=== PATIENT | female | born 1965 | race Caucasian/White ===

== ENCOUNTER 2025-06-28 16:40 | Inpatient (IN) | payer MEDICARE, MEDICAID, SELFPAY ==
[2025-06-28] VITALS (23 sets, daily range): BP systolic 108–162; BP diastolic 58–138; PULSE 75–89; RESP 16–17; TEMP 36.6; O2SAT 92–96; BMI 38.2
--- NOTE | ~2025-06-28 | XR_ITS ---
EXAMINATION: XR chest 1V portable COMPARISON: No comparisons available. HISTORY: Shortness of breath/HX OF COPD AND CHF FINDINGS: Mild pulmonary venous congestion. Small basilar infiltrates. No pneumothorax. Mild cardiomegaly. Mediastinal and hilar contours are within normal limits. Bony thorax no acute abnormality. Miscellaneous: None Impression: Mild CHF Reviewed, dictated and finalized at location P. ODULE ASSEMBLY SUPERVISOR Impression: Mild CHF
--- NOTE | 2025-06-28 16:52 | ED.SOB ---
HPI - SOB/Dyspnea General Chief Complaint: Shortness of Breath/Dyspnea Stated Complaint: sob, decreased appetite. Time Seen by Provider: 06/28/25 16:52 Source: patient and EMS Mode of arrival: EMS History of Present Illness HPI Narrative: 60 YEARS OLD WHITE FEMALE CAME TO THE ED FROM HOME BY AMBULANCE COMPLAINING OF 10 BOUND WEIGHT GAIN OVER THE LAST 3 DAYS, LONG HOURS OF SLEEP, INTERMITTENT LOWER LEGS CRAMPS FOR MONTHS WITHOUT SPECIFIC DIAGNOSIS. PATIENT DENIES ANY FEVER, CHILLS, NAUSEA, VOMITING, CHEST PAIN, SHORTNESS OF BREATH. PATIENT BEEN TO CALL [facility] 3 TIMES OVER THE LAST FEW WEEKS WITH THE SAME SYMPTOM WITHOUT SPECIFIC DIAGNOSIS, SHE IS TELLING ME THAT SHE RECEIVED 1 SHOT OF LASIX THEN DISCHARGED HOME. PATIENT WAS SEEN BY HER FAMILY PHYSICIAN 2 DAYS AGO WITHOUT ANY CHANGE OF MEDICATION OR ANY RECOMMENDATIONS. HISTORY OF COPD CONGESTIVE HEART FAILURE HYPOTHYROIDISM ESSENTIAL TREMORS, QUIT SMOKING 3 YEARS AGO, USES MARIJUANA DAILY, NO ALCOHOL INTAKE. Related Data Home Medications ?Medication ?Instructions ?Recorded ?Confirmed ?Last Taken ?Type albuterol sulfate 2.5 mg/3 mL 2.5 mg inhalation Q4H PRN 06/28/25 06/28/25 06/28/25 History (0.083 %) solution for nebulization shortness of breath or wheezing albuterol sulfate 90 mcg/actuation 2 puff inhalation Q4H PRN 06/28/25 06/28/25 06/28/25 History aerosol inhaler shortness of breath or wheezing aripiprazole 15 mg tablet 15 mg PO DAILY 06/28/25 06/28/25 06/28/25 History famotidine 40 mg tablet 40 mg PO DAILY 06/28/25 06/28/25 06/28/25 History fludrocortisone 0.1 mg tablet 0.1 mg PO .oral 06/28/25 06/28/25 Unknown History fluoxetine 40 mg capsule 40 mg PO QPM 06/28/25 06/28/25 06/28/25 History furosemide 20 mg tablet 20 mg PO DAILY 06/28/25 06/28/25 06/28/25 History hydrocodone 10 mg-acetaminophen 1 tablet PO Q6H PRN pain 06/28/25 06/28/25 06/28/25 History 325 mg tablet hydrocortisone 5 mg tablet 5 mg PO DAILY 06/28/25 06/28/25 06/28/25 History levothyroxine 112 mcg tablet 112 mcg PO DAILY@0630 06/28/25 06/28/25 06/28/25 History primidone 50 mg tablet 50 mg PO DAILY 06/28/25 06/28/25 06/28/25 History tizanidine 4 mg tablet 4 mg PO DAILY 06/28/25 06/28/25 06/28/25 History Allergies Allergy/AdvReac Type Severity Reaction Status Date / Time clarithromycin (From Biaxin) Allergy Severe Anaphylaxis Verified 06/28/25 19:11 Penicillins Allergy Severe Anaphylaxis Verified 06/28/25 19:11 sulfamethoxazole (From Allergy Intermediate foot feel Verified 06/28/25 19:11 Septra) asleep trimethoprim (From Septra) Allergy Intermediate foot feel Verified 06/28/25 19:11 asleep PMFSH Social History Social History Smoking status: Former smoker Alcohol intake: never Substance use: current Substance use type: marijuana Other substance usage details: Gummies at night Last use: Yesterday Lack of Transportation: No Lack of Food: Never True Current Housing: I Have Housing Concerned About Future Housing: No Difficulty Paying Gas/Electric Bills: No Difficulty Paying for Meds: No Currently Unemployed: No Education: Trade/Vocational Certificate Difficulty w/ Childcare or Family Care: No Spiritual care concerns: No Exam Narrative: GENERAL APPEARANCE: WELL-DEVELOPED, WELL-NOURISHED SKIN: NORMAL COLOR, 1+ EDEMA LOWER EXTREMITY BILATERALLY HEAD: NORMOCEPHALIC, NONTRAUMATIC EYES: CLEAR CONJUNCTIVA ENT: OROPHARYNX NORMAL, EARS NORMAL, NOSE NORMAL NECK: SUPPLE, NONTENDER CHEST AND RESPIRATORY: AIRWAY PATENT, NO RESPIRATORY DISTRESS, NO ACCESSORY MUSCLE USE EXPIRATORY WHEEZING AND RHONCHI BILATERALLY HEART: REGULAR RATE/RHYTHM ABDOMEN: SOFT, NONTENDER, NO ORGANOMEGALY, QUIET BOWEL SOUNDS VASCULAR: NORMAL PERIPHERAL PULSES, NORMAL CAPILLARY REFILL. MUSCULOSKELETAL: NORMAL RANGE OF MOTION, NONTENDER BACK NEUROLOGIC: ALERT AND ORIENTED ?3, ICE BAG ASSEMBLER IS NORMAL TESTED, NO GROSS MOTOR DEFICIT Course Vital Signs Vital signs: Vital Signs Temperature 36.6 C 06/28/25 16:40 Pulse Rate 87 06/28/25 16:40 Respiratory Rate 16 06/28/25 16:40 Blood Pressure 157/68 H 06/28/25 16:40 Pulse Oximetry 95 06/28/25 16:40 Oxygen Delivery Nasal Cannula 06/28/25 16:40 Oxygen Flow Rate 2 06/28/25 16:40 Temperature 36.6 C 06/28/25 16:40 Pulse Rate 82 06/28/25 18:50 Respiratory Rate 17 06/28/25 18:50 Blood Pressure 137/87 06/28/25 18:50 Pulse Oximetry 96 06/28/25 18:50 Oxygen Delivery Room Air 06/28/25 18:50 Oxygen Flow Rate 2 06/28/25 18:46 MDM - SOB/Dyspnea MDM Narrative Medical decision making narrative: PATIENT CAME TO THE ED BY AMBULANCE BECAUSE GAINING WEIGHT LONG HOURS SLEEP FOR THE LAST FEW DAYS ALSO HISTORY OF LEG CRAMPS FOR LONG TIME OF UNKNOWN REASON. VITAL SIGNS ARE STABLE PHYSICAL EXAMINATION SHOWING 1+ EDEMA LOWER EXTREMITY BILATERALLY AND EXPIRATORY WHEEZING AND RHONCHI BILATERALLY. DIFFERENTIAL DIAGNOSIS INCLUDE CONGESTIVE HEART FAILURE, COPD EXACERBATION, DEPENDENT EDEMA, RENAL FAILURE, ELECTROLYTE IMBALANCE, BLOOD WORKUP TODAY INCLUDE CBC, CMP, TROPONIN, PRO BMP, MAGNESIUM SHOWED SODIUM 128, POTASSIUM 3.2, CREATININE 1.2, PRO BMP 54, TSH IS 72.000 NO OLD RECORDS FOR COMPARISON. PATIENT NORMALLY GO TO [facility] BLOOD GAS SHOWED ACUTE HYPOXIC RESPIRATORY FAILURE CHEST X-RAY SHOWED MILD CHF ADMIT TO HOSPITALIST DIAGNOSIS: ACUTE HYPOXIC RESPIRATORY FAILURE, COPD, HYPONATREMIA, HYPOKALEMIA, HYPOTHYROIDISM, RENAL FAILURE LEG EDEMA LIKELY SECONDARY TO DEPENDENT EDEMA. PATIENT SIT ON A CHAIR 23/02. Differential Diagnosis Differential diagnosis: Likely other ( ABOVE) Lab Data Attestation: I reviewed the patient's lab results. 06/28/25 17:08 06/28/25 17:08 Labs: Lab Results 06/28/25 06/28/25 06/28/25 Range/Units 17:00 17:07 17:08 WBC 9.7 (4.8-10.8) K/mm3 RBC 3.33 L (4.20-5.40) M/mm3 Hgb 10.8 L (12.0-15.0) g/dL Hct 33.4 L (35.0-49.0) % MCV 100.3 (78.0-102.0) fL MCH 32.4 H (27.0-31.0) pg MCHC 32.3 (32-36) g/dL RDW 15.4 H (11.6-14.4) % Plt Count 361 (150-420) K/mm3 MPV 8.4 L (9.2-11.8) fl Immature Gran % (Auto) 0.4 H (0.0-0.0) % Neut % (Auto) 70.8 H (50.0-70.0) % Lymph % (Auto) 23.6 (18.0-42.0) % [place] % (Auto) 3.7 (2.0-11.0) % Eos % (Auto) 1.2 (1.0-6.0) % Baso % (Auto) 0.3 (0.0-1.0) % Lymph # (Auto) 2.28 (1.10-4.50) K/mm3 [place] # (Auto) 0.36 (0.10-0.90) K/mm3 Eos # (Auto) 0.12 (0.02-0.50) K/mm3 Baso # (Auto) 0.03 (0.00-0.10) K/mm3 Abs Immat Gran (auto) 0.04 H (0.00-0.00) K/mm3 Absolute Neuts (auto) 6.82 (1.70-7.20) K/mm3 Absolute Nucleated RBC 0.00 (0.00-0.00) K/mm3 Nucleated RBC % 0.0 (0-0.0) % PT 9.8 (9.50-12.1) Seconds INR 0.9 APTT 30.2 (23.9-30.70) Sec Sodium 128 L (137-145) mmol/L Potassium 3.2 L (3.4-5.0) mmol/L Chloride 77 L (98-107) mmol/L Carbon Dioxide > 40 H (22-30) mmol/L Anion Gap 10.54387 (4-12) mmol/L BUN 9 (7-17) mg/dL Creatinine 1.29 H (0.7-1.0) mg/dL Estim Creat Clear Calc 45 ml/min Estimated GFR 42 L (59 - ) Glucose 91 (65-110) mg/dL Calculated Osmolality 264 L (285-295) mOsm/kg Calcium 8.9 (8.4-10.2) mg/dL Magnesium 2.0 (1.6-2.3) mg/dL Total Bilirubin 0.1 L (0.2-1.3) mg/dL AST 42 H (14-36) U/L ALT 27 (6-35) U/L Alkaline Phosphatase 69 (38-126) U/L Troponin I < 0.012 (0.000-0.034) ng/mL NT-Pro-B Natriuret Pep 54 (19.9-100) pg/mL Total Protein 6.8 (6.3-8.2) g/dL Albumin 4.1 (3.5-5.1) g/dL TSH 72.000 H (0.465-4.680) uIU/mL Influenza A (RT-PCR) Negative (Negative) Influenza B (RT-PCR) Negative (Negative) RSV (RT-PCR) Negative (Negative) SARS-CoV-2 RNA (RT-PCR) Negative (Negative) ABG Data ABG results: 06/28/25 17:08 Puncture Site Right radial ABG pH 7.44 ABG pCO2 61.7 H ABG pO2 49.8 L ABG HCO3 41.3 H ABG O2 Saturation 88.1 L ABG Base Excess 14.7 H Oxyhemoglobin 87.1 L O2 Delivery Device Nasal cannula O2 Liters/Min 2.0 Imaging Data Radiologist's impression: Impressions Chest X-Ray 06/28/25 17:08 Impression: Mild CHF ECG Data EKG #1: Attestation: I personally reviewed and interpreted this ECG as follows: ECG completion date: 06/28/25 Interpretation: NORMAL SINUS RHYTHM AT 82 BEATS PER MINUTE, NONSPECIFIC ST T-WAVE ABNORMALITY, BORDERLINE EKG, NO PREVIOUS EKG AVAILABLE FOR COMPARISON Critical Care Time Critical Care Time Critical Care Time: No Discharge Plan Discharge Clinical Impression: Acute hypoxic respiratory failure, COPD (chronic obstructive pulmonary disease), Hypokalemia, Hyponatremia, Hypothyroidism, Renal failure Patient Disposition: Still a Patient Condition: Stable
--- NOTE | 2025-06-28 16:53 | ECG_ITS ---
Test Date: 2025-06-28 17:12:27 Measurements Intervals [place] Rate: 82 P: 37 DC: 183 QRS: 37 QRSD: 110 T: 10 QT: 387 QTc: 453 Interpretive Statements SINUS RHYTHM NONSPECIFIC ST ABNORMALITY ABNORMAL ECG No previous ECG available for comparison Electronically Signed On 06-28-2025 17:43:38 MANUAL PLATE FILLER by Franklyn Reyes M.D.
[2025-06-28 17:12] LABS: HCO3 ABG 41.3 mmol/L (23-29); Oxygen Saturation ABG 88.1 % (95-97); PCO2 ABG 61.7 mmHg (35-45); PO2 ABG 49.8 mmHg (80-90)
[2025-06-28 17:13] LABS: Liters per Minute 2.0 LPM; Modified Allen's Test Pass; Site Drawn RIGHT RADIAL
[2025-06-28 17:14] LABS: Hematocrit 33.4 % (35.0-49.0); Hemoglobin 10.8 g/dL (12.0-15.0); Immature Granulocyte Percent A 0.4 % (0.0-0.0); Lymphocytes Absolute Auto 2.28 K/mm3 (1.10-4.50); Mean Corpuscular HGB Conc 32.3 g/dL (32-36); Mean Corpuscular Hemoglobin 32.4 pg (27.0-31.0); Mean Corpuscular Volume 100.3 fL (78.0-102.0); Nucleated Red Blood Cells Absolute Auto 0.00 K/mm3 (0.00-0.00); Nucleated Red Blood Cells Perc 0.0 % (0-0.0); Platelet Count Result 361 K/mm3 (150-420); Red Blood Count 3.33 M/mm3 (4.20-5.40); White Blood Count 9.7 K/mm3 (4.8-10.8)
[2025-06-28 17:25] LABS: Alanine Aminotransferase 27 U/L (6-35); Albumin Level 4.1 g/dL (3.5-5.1); Alkaline Phosphatase 69 U/L (38-126); Anion Gap 10.99999 mmol/L (4-12); Aspartate Amino Transferase 42 U/L (14-36); Bilirubin,Total 0.1 mg/dL (0.2-1.3); Blood Urea Nitrogen 9 mg/dL (7-17); Calcium 8.9 mg/dL (8.4-10.2); Carbon Dioxide > 40 mmol/L (22-30); Chloride 77 mmol/L (98-107); Estimated CRCL calculation 45 ml/min; Estimated Glomerular Filt Rate 42; Glucose 91 mg/dL (65-110); Magnesium 2.0 mg/dL (1.6-2.3); Osmolality Calculated 264 mOsm/kg (285-295); Potassium 3.2 mmol/L (3.4-5.0); Sodium 128 mmol/L (137-145); Total Protein 6.8 g/dL (6.3-8.2)
[2025-06-28 17:27] LABS: INR 0.9; Partial Thromboplastin Time 30.2 Sec (23.9-30.70); Prothrombin Time 9.8 Seconds (9.50-12.1)
[2025-06-28 17:37] LABS: NT Pro B Type Natriuretic Pept 54 pg/mL (19.9-100); Troponin I < 0.012 ng/mL (0.000-0.034)
--- OUTSIDE RECORDS SUMMARY | 2025-06-28 17:44 | XMS_ITS ---
Author Organization Unknown Address [address] [place] [phone] Phone Care Team Providers Care Bufferer Name Role Phone EVERTON OCASIO Attending Unavailable CARLOS Cifuentes Primary Unavailable Immunization Immunization Date Status Additional Notes Code Code System Influenza, split virus, trivalent, preservative 05/09/2013 Completed 141 CVX COVID-19, mRNA, LNP-S, PF, 3 0 mcg/0.3 mL dose 03/21/2021 Completed 208 CVX COVID-19, mRNA, LNP-S, PF, 3 0 mcg/0.3 mL dose 04/11/2021 Completed 208 CVX Results ACTH(REF) - Collect Date/Hossein e: 01/01/2024 08:37 [facility] ID: [id number] [address] [place] [address], [phone] LOINC: 2141-0 Test Value Unit Reference Range Code Code System Flag ACTH, Plasma 106.0 7.2-63.3 2141-0 LOINC H CORTISOL - Collect Date/Time : 01/01/2024 08:37 [facility] ID: [id number] [address] [place] [address], [id number] LOINC: 2143-6 Test Value Unit Reference Range Code Code System Flag COLLECTION DATE 01-01-24 COLLECTION TIME 0837 Cortisol 6.5 6.2-19.4 2143-6 LOINC BASIC METABOLIC PANEL - Kate ect Date/Time: 01/01/2024 08:37 [facility] ID: [id number] [address] [place], [place], [phone] LOINC: 47752-2 Test Value Unit Reference Range Code Code System Flag FASTING YES BUN 20 mg/dL L=7 H=20 3094-0 LOINC CREATININE 1.40 mg/dL L=0.52 H=1.04 2160-0 LOINC H GLUCOSE 92 mg/dL L=74 H=106 2345-7 LOINC CALCIUM 8.7 mg/dL L=8.3 H=10.5 45845-2 LOINC SODIUM 136 mmol/L L=132 H=144 2951-2 LOINC POTASSIUM 5.0 mmol/L L=3.5 H=5.1 2823-3 LOINC CHLORIDE 97 mmol/L L=98 H=107 2075-0 LOINC L CO2 37.0 mmol/L L=22.0 H=30.0 2028-9 LOINC H ANION GAP 7 L=10 H=20 08702-7 LOINC L BUN/CREAT 14.3 3097-3 LOINC AGE 58 84770-4 LOINC eGFR NON-AFR 41 ml/min eGFR AFR AMER 50 ml/min Social History Type Status Start Date End Date Code Code Syst em Smoking History Current every day smoker 552406599 SNOMED CT Sex Female Medications Medication Start Date End Date Route Frequency Dose Code Code System Medication Instructions Home Meds Levothyroxine Sodium 112MCG Oral Tablet 08/19/2018 Unknown ORAL ONCE A DAY 112 MCG 075419 RxNorm TAKE 112 MCG ORAL ONCE A DAY Omeprazole 40MG Oral Capsule, Delayed Release 08/19/2018 Unknown ORAL ONCE A DAY 40 MILLIGRA MS 049251 RxNorm TAKE 40 MILLIGRAM S ORAL ONCE A DAY predniSONE 10MG Oral Tablet 02/20/2023 Unknown ORAL DAILY WITH MEAL 20 MILLIGRA MS 427033 RxNorm TAKE 20 MILLIGRAM S ORAL DAILY WITH MEAL FOR 5 DAYS FOLLOWED BY 10 MG PO FAILY FOR 5 DAYS ARIPiprazole 15MG Oral Tablet 02/20/2023 Unknown ORAL ONCE A DAY 15 MILLIGRA MS 787969 RxNorm TAKE 15 MILLIGRAM S ORAL ONCE A DAY FLUoxetine 20MG Oral Capsule 02/20/2023 Unknown ORAL ONCE A DAY 20 MILLIGRA MS 912874 RxNorm TAKE 20 MILLIGRAM S ORAL ONCE A DAY Famotidine 40MG Oral Tablet 02/20/2023 Unknown ORAL AT BEDTIME 40 MILLIGRA MS 950194 RxNorm TAKE 40 MILLIGRAM S ORAL AT BEDTIME Fludrocortisone Acetate 0.1MG Oral Tablet 02/20/2023 Unknown ORAL ONCE A DAY 0.1 MILLIGRA MS 377900 RxNorm TAKE 0.1 MILLIGRAM S ORAL ONCE A DAY HYDROcodone bitartrate-aceta minophen 10MG-300MG Oral Tablet 02/20/2023 Unknown ORAL NEEDED EVERY 6 HOURS 1 TABLET 774868 RxNorm TAKE 1 TABLET ORAL NEEDED EVERY 6 HOURS FOR PAIN Hydrocortisone 5MG Oral Tablet 02/20/2023 Unknown ORAL DAILY WITH MEAL 15 MILLIGRA MS 19770309 RxNorm TAKE 15 MILLIGRAM S ORAL DAILY WITH MEAL Hydrocortisone 5MG Oral Tablet 02/20/2023 Unknown ORAL EVERY EVENING 10 MILLIGRA MS 19770309 RxNorm TAKE 10 MILLIGRAM S ORAL EVERY EVENING Incruse Ellipta 62.5MCG/1ACT Inhalation Powder 02/20/2023 Unknown INHALATION ONCE A DAY 1 unit(s) 5599256 RxNorm 1 EACH INHALATIO N ONCE A DAY Potassium Chloride 10MEQ Oral Capsule, Extended Release 02/20/2023 Unknown ORAL ONCE A DAY 10 MEQ 642566 RxNorm TAKE 10 MEQ ORAL ONCE A DAY Primidone 50MG Oral Tablet 02/20/2023 Unknown ORAL AT BEDTIME 125 MILLIGRA MS 568250 RxNorm TAKE 125 MILLIGRAM S ORAL AT BEDTIME Primidone 50MG Oral Tablet 02/20/2023 Unknown ORAL ONCE A DAY 200 MILLIGRA MS 771092 RxNorm TAKE 200 MILLIGRAM S ORAL ONCE A DAY Primidone 50MG Oral Tablet 02/20/2023 Unknown ORAL DAILY AT 1200 125 MILLIGRA MS 102776 RxNorm TAKE 125 MILLIGRAM S ORAL DAILY AT 1200 Symbicort 160/4.5 160MCG-4.5MCG/1 Actu Inhalation Aerosol Liquid 02/20/2023 Unknown INHALATION TWICE A DAY 2 unit(s) 1793360 RxNorm 2 EACH INHALATIO N TWICE A DAY Vitamin D3 1000IU Oral Tablet 02/20/2023 Unknown ORAL ONCE A DAY 1 TABLET 19930102 RxNorm TAKE 1 TABLET ORAL ONCE A DAY Assessment You had the following problems:DIARRHEACONTACT WITH AND (SUSPECTED) EXPOSURE TO COVID-19ENCOUNTER FOR SCREENING FOR COVID-19 Hospital Discharge Instructions Should you have any questions prior to discharge, please contact a member of your healthcare team. If you have left the hospital and have any questions, please contact your primary care physician. Reason For Referral No Data Found Problems Problem Start Date Resolved Date Status Code Code System DIARRHEA active 40525877 SNOMED-CT CONTACT WITH AND (SUSPECTED) EXPOSURE TO COVID-19 active 895837440 SNOMED- CT ENCOUNTER FOR SCREENING FOR COVID-19 active 095454054 SNOMED-CT Allergies and Adverse Reactions Allergy Substance Reaction Severity Start Date Concern Status Code Code System SULFA (sulfonamide) FOOT WENT TO SLEEP (SNOMED-CT: null) Moderate Active 47320906 SNOMED-CT BIAXIN ANGIOEDEMA (SNOMED-CT: null) Moderate Active 757789 RxNorm PENICILLIN ANGOIEDEMA (SNOMED-CT: null) Moderate Active Plan of Treatment Hai Established Patient 026 US Echo With Color (21805) 07/12/2025 CT Chest CA Screen (43370) 07/21/2025 Encounters Encounter Diagnosis Start Date Code Code Sys tem Unspecified adrenocortical insufficiency 01/01/2024 SNOMED-CT Personal Care Team Section Performer Name Performer Role Active Date Inactive GLADYS Church PCP - Primary care physician 2021-03-02 2022-04-01 SANDRA GONZALEZ PCP - Primary care physician 2022-04-01
--- OUTSIDE RECORDS SUMMARY | 2025-06-28 17:44 | XMS_ITS ---
Author Organization Unknown Address [address] [place] [phone] Phone Care Team Providers Care Farm Products Shipper Name Role Phone EMMA BRISCOE Attending Unavailable CARLOS Cifuentes Primary Unavailable Immunization Immunization Date Status Additional Notes Code Code System Influenza, split virus, trivalent, preservative 05/09/2013 Completed 141 CVX COVID-19, mRNA, LNP-S, PF, 3 0 mcg/0.3 mL dose 03/21/2021 Completed 208 CVX COVID-19, mRNA, LNP-S, PF, 3 0 mcg/0.3 mL dose 04/11/2021 Completed 208 CVX Social History Type Status Start Date End Date Code Code Syst em Smoking History Current every day smoker 287021943 SNOMED CT Sex Female Medications Medication Start Date End Date Route Frequency Dose Code Code System Medication Instructions Home Meds Levothyroxine Sodium 112MCG Oral Tablet 08/19/2018 Unknown ORAL ONCE A DAY 112 MCG 678260 RxNorm TAKE 112 MCG ORAL ONCE A DAY Omeprazole 40MG Oral Capsule, Delayed Release 08/19/2018 Unknown ORAL ONCE A DAY 40 MILLIGRA MS 805361 RxNorm TAKE 40 MILLIGRAM S ORAL ONCE A DAY predniSONE 10MG Oral Tablet 02/20/2023 Unknown ORAL DAILY WITH MEAL 20 MILLIGRA MS 115740 RxNorm TAKE 20 MILLIGRAM S ORAL DAILY WITH MEAL FOR 5 DAYS FOLLOWED BY 10 MG PO FAILY FOR 5 DAYS ARIPiprazole 15MG Oral Tablet 02/20/2023 Unknown ORAL ONCE A DAY 15 MILLIGRA MS 435029 RxNorm TAKE 15 MILLIGRAM S ORAL ONCE A DAY FLUoxetine 20MG Oral Capsule 02/20/2023 Unknown ORAL ONCE A DAY 20 MILLIGRA MS 203847 RxNorm TAKE 20 MILLIGRAM S ORAL ONCE A DAY Famotidine 40MG Oral Tablet 02/20/2023 Unknown ORAL AT BEDTIME 40 MILLIGRA MS 911384 RxNorm TAKE 40 MILLIGRAM S ORAL AT BEDTIME Fludrocortisone Acetate 0.1MG Oral Tablet 02/20/2023 Unknown ORAL ONCE A DAY 0.1 MILLIGRA MS 547696 RxNorm TAKE 0.1 MILLIGRAM S ORAL ONCE A DAY HYDROcodone bitartrate-aceta minophen 10MG-300MG Oral Tablet 02/20/2023 Unknown ORAL NEEDED EVERY 6 HOURS 1 TABLET 432619 RxNorm TAKE 1 TABLET ORAL NEEDED EVERY [...] Unknown INHALATION ONCE A DAY 1 unit(s) 7302472 RxNorm 1 EACH INHALATIO N ONCE A DAY Potassium Chloride 10MEQ Oral Capsule, Extended Release 02/20/2023 Unknown ORAL ONCE A DAY 10 MEQ 781601 RxNorm TAKE 10 MEQ ORAL ONCE A DAY Primidone 50MG Oral Tablet 02/20/2023 Unknown ORAL AT BEDTIME 125 MILLIGRA MS 042046 RxNorm TAKE 125 MILLIGRAM S ORAL AT BEDTIME Primidone 50MG Oral Tablet 02/20/2023 Unknown ORAL ONCE A DAY 200 MILLIGRA MS 131976 RxNorm TAKE 200 MILLIGRAM S ORAL ONCE A DAY Primidone 50MG Oral Tablet 02/20/2023 Unknown ORAL DAILY AT 1200 125 MILLIGRA MS 642478 RxNorm TAKE 125 MILLIGRAM S ORAL DAILY AT 1200 Symbicort 160/4.5 160MCG-4.5MCG/1 Actu Inhalation Aerosol Liquid 02/20/2023 Unknown INHALATION TWICE A DAY 2 unit(s) 9998203 RxNorm 2 EACH INHALATIO N TWICE A [...] Date Status Code Code System DIARRHEA active 41620391 SNOMED-CT CONTACT WITH AND (SUSPECTED) EXPOSURE TO COVID-19 active 888553234 SNOMED- CT ENCOUNTER FOR SCREENING FOR COVID-19 active 715474413 SNOMED-CT Allergies and Adverse Reactions Allergy Substance Reaction Severity Start Date Concern Status Code Code System SULFA (sulfonamide) FOOT WENT TO SLEEP (SNOMED-CT: null) Moderate Active 86957781 SNOMED-CT BIAXIN ANGIOEDEMA (SNOMED-CT: null) Moderate Active 911027 RxNorm PENICILLIN ANGOIEDEMA (SNOMED-CT: null) Moderate Active Plan of Treatment Hai Established Patient 026 US Echo With Color (61832) 07/12/2025 CT Chest CA Screen (12868) 07/21/2025 Encounters Encounter Diagnosis Start Date Code Code Sys tem Diarrhea, unspecified 01/27/2024 SNOMED -CT Personal Care Team Section Performer Name Performer Role Active Date Inactive GLADYS Church PCP - Primary care physician 2021-03-02 2022-04-01 SANDRA GONZALEZ PCP - Primary care physician 2022-04-01
--- OUTSIDE RECORDS SUMMARY | 2025-06-28 17:44 | XMS_ITS | Clinical Summary ---
Author Organization [facility] Address [address] [place] [address] Care Team Providers Care Recruiting Manager Name Role Phone Kevin Limon MD Primary Care Provider [phone] Allergies Active Allergy Reactions Criticality Noted Date Comments Clarithromycin Rash Low 04/04/2022 Penicillins Rash Low 04/04/2022 Sulfamethoxazole-Trimethoprim Other (see comment) 04/04/2022 numbness Medications ARIPiprazole (ABILIFY) 15 MG tabletIndicatio ns:mood Take 15 mg by mouth daily. Indications: mood 2 Active albuterol sulfate HFA 108 (90 Base) MCG/ACT inhaler Inhale 2 puffs into the lungs every 6 (six) hours as needed for Wheezing. Active HYDROcodone-elenita taminophen (NORCO) 10-325 MG tablet Take 1 tablet by mouth every 6 (six) hours as needed for Pain. Active levothyroxine (SYNTHROID) 112 MCG tabletIndicatio ns:thyroid Take 112 mcg by mouth every morning. Indications: thyroid 2 Active omeprazole (PRILOSEC) 20 MG capsuleIndicati ons:reflux Take 20 mg by mouth 2 (two) times a day. Indications: reflux 2 Active potassium chloride CR (KLOR-CON M) 10 MEQ tabletIndicatio ns:supplement Take 10 mEq by mouth daily. Indications: supplement 2 Active PARoxetine (PAXIL) 20 MG tablet [The details of the medication are not available because there are pending changes by a home health clinician.] 30 tablet 1 2 Active Additional Information Patient taking differently:20 mg Oral Nightly,Indications: mood, Reported on 05/06/2022 primidone (MYSOLINE) 250 MG tablet [The details of the medication are not available because there are pending changes by a home health clinician.] 30 split tab 1 2 Active Additional Information Patient taking differently: 0.5 tabletOral Nightly at bedtime,Indications: seizure, Reported on 04/16/2022 primidone (MYSOLINE) 50 MG tablet [The details of the medication are not available because there are pending changes by a home health clinician.] 120 tablet 2 Active Additional Information Patient taking differently:200 mg Oral Daily,Indications: seizure, Reported on 05/06/2022 primidone (MYSOLINE) 250 MG tablet [The details of the medication are not available because there are pending changes by a home health clinician.] 30 tablet 1 2 Active Additional Information Patient taking differently: 0.5 tabletOral Daily before lunch,Indications: seizure, Reported on 04/16/2022 Emollient (BOUDREAUXS BABY BUTT SMOOTH EX)Indications: red sore sacral skin Apply 1 Application topically 3 (three) times daily as needed (red sore sacral skin). Indications: red sore sacral skin 2 Active Calcium Carbonate+Vitam in D 600-200 MG-UNIT TabIndications: supplement Take 1 tablet by mouth daily. Indications: supplement 2 Active Vitamin D3, cholecalciferol , 2000 UNIT Tab tabletIndicatio ns:supplement Take 2,000 Units by mouth daily. Indications: supplement 2 Active OXYGENIndicatio ns:oxygen 1 L/min by Nasal route continuous. Indications: oxygen 2 Active Active Problems Problem Noted Date Diagnosed Date Acute on chronic systolic co ngestive heart failure (CMS/HCC) 05/06/2022 Elevated troponin 04/03/2022 Other chest pain 04/03/2022 Hyponatremia 04/01/2022 Family History Medical History Relation Comments Heart Disease Father Relation Status Comments Father Social History Tobacco Use Types Packs/Day Years Used Date Smoking Tobacco: Every Day Alcohol Use Standard Drinks/Week Comments Never 0 (1 standard drink = 0.6 oz pur e alcohol) Comments Unknown Sex and Gender Information Value Date Recorded Sex Assigned at Not on file Legal Sex Female 8:58 PM FIRST BEATER Gender Identity Not on file Sexual Orientation Not on file Last Filed Vital Signs Vital Sign Reading Time Taken Comments Blood Pressure 114/72 06/11/2022 2:41 PM FIRST BEATER Pulse 94 06/11/2022 2:41 PM FIRST BEATER Temperature 35.8 C (96.4 F) 06/11/2022 2:41 PM FIRST BEATER Respiratory Rate 16 06/11/2022 2:41 PM FIRST BEATER Oxygen Saturation 96% 06/11/2022 2:41 PM FIRST BEATER Inhaled Oxygen Concentration - - Weight 60.5 kg (133 lb 6.4 oz) 05/06/2022 9:50 A M CDT Height 160 cm (5' 3) 05/06/2022 9:50 AM CDT Body Mass Index 23.63 05/06/2022 9:50 AM CDT Plan of Treatment Health Maintenance Due Date Last Done Comments Cervical Cancer Screening Pa p Smear (Age 30 to 64) Every 3 Years 1965 Colorectal Cancer Screening Colonoscopy (10 Years) 1965 Annual Physical 1966 Hepatitis C 1981 DTaP, Tdap and Td Vaccines ( 1 - Tdap) 1982 Pneumococcal Vaccine: 50+ Ye ars (1 of 2 - PCV) 1982 Cervical Cancer Screening Pa p with HPV Testing (Age 30 to 64) Every 5 Years 1993 Cervical Cancer Screening with HPV 1993 Zoster Vaccines (1 of 2) 2013 Mammogram Screening 07/28/2021 07/28/2019 RSV Immunization or 60+ Years (1 - Risk 60-74 years 1-dose series) 2023 COVID-19 Vaccine ( - 2024-2 6 season) 2025 Influenza Adult (#1) 2025 Hepatitis A Vaccines Aged Out No long er eligible based on patient's age to complete this topic Meningococcal B Vaccine Aged Out No l onger eligible based on patient's age to complete this topic Meningococcal Vaccine Aged Out No emily karla eligible based on patient's age to complete this topic RSV Immunizations Under 20 Months Aged Out No longer eligible based on patient's age to complete this topic Goals Goal Patient Goal Type Associated Problems Recent Progress Patient-Stated? Author Patient will return to prior living situation and remain independent in ADLs upon discharge from hospital Lifestyle No Danisha Bhagat, chairman president and chief executive officer Procedure Name Priority Date/Time Associated Diagnosis Comments MG SCREENING W BABATUNDE WANDA DIGI Routine 07/28/2019 9:24 AM FIRST BEATER Visit for screening mammogram from Last 3 Months or Most Recently Relevant to Health Maintenance Results * MG SCREENING W BABATUNDE WANDA DIGI (07/28/2019 9:24 AM FIRST BEATER) Anatomical Region Laterality Modality Breast Bilateral Mammography 08/01/2019 8:37 AM FIRST BEATER Impressions 08/01/2019 8:41 AM FIRST BEATER IMPRESSION: No interval features to suggest malignancy. In the absence of clinical symptoms, return for annual screening due in one year. RECOMMENDATION: Routine Screening, BILATERAL in 1 year ASSESSMENT: ACR BI-RADS 2 - BENIGN FINDING(S) Interpreted By: Vera Youssef MD, 08/01/2019 8:37 AM Narrative 08/01/2019 8:41 AM FIRST BEATER EXAMINATION: BILATERAL SCREENING MAMMOGRAPHY CLINICAL INDICATION: 54 years of age female routine screening. COMPARISON: Screening mammogram(s) 07/20, 07/19, 06/18 TECHNIQUE: Digital CC & MLO views. Tomosynthesis imaging acquisition Study read with the assistance of a computer-aided detection system. TISSUE DENSITY: There are scattered areas of fibroglandular density. FINDINGS: Few scattered calcifications. Stable glandular pattern with similar asymmetric patches. No suspicious grouping of microcalcifications, architectural distortion, or new dominant suspicious nodule 3 dimensionally demonstrated in either breast. Ivan Rubin MD MAMMO Final Result from Last 3 Months or Most Recently Relevant to Health Maintenance Insurance [employer] MEDICARE [facility] Advance Directives * Full Code (Latest Code Status on File) Date Activated Date Inactivated Comments 04/16/2022 11:14 AM * Full Code Date Activated Date Inactivated Comments 04/01/2022 11:27 PM 04/10/2022 2:52 PM Care Teams Recruiting Manager Relationship Specialty Start Date End Date Kevin Limon MD PCP - General FAMILY PRACTICE 04/10/22
--- OUTSIDE RECORDS SUMMARY | 2025-06-28 17:44 | XMS_ITS ---
Author Organization Unknown Address [address] [place] [phone] Phone Care Team Providers Care Assembler Camper Name Role Phone WARRENKelton LUIS ARMANDO Attending Unavailable CARLOS Cifuentes Primary Unavailable Immunization [...] em Smoking History Current every day smoker 658239870 SNOMED CT Sex Female Medications Medication Start Date End Date Route Frequency Dose Code Code System Medication Instructions Home Meds Levothyroxine Sodium 112MCG Oral Tablet 08/19/2018 Unknown ORAL ONCE A DAY 112 MCG 683705 RxNorm TAKE 112 MCG ORAL ONCE A DAY Omeprazole 40MG Oral Capsule, Delayed Release 08/19/2018 Unknown ORAL ONCE A DAY 40 MILLIGRA MS 997664 RxNorm TAKE 40 MILLIGRAM S ORAL ONCE A DAY predniSONE 10MG Oral Tablet 02/20/2023 Unknown ORAL DAILY WITH MEAL 20 MILLIGRA MS 007351 RxNorm TAKE 20 MILLIGRAM S ORAL DAILY WITH MEAL FOR 5 DAYS FOLLOWED BY 10 MG PO FAILY FOR 5 DAYS ARIPiprazole 15MG Oral Tablet 02/20/2023 Unknown ORAL ONCE A DAY 15 MILLIGRA MS 787955 RxNorm TAKE 15 MILLIGRAM S ORAL ONCE A DAY FLUoxetine 20MG Oral Capsule 02/20/2023 Unknown ORAL ONCE A DAY 20 MILLIGRA MS 774990 RxNorm TAKE 20 MILLIGRAM S ORAL ONCE A DAY Famotidine 40MG Oral Tablet 02/20/2023 Unknown ORAL AT BEDTIME 40 MILLIGRA MS 114955 RxNorm TAKE 40 MILLIGRAM S ORAL AT BEDTIME Fludrocortisone Acetate 0.1MG Oral Tablet 02/20/2023 Unknown ORAL ONCE A DAY 0.1 MILLIGRA MS 903278 RxNorm TAKE 0.1 MILLIGRAM S ORAL ONCE A DAY HYDROcodone bitartrate-aceta minophen 10MG-300MG Oral Tablet 02/20/2023 Unknown ORAL NEEDED EVERY 6 HOURS 1 TABLET 359741 RxNorm TAKE 1 TABLET ORAL NEEDED EVERY [...] Unknown INHALATION ONCE A DAY 1 unit(s) 1463825 RxNorm 1 EACH INHALATIO N ONCE A DAY Potassium Chloride 10MEQ Oral Capsule, Extended Release 02/20/2023 Unknown ORAL ONCE A DAY 10 MEQ 552659 RxNorm TAKE 10 MEQ ORAL ONCE A DAY Primidone 50MG Oral Tablet 02/20/2023 Unknown ORAL AT BEDTIME 125 MILLIGRA MS 484512 RxNorm TAKE 125 MILLIGRAM S ORAL AT BEDTIME Primidone 50MG Oral Tablet 02/20/2023 Unknown ORAL ONCE A DAY 200 MILLIGRA MS 538299 RxNorm TAKE 200 MILLIGRAM S ORAL ONCE A DAY Primidone 50MG Oral Tablet 02/20/2023 Unknown ORAL DAILY AT 1200 125 MILLIGRA MS 585685 RxNorm TAKE 125 MILLIGRAM S ORAL DAILY AT 1200 Symbicort 160/4.5 160MCG-4.5MCG/1 Actu Inhalation Aerosol Liquid 02/20/2023 Unknown INHALATION TWICE A DAY 2 unit(s) 4876817 RxNorm 2 EACH INHALATIO N TWICE A [...] Date Status Code Code System DIARRHEA active 01001411 SNOMED-CT CONTACT WITH AND (SUSPECTED) EXPOSURE TO COVID-19 active 037974061 SNOMED- CT ENCOUNTER FOR SCREENING FOR COVID-19 active 152868170 SNOMED-CT Allergies and Adverse Reactions Allergy Substance Reaction Severity Start Date Concern Status Code Code System SULFA (sulfonamide) FOOT WENT TO SLEEP (SNOMED-CT: null) Moderate Active 49680064 SNOMED-CT BIAXIN ANGIOEDEMA (SNOMED-CT: null) Moderate Active 191310 RxNorm PENICILLIN ANGOIEDEMA (SNOMED-CT: null) Moderate Active Plan of Treatment Hai Established Patient 026 US Echo With Color (26781) 07/12/2025 CT Chest CA Screen (19757) 07/21/2025 Encounters Encounter Diagnosis Start Date Code Code Sys tem 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 Valles Event Data SpO2 Pulse %SpO2 Level Events Below% Time% Total Events 3 3 99 95 0 100 100.0 Time in Events 5.3 0.9 94 - 90 2 95 98.7 Avg. Event Dur. 106.7 18.7 89 85 1 90 2.9 Index (1h) 0.5 84 80 0 85 0.8 Oxygen Desat Index .05 79 75 0 80 0.1 % Artifact 25.5 25.7 74 70 0 75 0.0 Adjusted Index (1hr) 0.6 0.6 69 65 0 70 0.0 64 60 0 65 0.0 % SpO2 Data Basal SpO2% 91.8 Time (min) < 88% 3.3 Events < 88% 0 Max Single time <88% 80 sec at 21:45 Minimum SpO2 % 78 Maximum SpO2 % 96 Avg. Low SpO2 % 90.7 Avg Low SpO2 <88% ---- Pulse Data Avg. Pulse Rate (bpm) 72.1 Low Pulse Rate (bpm) 59 High Pulse Rate (bpm) 115 Physician Impression: The above test showed no significant desaturation overnight on 2 L oxygen.
--- OUTSIDE RECORDS SUMMARY | 2025-06-28 17:44 | XMS_ITS ---
Author Organization Unknown Address [address] [place] [phone] Phone Care Team Providers Care Evaluation Manager Name Role Phone NEREIDA Orourke Attending Unavailable CARLOS Cifuentes Primary Unavailable Immunization Immunization Date Status Additional Notes Code Code System Influenza, split virus, trivalent, preservative 05/09/2013 Completed 141 CVX COVID-19, mRNA, LNP-S, PF, 3 0 mcg/0.3 mL dose 03/21/2021 Completed 208 CVX COVID-19, mRNA, LNP-S, PF, 3 0 mcg/0.3 mL dose 04/11/2021 Completed 208 CVX Results COMPREHENSIVE METABOLIC PANE L - Collect Date/Time: 06/16/2025 11:47 [facility] ID: [id number] [place], [place], [phone] LOINC: 47353-7 Test Value Unit Reference Range Code Code System Flag FASTING UNKNOWN BUN 15 mg/dL L=7 H=20 3094-0 LOINC CREATININE 1.50 mg/dL L=0.52 H=1.04 2160-0 LOINC H AGE 60 94351-1 LOINC eGFR 39 GLUCOSE 108 mg/dL L=74 H=106 2345-7 LOINC H SODIUM 133 mmol/L L=132 H=144 2951-2 LOINC POTASSIUM 3.7 mmol/L L=3.5 H=5.1 2823-3 LOINC CHLORIDE 84 mmol/L L=98 H=107 2075-0 LOINC L CO2 41.0 mmol/L L=22.0 H=30.0 2028-9 LOINC H ANION GAP 12 L=10 H=20 32479-1 LOINC OSMOLALITY 277 mOs/kG L=280 H=296 13000-8 LOINC L BUN/CREAT 10.0 3097-3 LOINC CALCIUM 8.9 mg/dL L=8.3 H=10.5 00060-1 LOINC AST 29 U/L L=15 H=46 1920-8 LOINC ALT 22 U/L L=9 H=72 1742-6 LOINC ALKALINE PHOS 73 U/L L=38 H=126 6768-6 LOINC TOTAL BILI 0.1 mg/dL L=0.2 H=1.3 1975-2 LOINC L ALBUMIN 3.9 G/dL L=3.5 H=5.0 1751-7 LOINC TOTAL PROTEIN 6.6 g/L L=6.3 H=8.2 2885-2 LOINC A/G RATIO 1.4 62397-9 LOINC LACTIC ACID - Collect Date/T marga: 06/16/2025 11:47 [facility] ID: [id number] [address] [place] [address], [phone] LOINC: 65395-2 Test Value Unit Reference Range Code Code System Flag LACTIC ACID 1.8 mmol/L L=0.7 H=2.6 10864-0 LOINC MAGNESIUM - Collect Date/Hossein e: 06/16/2025 11:47 [facility] ID: [id number] [address] [place] [address], [phone] LOINC: 24667-5 Test Value Unit Reference Range Code Code System Flag MAGNESIUM 2.2 mg/dL L=1.6 H=2.3 37004-8 LOINC CBC W/ DIFF - Collect Date/T marga: 06/16/2025 11:47 [facility] ID: [id number] [address] [place] [address], [phone] LOINC: 89820-9 Test Value Unit Reference Range Code Code System Flag WBC 9.2 10^3uL L=4.0 H=10.5 RBC 3.14 10^6uL L=4.20 H=5.40 L HEMOGLOBIN 10.3 g/dL L=12.0 H=16.0 718-7 LOINC L HEMATOCRIT 32.8 VOL% L=37.0 H=47.0 4544-3 LOINC L MCV 104.5 fL L=81.0 H=99.0 H MCH 32.8 pg L=27.0 H=32.0 H MCHC 31.4 g/dL L=32.0 H=36.0 L PLATELETS 290 10^3uL L=100 H=400 74783-9 LOINC RDW 15.9 % L=11.7 H=15.5 H %GRAN 78.8 % L=40.0 H=70.0 41435-5 LOINC H %LYMPH 16.2 % L=20.0 H=45.0 736-9 LOINC L %MONO 3.4 % L=2.0 H=10.0 07195-0 LOINC %EOS 1.0 % L=0.0 H=6.0 713-8 LOINC %BASO 0.4 % L=0.0 H=3.0 706-2 LOINC #NEUT 7.3 10^3uL L=1.9 H=7.6 17091-3 LOINC #LYMPH 1.5 10^3uL L=0.9 H=4.9 40037-4 LOINC #MONO 0.3 10^3uL L=0.1 H=0.9 03825-3 LOINC #EOS 0.1 10^3uL L=0.0 H=0.6 712-0 LOINC #BASO 0.04 10^3uL L=0.00 H=0.10 39796-9 LOINC #IM GRANS 0.0 10^3uL L=0.0 H=7.0 57769-4 LOINC %IM GRANS 0.2 % L=0.0 H=5.0 18732-9 LOINC %NRB 0.0 L=0.0 H=0.2 73602-5 LOINC #NRB 0.000 L=0.000 H=0.012 56435-2 LOINC MANUAL DIFF NOT INDICATED RBC MORPH NOT INDICATED D DIMER - Collect Date/Time: 06/16/2025 11:47 [facility] ID: [id number] [address] [place] [address], [phone] LOINC: Test Value Unit Reference Range Code Code System Flag DDIMER 0.49 mg/L FEU L=0.00 H=0.50 PRO BNP - Collect Date/Time: 06/16/2025 11:47 [facility] ID: [id number] [address] [place] [address], [phone] LOINC: 75253-5 Test Value Unit Reference Range Code Code System Flag Pro BNP2 36 pg/mL L=0 H=900 06407-1 LOINC 4 PLEX RESPIRATORY COVID FLU RSV PCR - Collect Date/Time: 06/16/2025 11:41 [facility] ID: [id number] [address] [place] [address], [phone] LOINC: 63331-1 Test Value Unit Reference Range Code Code System Flag SARS CoV2 PCR NEGATIVE 06699-3 LOINC FLU A PCR NEGATIVE FLU B PCR NEGATIVE RSV PCR NEGATIVE SEND TO [facility]? YES CHEST 1V - Completed: 2024 11:28 LOINC: \TM00\\12PI\\DRAo\\BM09\ \MRHo\ [address] [address] ---------NAME--------- NUMBER SEX AGE ADMIT DISC. XRAY# F/C TYPE ARTIE HUSSEIN [id number] F 60 06/16/25 13038 MB3 E.R. DATE OF : 1965 M/R# [id number] PH#: [phone] ED-33 \MRx\ LOCATION: TRANSCRIBED: 06/16/25 11:30 CHEST 1V 81176 COMPLETED:06/16/25 11:28 JDF 34406 Shortness of breath PHYSICIAN: NEREIDA PHI R A D I O L O G Y R E P O R T CHEST RADIOGRAPH Indication: Shortness of breath Technique: Single frontal view of the chest was obtained COMPARISON: CHEST 1V on DOS: 05/23/25, CHEST 2V on DOS: 04/11/25, CT CHEST CA SCREEN on DOS: 07/20/24, CHEST 1V on DOS: 06/08/24, CHEST 2V on DOS: 03/15/24 FINDINGS: Lines and Tubes: None Lungs: Congestion Pleura: No effusion. No pneumothorax. Cardiomediastinal contours: Unremarkable Bones: Unremarkable IMPRESSION: Pulmonary vascular congestion. 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 \ITLo\ \UNDo\ \UNDx\ \ITLx\ Reviewed and Electronically Signed by: Mike Winter MD Signed Date: 06/16/25 11:30 Social History Type Status Start Date End Date Code Code Syst em Smoking History Current every day smoker [id number] SNOMED CT Sex Female Medications Medication Start Date End Date Route Frequency Dose Code Code System Medication Instructions Home Meds Levothyroxine Sodium 112MCG Oral Tablet 08/19/2018 Unknown ORAL ONCE A DAY 112 MCG 965426 RxNorm TAKE 112 MCG ORAL ONCE A DAY Omeprazole 40MG Oral Capsule, Delayed Release 08/19/2018 Unknown ORAL ONCE A DAY 40 MILLIGRA MS 20020911 RxNorm TAKE 40 MILLIGRAM S ORAL ONCE A DAY predniSONE 10MG Oral Tablet 02/20/2023 Unknown ORAL DAILY WITH MEAL 20 MILLIGRA MS 997712 RxNorm TAKE 20 MILLIGRAM S ORAL DAILY WITH MEAL FOR 5 DAYS FOLLOWED BY 10 MG PO FAILY FOR 5 DAYS ARIPiprazole 15MG Oral Tablet 02/20/2023 Unknown ORAL ONCE A DAY 15 MILLIGRA MS 394809 RxNorm TAKE 15 MILLIGRAM S ORAL ONCE A DAY FLUoxetine 20MG Oral Capsule 02/20/2023 Unknown ORAL ONCE A DAY 20 MILLIGRA MS 201381 RxNorm TAKE 20 MILLIGRAM S ORAL ONCE A DAY Famotidine 40MG Oral Tablet 02/20/2023 Unknown ORAL AT BEDTIME 40 MILLIGRA MS 633099 RxNorm TAKE 40 MILLIGRAM S ORAL AT BEDTIME Fludrocortisone Acetate 0.1MG Oral Tablet 02/20/2023 Unknown ORAL ONCE A DAY 0.1 MILLIGRA MS 642011 RxNorm TAKE 0.1 MILLIGRAM S ORAL ONCE A DAY HYDROcodone bitartrate-aceta minophen 10MG-300MG Oral Tablet 02/20/2023 Unknown ORAL NEEDED EVERY 6 HOURS 1 TABLET 150648 RxNorm TAKE 1 TABLET ORAL NEEDED EVERY [...] Unknown INHALATION ONCE A DAY 1 unit(s) 7773038 RxNorm 1 EACH INHALATIO N ONCE A DAY Potassium Chloride 10MEQ Oral Capsule, Extended Release 02/20/2023 Unknown ORAL ONCE A DAY 10 MEQ 841673 RxNorm TAKE 10 MEQ ORAL ONCE A DAY Primidone 50MG Oral Tablet 02/20/2023 Unknown ORAL AT BEDTIME 125 MILLIGRA MS 448498 RxNorm TAKE 125 MILLIGRAM S ORAL AT BEDTIME Primidone 50MG Oral Tablet 02/20/2023 Unknown ORAL ONCE A DAY 200 MILLIGRA MS 959080 RxNorm TAKE 200 MILLIGRAM S ORAL ONCE A DAY Primidone 50MG Oral Tablet 02/20/2023 Unknown ORAL DAILY AT 1200 125 MILLIGRA MS 144657 RxNorm TAKE 125 MILLIGRAM S ORAL DAILY AT 1200 Symbicort 160/4.5 160MCG-4.5MCG/1 Actu Inhalation Aerosol Liquid 02/20/2023 Unknown INHALATION TWICE A DAY 2 unit(s) 3561211 RxNorm 2 EACH INHALATIO N TWICE A [...] Date Status Code Code System DIARRHEA active 88579016 SNOMED-CT CONTACT WITH AND (SUSPECTED) EXPOSURE TO COVID-19 active 274856756 SNOMED- CT ENCOUNTER FOR SCREENING FOR COVID-19 active 703304811 SNOMED-CT Allergies and Adverse Reactions Allergy Substance Reaction Severity Start Date Concern Status Code Code System SULFA (sulfonamide) FOOT WENT TO SLEEP (SNOMED-CT: null) Moderate Active 66669250 SNOMED-CT BIAXIN ANGIOEDEMA (SNOMED-CT: null) Moderate Active 464114 RxNorm PENICILLIN ANGOIEDEMA (SNOMED-CT: null) Moderate Active Plan of Treatment Hai Established Patient 026 US Echo With Color (53221) 07/12/2025 CT Chest CA Screen (29002) 07/21/2025 Encounters Encounter Diagnosis Start Date Code Code Sys tem Unspecified systolic (congestive) heart failure 2024 SNOMED-CT Personal Care Team Section Performer Name Performer Role Active Date Inactive GLADYS Church PCP - Primary care physician 2021-03-02 2022-04-01 SANDRA GONZALEZ PCP - Primary care physician 2022-04-01 Imaging Narrative Notes [facility] 06/16/2025 11:32 [facility] [address] [place] [address] ---------NAME--------- NUMBER SEX AGE ADMIT DISC. XRAY# F/C TYPE ARTIE HUSSEIN [id number] F 60 06/16/25 51168 MB3 E.R. DATE OF : 1965 M/R# [id number] #: [phone] ED-33 LOCATION: TRANSCRIBED: 06/16/25 11:30 CHEST 1V 37690 COMPLETED:06/16/25 11:28 JDF 02037 Shortness of breath PHYSICIAN: NEREIDA PHI RADIOLOGY REPORT CHEST RADIOGRAPH Indication: Shortness of breath Technique: Single frontal view of the chest was obtained COMPARISON: CHEST 1V on DOS: 05/23/25, CHEST 2V on DOS: 04/11/25, CT CHEST CA SCREEN on DOS: 07/20/24, CHEST 1V on DOS: 06/08/24, CHEST 2V on DOS: 03/15/24 FINDINGS: Lines and Tubes: None Lungs: Congestion Pleura: No effusion. No pneumothorax. Cardiomediastinal contours: Unremarkable Bones: Unremarkable IMPRESSION: Pulmonary vascular congestion. 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
--- OUTSIDE RECORDS SUMMARY | 2025-06-28 17:45 | XMS_ITS | Data Portability ---
Author Organization [facility], [address] [facility] ([place]) Address [address] 4th [place] [address] Care Team Providers Care Server Administrator Name Role Phone BURAK ANGEL Primary Care Provider [phone] SANDRA GONZALEZ Primary Care Provider SANDRA GONZALEZ Referring Provider [phone] JUAN DAWSON Vascular Surgeon [phone] Assessment Encounter Date Assessment Date Assessment LastModified by Organization Details LastModified Time 11/29/2024 11/29/2024 Findings on history and examination were discussed with the patient. Her ambulatory difficulty is not related to low circulation but rather to her significant orthopedic and breathing issues. She does not demonstrate any sign of ischemia of her feet. She does have femoral pulses. Even if there was some iliac stenosis, I do not think that intervention would improve her walking ability because of the orthopedic problem. I am happy to see her again if anything deteriorates in this regard but would probably not recommend any vascular intervention unless she developed ischemic symptoms of the legs or feet. [email or web address] Not available 12/05/2024 21:22:13 Plan of Treatment Reminders Order Date Submit Date Provider Last Modified By Organization Details Last Modified Time Details Appointments [place] t Visit 10.NEW 2025 09:20A M Dr. Joe Atkinson Not available Not available Not available Lab None record ed. Referral None record ed. Procedures None record ed. Surgeries None record ed. Imaging None record ed. Medication Orders None record ed. Patient TargetsNo targets recorded. Patient InstructionsNo instructions recorded. Reason for Referral None Reported. Results Created Date Observation Date Name Description Value Unit Range Abnormal Flag Note LastModifiedBy Organization Detail LastModifiedTime 11/29/19 25 07/03/2022 imagi ng/di agnos tic resul t No observ ation record ed. [email or web address] Not Available 06:17:34 02/04/20 25 02/13/2020 imagi ng/di agnos tic resul t No observ ation record ed. [email or web address] Not Available 0 02/03/2025 20:51:41 02/04/20 25 02/13/2020 imagi ng/di agnos tic resul t No observ ation record ed. [email or web address] Not Available 0 02/03/2025 20:51:42 02/04/20 25 06/26/2020 imagi ng/di agnos tic resul t No observ ation record ed. [email or web address] Not Available 0 02/03/2025 20:51:43 Result Notes None recorded. 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 2024 Jolene steinberg, [facility] 5 10:56:31 Chronic congestive heart failure 82242188 Active 2024 Jolene Taylor null, [facility] 5 10:56:52 Anxiety 94174916 Active 2024 Jolene Taylor null, [facility] 5 11:04:01 Arthritis 1624842 Active 2024 Jolene Taylor null, [facility] 5 11:04:10 Depressive disorder 78770788 Active 2024 Jolene Taylor null, [facility] 5 11:04:39 Vitamin D deficiency 31330172 Active 2024 Jolene Taylor null, [facility] 5 11:04:52 Disorder of thyroid gland 61170415 Active 2024 Jolene steinberg [facility] 5 11:05:05 Problem Notes None recorded. Procedures Surgical History Date Name Laterality Status Provider Name and Address Organization Details Recorded Time Appendectomy completed Not Available Health Note 11/22/2024 10:53:55 Colonoscopy with biopsy completed Not Available Health Note 11/22/2024 10:53:55 Removal of gallbladder completed Not Available Health Note 11/22/2024 10:53:55 ligation of fallopian tube completed Jolene Calixiveth [facility] 11/29/2024 10:57:53 Imaging Results None recorded. Procedure Notes None recorded. Medical Equipment None Reported. Allergies Allergen ID Allergen Name Allergen Category Reaction Reaction Severity Criticality Documentation Date Start Date Code Code System Note Provider Name and Address Organization Details Recorded Time 6631191 Biaxin medicatio n Not available Not available Not available 09/02/2023200872 9 RxNorm React ion: Arrhy thmia ; Rash; Short ness of breat h; Synco pe; Not Available [facility] 4 04:35:41 297012 sulfameth oxazole / trimethop rim medicatio n Not available Not available Not available 08/31/20232012 85905 RxNorm Comme nt: Annot ation s: GRUND Y, BRAND ON 2012 12:13 PM CAUSE D NUMBN ESS AND TINGL ING; ; Not Available [facility] 4 21:56:22 Medications Name Sig Start Date Stop Date Status Note LastModified by Organization Details LastModified Time hydrocortiso ne 5 mg tablet Take 1 tablet as needed by oral route. active Not Available Not Available Not Available primidone 50 mg tablet Take 4 tablets every day by oral route. active Not Available Not Available No t Available clonazepam 0.5 mg tablet Take 1 tablet 3 times a day by oral route. active Not Available Not Available No t Available hydrocodone 7.5 mg-acetamino phen 325 mg tablet Take 1 tablet every 6 hours by oral route. active Not Available Not Available Not Available levothyroxin e 125 mcg tablet Take 1 tablet every day by oral route. active Not Available Not Available No t Available omeprazole 20 mg capsule,elyse yed release Take 1 capsule every day by oral route. active Not Available Not Available No t Available paroxetine 40 mg tablet Take 1 tablet every day by oral route. active Not Available Not Available No t Available fludrocortis one 0.1 mg tablet Take 1 tablet every day by oral route. active Not Available Not Available No t Available Solu-Cortef 100 mg solution for injection Take as needed by injection route. active Not Available Not Available No t Available Abilify 15 mg tablet Take 1 tablet every day by oral route. active Not Available Not Available No t Available tizanidine 4 mg capsule Take 2 capsules twice a day by oral route as needed. active Not Available Not Available No t Available B Complex take as directed active Not Available Not Available No t Available Calcium 600 + Minerals 600 mg (as carbonate)-2 00 unit tablet Take 2 tablets every day by oral route. active Not Available Not Available No t Available Vitamin D3 50 mcg (2,000 unit) capsule Take 1 capsule every day by oral route. active Not Available Not Available No t Available ipratropium 0.5 mg-albuterol 2.5 mg/2.5 mL solution for nebulization Inhale 1 mL 4 times a day by inhalation route. active Not Available Not Available No t Available Breztri Aerosphere 160 mcg-9mcg-4.8 mcg/actuatio n HFA aerosol inhaler Inhale 2 puffs twice a day by inhalation route. active Not Available Not Available No t Available dexamethason e sodium phosphate (PF) 4 mg/mL injection solution Take 4 mg as needed by injection route as needed. active Not Available Not Available No t Available Vitals Date Recorded Body weight Heart rate Respiratory rate Oxygen saturation Inhaled oxygen flow rate Systolic And Diastolic Provider Name and Address Organization Details Last Updated DateTime 5 46269.5 5 g 97 /min 18 /min 95 % 2.5 L/min 142/70 mm[Hg] Jolene Taylor [facility] 5 10:54:58 Social History Question Answer Notes LastModified by Organizat ion Details LastModified Time Tobacco Smoking Status Former Smoker Not Available Health Note 11/22/2024 10:53:55 Do You Have An Advance Directive? Yes [email or web address] Information not available 11/22/2024 What Is Your Level Of Caffeine Consumption? Occasional [email or web address] Information not available 11/22/2024 What Is Your Code Status? DNR [email or web address] Information not available 11/22/2024 How Many Times Per Week Do You Exercise? Less Than 1 Time Per Week [email or web address] Information not available 11/22/2024 When Did You Quit Smoking? 1-5yearssincel astbrianette [email or web address] Information not available 11/22/2024 How Long Have You Smoked? 45 Years [email or web address] Information not available 11/29/2024 When Did You Quit Smoking? January 2023 [email or web address] Information not available 11/29/2024 What Was The Date Of Your Most Recent Tobacco Screening? 11/29/2024 [email or web address] Information not available 11/22/2024 What Is Your Relationship Status? Single [email or web address] Information not available 11/22/2024 Sex: Unknown Functional Status Question Answer Note LastModified by Organizat ion Details LastModified Time Do you use any illicit or recreational drugs? No [email or web address] Information not available 11/22/2024 Do you or have you ever used any other forms of tobacco or nicotine? No [email or web address] Information not available 11/22/2024 What is your level of alcohol consumption? None [email or web address] Information not available 11/22/2024 Are you currently employed? No [email or web address] Information not available 11/22/2024 What is your occupation? Disabled [email or web address] Information not available 11/22/2024 What is your exercise level? None [email or web address] Information not available 11/22/2024 Mental Status None recorded. Family History Relationship Description Onset Age of this Age Resolved Age Notes LastModified by Organization Details LastModified Time Maternal Grandmother Attention deficit hyperactivit y disorder [email or web address] Not available 11/22 10:53:54 Maternal Grandmother Arthritis [email or web address] Not available 11/02 10:53:54 Maternal Grandmother Chronic obstructive pulmonary disease [email or web address] Not available 2024 10:53:54 Maternal Grandmother Disorder of thyroid gland [email or web address] Not available 2024 10:53:54 Father Arthritis [email or web address] Not available 11/22/2024 10:53:54 Father Heart disease [email or web address] Not available 2024 10:53:54 Father Cerebrovascu lar accident [email or web address] Not available 10:53:54 Father Disorder of thyroid gland [email or web address] Not available 2024 10:53:54 Daughter Asthma [email or web address] Not available 11/22/2024 10:53:54 Daughter Disorder of thyroid gland [email or web address] Not available 2024 10:53:54 Mother Chronic obstructive pulmonary disease [email or web address] Not available 2024 10:53:54 Mother Disorder of thyroid gland [email or web address] Not available 2024 10:53:54 Paternal Grandmother Heart disease [email or web address] Not available 2024 10:53:54 Brother Disorder of thyroid gland [email or web address] Not available 2024 10:53:54 Medical History Condition Response Diabetes N Anxiety Disorder Y Bleeding Disorder N Attention-deficit Hyperactivity Disorder N High Blood Pressure N Arthritis Y Hyperlipidemia N Cancer N Stroke N Thyroid Problems Y Asthma N Depression Y COPD Y Anemia N Seizures N Heart Disease Y Fibromyalgia N Osteoporosis N Kidney Disease N Gynecological HistoryNo gynecological history recorded. Obstetrics History GPAL:G 0 P 0 0 0 0 Past Encounters Encounter ID Performer Location Encounter Start Date Encounter Closed Date Diagnosis/Indication Diagnosis SNOMED-CT Code Diagnosis ICD10 Code Diagnosis IMO Codes Diagnosis Note [id number] Juan Dawson MD [address] [facility] ([place]) [address] [place] [phone] 11/29/2024 10:37:41 11/29/2024 14:20:02 Chronic congestive heart failure 99476875 I50.9 6629966419 Chronic ob structive pulmonary disease 56943542 J44.9 170884244 Arthritis 2761553 M19.90 10432 Health Concerns Section Related Observation LastModified by Organization Detai ls LastModified Time None Recorded Concern Status LastModified by Organization Details LastModified Time None Recorded Advance Directives Directive Y: Payers Insurance Date Sequence Insurance Name Policy Number Policy Erickson Covered Member ID Erickson Member ID Guarantor Name 12/06/[address] [facility] (MEDICARE REPLACEMENT/AD VANTAGE - PPO) [id number] Margarita Woods [id number] Margarita Woods 11/29/2024 1 [employer] [facility] - PREMIER PLAN - DUAL (MEDICARE - MEDICAID REPLACEMENT HMO) [id number] Margarita Woods [id number] Margarita Woods Notes Date Note Type Note Provider Name and Address Organization Details Recorded Time 11/29/2024 text/html 59-year-old female is seen in evaluation of her arterial circulation and ambulatory difficulty. Patient describes severe pain in her right hip, back, and knee. She feels like her hip limits her walking and she has constant chronic pain. Her balance is poor with this. For the last 2 years she uses either a walker or a cane and today came in a wheelchair with her friend. Patient is dependent on oxygen since she had a recent episode of pneumonia. This also causes her to limit her activity. To her knowledge, she has not had any known blood clots nor has she had any sores of the feet or legs. Patient states that she has had her right hip work done 3 times and she takes hydrocodone for pain daily. Patient has the risk factor of previous smoking but is not on any hypertensives and is not sure of her lipid status. She is not diabetic. She quit smoking in January 2023 after she suffered an adrenal gland bleed and was in the intensive care unit at [facility] for quite a long time. In total she smoked for 41 years at 2 packs/day prior to quitting. Socially, she is not . She is 2 para 2. Currently she lives with a roommate and today she was brought here by a friend. Patient is disabled. Juan Dawson MD [facility], [address], [facility] 12/05/2024 21:50:51 OBGyn Episode No OBEpisode recorded.
--- OUTSIDE RECORDS SUMMARY | 2025-06-28 17:45 | XMS_ITS | Encounter Summary ---
Author Organization [facility] Address [address] [place] [address] Care Team Providers Care Wafer Substrate Tester Name Role Phone Ivan Rubin MD Primary Care Provider [phone] Kevin Limon MD Primary Care Provider [phone] Encounter Details Date Type Department Care Team (Late st Contact Info) Description 01/08/2019 Abstract SFL CONVERSION [address] [place] [address] , Generic Conversion, Social History Tobacco Use Types Packs/Day Years Used Date Smoking Tobacco: Never Assessed Comments Unknown Sex and Gender Information Value Date Recorded Sex Assigned at Not on file 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
--- OUTSIDE RECORDS SUMMARY | 2025-06-28 17:45 | XMS_ITS ---
Author Organization Unknown Address [address] [place] [phone] Phone Care Team Providers Care Planting Material Carrier Name Role Phone LU Abebe Attending Unavailable CARLOS Cifuentes Primary Unavailable Immunization Immunization Date Status Additional Notes Code Code System Influenza, split virus, trivalent, preservative 05/09/2013 Completed 141 CVX COVID-19, mRNA, LNP-S, PF, 3 0 mcg/0.3 mL dose 03/21/2021 Completed 208 CVX COVID-19, mRNA, LNP-S, PF, 3 0 mcg/0.3 mL dose 04/11/2021 Completed 208 CVX Results CBC W/ DIFF - Collect Date/T marga: 06/08/2024 11:04 [facility] ID: [id number] [address] [place] [address], [phone] LOINC: 16500-1 Test Value Unit Reference Range Code Code System Flag WBC 7.5 10^3uL L=4.8 H=10.8 RBC 4.08 10^6uL L=4.20 H=5.40 L HEMOGLOBIN 12.7 g/dL L=12.0 H=16.0 718-7 LOINC HEMATOCRIT 41.0 VOL% L=37.0 H=47.0 4544-3 LOINC MCV 100.5 fL L=81.0 H=99.0 H MCH 31.1 pg L=27.0 H=32.0 MCHC 31.0 g/dL L=32.0 H=36.0 L PLATELETS 315 10^3uL L=100 H=400 97651-1 LOINC RDW 13.4 % L=11.7 H=15.5 %GRAN 71.1 % L=40.0 H=70.0 09117-5 LOINC H %LYMPH 22.8 % L=20.0 H=45.0 736-9 LOINC %MONO 3.6 % L=2.0 H=10.0 88006-0 LOINC %EOS 1.5 % L=0.0 H=6.0 713-8 LOINC %BASO 0.7 % L=0.0 H=3.0 706-2 LOINC #NEUT 5.3 10^3uL L=1.9 H=7.6 83252-6 LOINC #LYMPH 1.7 10^3uL L=0.9 H=4.9 19604-3 LOINC #MONO 0.3 10^3uL L=0.1 H=0.9 67429-7 LOINC #EOS 0.1 10^3uL L=0.0 H=0.6 712-0 LOINC #BASO 0.05 10^3uL L=0.00 H=0.10 16954-4 LOINC #IM GRANS 0.0 10^3uL L=0.0 H=7.0 79784-3 LOINC %IM GRANS 0.3 % L=0.0 H=5.0 34537-6 LOINC %NRB 0.0 L=0.0 H=0.2 30484-3 LOINC #NRB 0.000 L=0.000 H=0.012 74386-6 LOINC MANUAL DIFF NOT INDICATED RBC MORPH NOT INDICATED COMPREHENSIVE METABOLIC PANE L - Collect Date/Time: 06/08/2024 11:04 [facility] ID: [id number] [address] [place], [place], [id number] LOINC: 27851-6 Test Value Unit Reference Range Code Code System Flag FASTING UNKNOWN BUN 9 mg/dL L=7 H=20 3094-0 LOINC CREATININE 1.20 mg/dL L=0.52 H=1.04 2160-0 LOINC H GLUCOSE 92 mg/dL L=74 H=106 2345-7 LOINC SODIUM 138 mmol/L L=132 H=144 2951-2 LOINC POTASSIUM 4.8 mmol/L L=3.5 H=5.1 2823-3 LOINC CHLORIDE 95 mmol/L L=98 H=107 2075-0 LOINC L CO2 37.0 mmol/L L=22.0 H=30.0 2028-9 LOINC H ANION GAP 11 L=10 H=20 11075-1 LOINC OSMOLALITY 284 mOs/kG L=280 H=296 61063-1 LOINC BUN/CREAT 7.5 3097-3 LOINC CALCIUM 8.5 mg/dL L=8.3 H=10.5 26584-9 LOINC AST 24 U/L L=15 H=46 1920-8 LOINC ALT 17 U/L L=9 H=72 1742-6 LOINC ALKALINE PHOS 65 U/L L=38 H=126 6768-6 LOINC TOTAL BILI 0.4 mg/dL L=0.2 H=1.3 1975-2 LOINC ALBUMIN 4.0 G/dL L=3.5 H=5.0 1751-7 LOINC TOTAL PROTEIN 7.1 g/L L=6.3 H=8.2 2885-2 LOINC A/G RATIO 1.3 72031-1 LOINC AGE 59 35199-6 LOINC eGFR NON-AFR 49 ml/min eGFR AFR AMER 59 ml/min PRO BNP - Collect Date/Time: 06/08/2024 11:04 [facility] ID: [id number] [address] [place], [place], [id number] LOINC: 26924-3 Test Value Unit Reference Range Code Code System Flag Pro BNP2 65 pg/mL L=0 H=900 46938-2 LOINC CHEST 1V - Completed: 2023 11:18 LOINC: EXAM DESCRIPTION: CHEST 1V REASON FOR STUDY: cough/ short of breath/ former smoker Duration: 1 week Smoking History: TECHNIQUE: 1 radiographic view(s) of the chest. COMPARISON: 03/15/2020 FINDINGS: LUNGS: No pneumonic consolidation or pulmonary edema seen.. No pleural effusion or pneumothorax identified. HEART/MEDIASTINUM: Normal cardiomediastinal contours. LINES/TUBES: None. BONES: No acute displaced fracture or aggressive bone lesion is seen. IMPRESSION: No acute cardiopulmonary findings. THIS IS AN ELECTRONICALLY VERIFIED FINAL REPORT 06/08/2024 11:53 AM - Electronically signed by Darrin Canales M.D. MZ: MZ Report ID: [id number] Reading Location: [place] [address] Social History Type Status Start Date End Date Code Code Syst em Smoking History Current every day smoker 345443881 SNOMED CT Sex Female Medications Medication Start Date End Date Route Frequency Dose Code Code System Medication Instructions Home Meds Levothyroxine Sodium 112MCG Oral Tablet 08/19/2018 Unknown ORAL ONCE A DAY 112 MCG 132696 RxNorm TAKE 112 MCG ORAL ONCE A DAY Omeprazole 40MG Oral Capsule, Delayed Release 08/19/2018 Unknown ORAL ONCE A DAY 40 MILLIGRA MS 634170 RxNorm TAKE 40 MILLIGRAM S ORAL ONCE A DAY predniSONE 10MG Oral Tablet 02/20/2023 Unknown ORAL DAILY WITH MEAL 20 MILLIGRA MS 544359 RxNorm TAKE 20 MILLIGRAM S ORAL DAILY WITH MEAL FOR 5 DAYS FOLLOWED BY 10 MG PO FAILY FOR 5 DAYS ARIPiprazole 15MG Oral Tablet 02/20/2023 Unknown ORAL ONCE A DAY 15 MILLIGRA MS 087791 RxNorm TAKE 15 MILLIGRAM S ORAL ONCE A DAY FLUoxetine 20MG Oral Capsule 02/20/2023 Unknown ORAL ONCE A DAY 20 MILLIGRA MS 873788 RxNorm TAKE 20 MILLIGRAM S ORAL ONCE A DAY Famotidine 40MG Oral Tablet 02/20/2023 Unknown ORAL AT BEDTIME 40 MILLIGRA MS 566891 RxNorm TAKE 40 MILLIGRAM S ORAL AT BEDTIME Fludrocortisone Acetate 0.1MG Oral Tablet 02/20/2023 Unknown ORAL ONCE A DAY 0.1 MILLIGRA MS 311355 RxNorm TAKE 0.1 MILLIGRAM S ORAL ONCE A DAY HYDROcodone bitartrate-aceta minophen 10MG-300MG Oral Tablet 02/20/2023 Unknown ORAL NEEDED EVERY 6 HOURS 1 TABLET 787942 RxNorm TAKE 1 TABLET ORAL NEEDED EVERY [...] Unknown INHALATION ONCE A DAY 1 unit(s) 7181510 RxNorm 1 EACH INHALATIO N ONCE A DAY Potassium Chloride 10MEQ Oral Capsule, Extended Release 02/20/2023 Unknown ORAL ONCE A DAY 10 MEQ 109321 RxNorm TAKE 10 MEQ ORAL ONCE A DAY Primidone 50MG Oral Tablet 02/20/2023 Unknown ORAL AT BEDTIME 125 MILLIGRA MS 728614 RxNorm TAKE 125 MILLIGRAM S ORAL AT BEDTIME Primidone 50MG Oral Tablet 02/20/2023 Unknown ORAL ONCE A DAY 200 MILLIGRA MS RxNorm TAKE 200 MILLIGRAM S ORAL ONCE A DAY Primidone 50MG Oral Tablet 02/20/2023 Unknown ORAL DAILY AT 1200 125 MILLIGRA MS RxNorm TAKE 125 MILLIGRAM S ORAL DAILY AT 1200 Symbicort 160/4.5 160MCG-4.5MCG/1 Actu Inhalation Aerosol Liquid 02/20/2023 Unknown INHALATION TWICE A DAY 2 unit(s) 7228371 RxNorm 2 EACH INHALATIO N TWICE A [...] Date Status Code Code System DIARRHEA active 64405287 SNOMED-CT CONTACT WITH AND (SUSPECTED) EXPOSURE TO COVID-19 active 152901183 SNOMED- CT ENCOUNTER FOR SCREENING FOR COVID-19 active 172850267 SNOMED-CT Allergies and Adverse Reactions Allergy Substance Reaction Severity Start Date Concern Status Code Code System SULFA (sulfonamide) FOOT WENT TO SLEEP (SNOMED-CT: null) Moderate Active 25349581 SNOMED-CT BIAXIN ANGIOEDEMA (SNOMED-CT: null) Moderate Active 20360911 RxNorm PENICILLIN ANGOIEDEMA (SNOMED-CT: null) Moderate Active Plan of Treatment Hai Established Patient 026 US Echo With Color (00970) 07/12/2025 CT Chest CA Screen (01638) 07/21/2025 Encounters Encounter Diagnosis Start Date Code Code Sys tem Chronic obstructive pulmonar y disease with (acute) exacerbation 06/08/2024 SNOMED-CT Personal Care Team Section Performer Name Performer Role Active Date Inactive GLADYS Church PCP - Primary care physician 2021-03-02 2022-04-01 SANDRA GONZALEZ PCP - Primary care physician 2022-04-01 Imaging Narrative Notes
--- OUTSIDE RECORDS SUMMARY | 2025-06-28 17:45 | XMS_ITS ---
Author Organization Unknown Address [address] [place] [address] [phone] Phone Care Team Providers Care Rn L And D Name Role Phone WARRENKelton LUIS ARMANDO Attending Unavailable CARLOS Cifuentes Primary Unavailable Immunization Immunization Date Status Additional Notes Code Code System Influenza, split virus, trivalent, preservative 05/09/2013 Completed 141 CVX COVID-19, mRNA, LNP-S, PF, 3 0 mcg/0.3 mL dose 03/21/2021 Completed 208 CVX COVID-19, mRNA, LNP-S, PF, 3 0 mcg/0.3 mL dose 04/11/2021 Completed 208 CVX Results BASIC METABOLIC PANEL - Kate ect Date/Time: 05/22/2025 08:54 [facility] ID: [id number] [place] [address], [phone] LOINC: 50967-1 Test Value Unit Reference Range Code Code System Flag FASTING NO BUN 23 mg/dL L=7 H=20 3094-0 LOINC H CREATININE 1.40 mg/dL L=0.52 H=1.04 2160-0 LOINC H AGE 60 63321-5 LOINC eGFR 43 GLUCOSE 110 mg/dL L=74 H=106 2345-7 LOINC H CALCIUM 9.2 mg/dL L=8.3 H=10.5 21593-1 LOINC SODIUM 136 mmol/L L=132 H=144 2951-2 LOINC POTASSIUM 5.5 mmol/L L=3.5 H=5.1 2823-3 LOINC H CHLORIDE 93 mmol/L L=98 H=107 2075-0 LOINC L CO2 41.0 mmol/L L=22.0 H=30.0 2028-9 [facility] L=10 H=20 90580-6 LOINC L OSMOLALITY 286 mOs/kG L=280 H=296 07294-2 LOINC BUN/CREAT 16.4 3097-3 LOINC Social History Type Status Start Date End Date Code Code Syst em Smoking History Current every day smoker 004345233 SNOMED CT Sex Female Medications Medication Start Date End Date Route Frequency Dose Code Code System Medication Instructions Home Meds Levothyroxine Sodium 112MCG Oral Tablet 08/19/2018 Unknown ORAL ONCE A DAY 112 MCG 608350 RxNorm TAKE 112 MCG ORAL ONCE A DAY Omeprazole 40MG Oral Capsule, Delayed Release 08/19/2018 Unknown ORAL ONCE A DAY 40 MILLIGRA MS 192448 RxNorm TAKE 40 MILLIGRAM S ORAL ONCE A DAY predniSONE 10MG Oral Tablet 02/20/2023 Unknown ORAL DAILY WITH MEAL 20 MILLIGRA MS 315260 RxNorm TAKE 20 MILLIGRAM S ORAL DAILY WITH MEAL FOR 5 DAYS FOLLOWED BY 10 MG PO FAILY FOR 5 DAYS ARIPiprazole 15MG Oral Tablet 02/20/2023 Unknown ORAL ONCE A DAY 15 MILLIGRA MS 458617 RxNorm TAKE 15 MILLIGRAM S ORAL ONCE A DAY FLUoxetine 20MG Oral Capsule 02/20/2023 Unknown ORAL ONCE A DAY 20 MILLIGRA MS 522684 RxNorm TAKE 20 MILLIGRAM S ORAL ONCE A DAY Famotidine 40MG Oral Tablet 02/20/2023 Unknown ORAL AT BEDTIME 40 MILLIGRA MS 354311 RxNorm TAKE 40 MILLIGRAM S ORAL AT BEDTIME Fludrocortisone Acetate 0.1MG Oral Tablet 02/20/2023 Unknown ORAL ONCE A DAY 0.1 MILLIGRA MS 180756 RxNorm TAKE 0.1 MILLIGRAM S ORAL ONCE A DAY HYDROcodone bitartrate-aceta minophen 10MG-300MG Oral Tablet 02/20/2023 Unknown ORAL NEEDED EVERY 6 HOURS 1 TABLET 993589 RxNorm TAKE 1 TABLET ORAL NEEDED EVERY [...] Unknown INHALATION ONCE A DAY 1 unit(s) 5385073 RxNorm 1 EACH INHALATIO N ONCE A DAY Potassium Chloride 10MEQ Oral Capsule, Extended Release 02/20/2023 Unknown ORAL ONCE A DAY 10 MEQ 577771 RxNorm TAKE 10 MEQ ORAL ONCE A DAY Primidone 50MG Oral Tablet 02/20/2023 Unknown ORAL AT BEDTIME 125 MILLIGRA MS 391849 RxNorm TAKE 125 MILLIGRAM S ORAL AT BEDTIME Primidone 50MG Oral Tablet 02/20/2023 Unknown ORAL ONCE A DAY 200 MILLIGRA MS 117672 RxNorm TAKE 200 MILLIGRAM S ORAL ONCE A DAY Primidone 50MG Oral Tablet 02/20/2023 Unknown ORAL DAILY AT 1200 125 MILLIGRA MS 067161 RxNorm TAKE 125 MILLIGRAM S ORAL DAILY AT 1200 Symbicort 160/4.5 160MCG-4.5MCG/1 Actu Inhalation Aerosol Liquid 02/20/2023 Unknown INHALATION TWICE A DAY 2 unit(s) 1210513 RxNorm 2 EACH INHALATIO N TWICE A [...] Date Status Code Code System DIARRHEA active 44903833 SNOMED-CT CONTACT WITH AND (SUSPECTED) EXPOSURE TO COVID-19 active 710698788 SNOMED- CT ENCOUNTER FOR SCREENING FOR COVID-19 active 155885950 SNOMED-CT Allergies and Adverse Reactions Allergy Substance Reaction Severity Start Date Concern Status Code Code System SULFA (sulfonamide) FOOT WENT TO SLEEP (SNOMED-CT: null) Moderate Active 95727508 SNOMED-CT BIAXIN ANGIOEDEMA (SNOMED-CT: null) Moderate Active 552801 RxNorm PENICILLIN ANGOIEDEMA (SNOMED-CT: null) Moderate Active Plan of Treatment Abdulfattah Established Patient 026 US Echo With Color (75493) 07/12/2025 CT Chest CA Screen (78054) 07/21/2025 Encounters Encounter Diagnosis Start Date Code Code Sys tem Unspecified adverse effect o f drug or medicament, initial encounter 05/22/2025 SNOMED-CT Personal Care Team Section Performer Name Performer Role Active Date Inactive Da GLADYS Casiano PCP - Primary care physician 2021-03-02 2022-04-01 SANDRA GONZALEZ PCP - Primary care physician 2022-04-01
--- OUTSIDE RECORDS SUMMARY | 2025-06-28 17:45 | XMS_ITS ---
Author Organization Unknown Address [address] [place] [address] [phone] Phone Care Team Providers Care Wireless Sales Associate Name Role Phone EMMA BRISCOE Attending Unavailable CARLOS Cifuentes Primary Unavailable Immunization Immunization Date Status Additional Notes Code Code System Influenza, split virus, trivalent, preservative 05/09/2013 Completed 141 CVX COVID-19, mRNA, LNP-S, PF, 3 0 mcg/0.3 mL dose 03/21/2021 Completed 208 CVX COVID-19, mRNA, LNP-S, PF, 3 0 mcg/0.3 mL dose 04/11/2021 Completed 208 CVX Results CHEST 2V - Completed: 2024 08:53 LOINC: \TM00\\12PI\\DRAo\\BM09\ \MRHo\ [address] [address] ---------NAME--------- NUMBER SEX AGE ADMIT DISC. XRAY# F/C TYPE ARTIE HUSSEIN [id number] F 59 04/11/25 04/11/25 71825 MB3 O/P DATE OF : 1965 M/R# [id number] PH#: [phone] RM \MRHx\ LOCATION: TRANSCRIBED: 04/11/25 9:48 CHEST 2V 46786 COMPLETED:04/11/25 8:53 [place] [address] {REASON-CHEST: SHORTNESS OF BREATH PHYSICIAN: EMMA R A D I O L O G Y R E P O R T CHEST 2V CLINICAL HISTORY: SHORTNESS OF BREATH COMPARISON: CT CHEST CA SCREEN on DOS: 07/20/24, CHEST 1V on DOS: 06/08/24, CHEST 2V on DOS: 03/15/24, CHEST 2V on DOS: 01/18/24, CHEST 2V on DOS: 03/18/23 TECHNIQUE: Frontal and lateral view of the chest was obtained FINDINGS: Lines and Tubes: None Lungs: No focal consolidation. Pleura: No effusion. No pneumothorax. Cardiomediastinal contours: Unremarkable Bones: No acute osseous abnormality. IMPRESSION: No acute cardiopulmonary disease. 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\ \UNDo\ \UNDx\ \ITLx\ Reviewed and Electronically Signed by: García Barragan MD Signed Date: 04/11/25 09:48 Social History Type Status Start Date End Date Code Code Syst em Smoking History Current every day smoker 755780324 SNOMED CT Sex Female Medications Medication Start Date End Date Route Frequency Dose Code Code System Medication Instructions Home Meds Levothyroxine Sodium 112MCG Oral Tablet 08/19/2018 Unknown ORAL ONCE A DAY 112 MCG 343953 RxNorm TAKE 112 MCG ORAL ONCE A DAY Omeprazole 40MG Oral Capsule, Delayed Release 08/19/2018 Unknown ORAL ONCE A DAY 40 MILLIGRA MS 20020911 RxNorm TAKE 40 MILLIGRAM S ORAL ONCE A DAY predniSONE 10MG Oral Tablet 02/20/2023 Unknown ORAL DAILY WITH MEAL 20 MILLIGRA MS 19801105 RxNorm TAKE 20 MILLIGRAM S ORAL DAILY WITH MEAL FOR 5 DAYS FOLLOWED BY 10 MG PO FAILY FOR 5 DAYS ARIPiprazole 15MG Oral Tablet 02/20/2023 Unknown ORAL ONCE A DAY 15 MILLIGRA MS 005533 RxNorm TAKE 15 MILLIGRAM S ORAL ONCE A DAY FLUoxetine 20MG Oral Capsule 02/20/2023 Unknown ORAL ONCE A DAY 20 MILLIGRA MS 746905 RxNorm TAKE 20 MILLIGRAM S ORAL ONCE A DAY Famotidine 40MG Oral Tablet 02/20/2023 Unknown ORAL AT BEDTIME 40 MILLIGRA MS 337335 RxNorm TAKE 40 MILLIGRAM S ORAL AT BEDTIME Fludrocortisone Acetate 0.1MG Oral Tablet 02/20/2023 Unknown ORAL ONCE A DAY 0.1 MILLIGRA MS 314493 RxNorm TAKE 0.1 MILLIGRAM S ORAL ONCE A DAY HYDROcodone bitartrate-aceta minophen 10MG-300MG Oral Tablet 02/20/2023 Unknown ORAL NEEDED EVERY 6 HOURS 1 TABLET 880012 RxNorm TAKE 1 TABLET ORAL NEEDED EVERY [...] Unknown INHALATION ONCE A DAY 1 unit(s) 3356693 RxNorm 1 EACH INHALATIO N ONCE A DAY Potassium Chloride 10MEQ Oral Capsule, Extended Release 02/20/2023 Unknown ORAL ONCE A DAY 10 MEQ 257922 RxNorm TAKE 10 MEQ ORAL ONCE A DAY Primidone 50MG Oral Tablet 02/20/2023 Unknown ORAL AT BEDTIME 125 MILLIGRA MS RxNorm TAKE 125 MILLIGRAM S ORAL AT BEDTIME Primidone 50MG Oral Tablet 02/20/2023 Unknown ORAL ONCE A DAY 200 MILLIGRA MS 418242 RxNorm TAKE 200 MILLIGRAM S ORAL ONCE A DAY Primidone 50MG Oral Tablet 02/20/2023 Unknown ORAL DAILY AT 1200 125 MILLIGRA MS 742013 RxNorm TAKE 125 MILLIGRAM S ORAL DAILY AT 1200 Symbicort 160/4.5 160MCG-4.5MCG/1 Actu Inhalation Aerosol Liquid 02/20/2023 Unknown INHALATION TWICE A DAY 2 unit(s) 8326469 RxNorm 2 EACH INHALATIO N TWICE A [...] Date Status Code Code System DIARRHEA active 91641715 SNOMED-CT CONTACT WITH AND (SUSPECTED) EXPOSURE TO COVID-19 active 666048127 SNOMED- CT ENCOUNTER FOR SCREENING FOR COVID-19 active 175736408 SNOMED-CT Allergies and Adverse Reactions Allergy Substance Reaction Severity Start Date Concern Status Code Code System SULFA (sulfonamide) FOOT WENT TO SLEEP (SNOMED-CT: null) Moderate Active 00404581 SNOMED-CT BIAXIN ANGIOEDEMA (SNOMED-CT: null) Moderate Active 490826 RxNorm PENICILLIN ANGOIEDEMA (SNOMED-CT: null) Moderate Active Plan of Treatment Hai Established Patient 026 US Echo With Color (50396) 07/12/2025 CT Chest CA Screen (78661) 07/21/2025 Encounters Encounter Diagnosis Start Date Code Code Sys tem Dyspnea 04/11/2025 396200802 SNOMED-CT Personal Care Team Section Performer Name Performer Role Active Date Inactive GLADYS Church PCP - Primary care physician 2021-03-02 2022-04-01 SANDRA GONZALEZ PCP - Primary care physician 2022-04-01 Imaging Narrative Notes [facility] 04/11/2025 09:51 [place] [id number] [place] [address] ---------NAME--------- NUMBER SEX AGE ADMIT DISC. XRAY# F/C TYPE ARTIE HUSSEIN [id number] F 59 04/11/25 04/11/25 80500 MB3 O/P DATE OF : 1965 M/R# [id number] #: [id number] RM LOCATION: TRANSCRIBED: 04/11/25 9:48 CHEST 2V 21837 COMPLETED:04/11/25 8:53 92207 {REASON-CHEST: SHORTNESS OF BREATH PHYSICIAN: YVONNETTENERThais RADIOLOGY REPORT CHEST 2V CLINICAL HISTORY: SHORTNESS OF BREATH COMPARISON: CT CHEST CA SCREEN on DOS: 07/20/24, CHEST 1V on DOS: 06/08/24, CHEST 2V on DOS: 03/15/24, CHEST 2V on DOS: 01/18/24, CHEST 2V on DOS: 03/18/23 TECHNIQUE: Frontal and lateral view of the chest was obtained FINDINGS: Lines and Tubes: None Lungs: No focal consolidation. Pleura: No effusion. No pneumothorax. Cardiomediastinal contours: Unremarkable Bones: No acute osseous abnormality. IMPRESSION: No acute cardiopulmonary disease. 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
--- OUTSIDE RECORDS SUMMARY | 2025-06-28 17:45 | XMS_ITS ---
Author Organization Unknown Address [address] [place] [address] [phone] Phone Care Team Providers Care Conservator Artifacts Name Role Phone NEREIDA Orourke Attending Unavailable CARLOS Cifuentes Primary Unavailable Immunization Immunization Date Status Additional Notes Code Code System Influenza, split virus, trivalent, preservative 05/09/2013 Completed 141 CVX COVID-19, mRNA, LNP-S, PF, 3 0 mcg/0.3 mL dose 03/21/2021 Completed 208 CVX COVID-19, mRNA, LNP-S, PF, 3 0 mcg/0.3 mL dose 04/11/2021 Completed 208 CVX Results CBC W/ DIFF - Collect Date/T marga: 05/23/2025 15:38 [facility] ID: [id number] [address] [place] [address], [phone] LOINC: 63235-8 Test Value Unit Reference Range Code Code System Flag WBC 8.3 10^3uL L=4.0 H=10.5 RBC 3.26 10^6uL L=4.20 H=5.40 L HEMOGLOBIN 10.6 g/dL L=12.0 H=16.0 718-7 LOINC L HEMATOCRIT 33.7 VOL% L=37.0 H=47.0 4544-3 LOINC L MCV 103.4 fL L=81.0 H=99.0 H MCH 32.5 pg L=27.0 H=32.0 H MCHC 31.5 g/dL L=32.0 H=36.0 L PLATELETS 302 10^3uL L=100 H=400 64296-4 LOINC RDW 15.6 % L=11.7 H=15.5 H %GRAN 68.6 % L=40.0 H=70.0 06261-2 LOINC %LYMPH 24.6 % L=20.0 H=45.0 736-9 LOINC %MONO 4.4 % L=2.0 H=10.0 39201-4 LOINC %EOS 1.6 % L=0.0 H=6.0 713-8 LOINC %BASO 0.4 % L=0.0 H=3.0 706-2 LOINC #NEUT 5.7 10^3uL L=1.9 H=7.6 01493-0 LOINC #LYMPH 2.0 10^3uL L=0.9 H=4.9 80451-5 LOINC #MONO 0.4 10^3uL L=0.1 H=0.9 03201-5 LOINC #EOS 0.1 10^3uL L=0.0 H=0.6 712-0 LOINC #BASO 0.03 10^3uL L=0.00 H=0.10 66847-0 LOINC #IM GRANS 0.0 10^3uL L=0.0 H=7.0 66614-1 LOINC %IM GRANS 0.4 % L=0.0 H=5.0 36348-8 LOINC %NRB 0.0 L=0.0 H=0.2 13796-4 LOINC #NRB 0.000 L=0.000 H=0.012 38378-6 LOINC MANUAL DIFF NOT INDICATED RBC MORPH NOT INDICATED COMPREHENSIVE METABOLIC PANE L - Collect Date/Time: 05/23/2025 15:38 [facility] ID: [id number] [address] [place], [place], [phone] LOINC: 58104-4 Test Value Unit Reference Range Code Code System Flag FASTING UNKNOWN BUN 21 mg/dL L=7 H=20 3094-0 LOINC H CREATININE 1.30 mg/dL L=0.52 H=1.04 2160-0 LOINC H AGE 60 16335-1 LOINC eGFR 46 GLUCOSE 93 mg/dL L=74 H=106 2345-7 LOINC SODIUM 134 mmol/L L=132 H=144 2951-2 LOINC POTASSIUM 4.3 mmol/L L=3.5 H=5.1 2823-3 LOINC CHLORIDE 88 mmol/L L=98 H=107 2075-0 LOINC L CO2 47.0 mmol/L L=22.0 H=30.0 2028-9 LOINC H ANION GAP 3 L=10 H=20 09447-0 LOINC L OSMOLALITY 281 mOs/kG L=280 H=296 17266-7 LOINC BUN/CREAT 16.2 3097-3 LOINC CALCIUM 9.3 mg/dL L=8.3 H=10.5 31321-1 LOINC AST 34 U/L L=15 H=46 1920-8 LOINC ALT 23 U/L L=9 H=72 1742-6 LOINC ALKALINE PHOS 60 U/L L=38 H=126 6768-6 LOINC TOTAL BILI 0.2 mg/dL L=0.2 H=1.3 1975-2 LOINC ALBUMIN 4.2 G/dL L=3.5 H=5.0 1751-7 LOINC TOTAL PROTEIN 6.9 g/L L=6.3 H=8.2 2885-2 LOINC A/G RATIO 1.6 51392-5 LOINC TROPONIN LEVEL - Collect Alex e/Time: 05/23/2025 15:38 [facility] ID: [id number] [place] [address], [phone] LOINC: 59489-2 Test Value Unit Reference Range Code Code System Flag TROPONIN < 0.012 ng/mL L=0.000 H=0.033 36785-8 LOINC CHEST 1V - Completed: 2024 16:41 LOINC: \TM00\\12PI\\DRAo\\BM09\ \MRHo\ [address] [address] ---------NAME--------- NUMBER SEX AGE ADMIT DISC. XRAY# F/C TYPE [place] HADLEY KEENAN [id number] F 60 05/23/25 73769 MB3 Iván DATE OF : 1965 M/R# [id number] #: [id number] ED-30 \MRx\ LOCATION: TRANSCRIBED: 05/23/25 15:44 CHEST 1V 57806 COMPLETED: 78470 Chest Pain PHYSICIAN: NEREIDA PHI R A D I O L O G Y R E P O R T EXAM: CHEST 1V HISTORY: Chest Pain, shortness of breath, history of COPD COMPARISON: CHEST 1V on DOS: 06/08/24, chest x-ray dated 01/18/2024, chest x-ray dated 04/11/2025, chest CT dated 07/20/2024 TECHNIQUE: Portable upright AP view of the chest was performed. FINDINGS: There are increased bilateral lung base opacities. No pneumothorax or pulmonary edema. Emphysematous changes are better characterized on prior CT scan. The heart is enlarged. IMPRESSION: 1. Increased bilateral lung base opacities may be due to progressive scarring, atelectasis, or mild pneumonia. 2. Emphysema. 3. Cardiomegaly. 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\ \UNDo\ \UNDx\ \ITLx\ Reviewed and Electronically Signed by: Sunil Song MD Signed Date: 05/23/25 15:44 Social History Type Status Start Date End Date Code Code Syst em Smoking History Current every day smoker 803747763 SNOMED CT Sex Female Medications Medication Start Date End Date Route Frequency Dose Code Code System Medication Instructions Home Meds Levothyroxine Sodium 112MCG Oral Tablet 08/19/2018 Unknown ORAL ONCE A DAY 112 MCG 573403 RxNorm TAKE 112 MCG ORAL ONCE A DAY Omeprazole 40MG Oral Capsule, Delayed Release 08/19/2018 Unknown ORAL ONCE A DAY 40 MILLIGRA MS 079441 RxNorm TAKE 40 MILLIGRAM S ORAL ONCE A DAY predniSONE 10MG Oral Tablet 02/20/2023 Unknown ORAL DAILY WITH MEAL 20 MILLIGRA MS 147155 RxNorm TAKE 20 MILLIGRAM S ORAL DAILY WITH MEAL FOR 5 DAYS FOLLOWED BY 10 MG PO FAILY FOR 5 DAYS ARIPiprazole 15MG Oral Tablet 02/20/2023 Unknown ORAL ONCE A DAY 15 MILLIGRA MS 383553 RxNorm TAKE 15 MILLIGRAM S ORAL ONCE A DAY FLUoxetine 20MG Oral Capsule 02/20/2023 Unknown ORAL ONCE A DAY 20 MILLIGRA MS 978667 RxNorm TAKE 20 MILLIGRAM S ORAL ONCE A DAY Famotidine 40MG Oral Tablet 02/20/2023 Unknown ORAL AT BEDTIME 40 MILLIGRA MS 057814 RxNorm TAKE 40 MILLIGRAM S ORAL AT BEDTIME Fludrocortisone Acetate 0.1MG Oral Tablet 02/20/2023 Unknown ORAL ONCE A DAY 0.1 MILLIGRA MS 782720 RxNorm TAKE 0.1 MILLIGRAM S ORAL ONCE A DAY HYDROcodone bitartrate-aceta minophen 10MG-300MG Oral Tablet 02/20/2023 Unknown ORAL NEEDED EVERY 6 HOURS 1 TABLET 782811 RxNorm TAKE 1 TABLET ORAL NEEDED EVERY [...] Unknown INHALATION ONCE A DAY 1 unit(s) 4338894 RxNorm 1 EACH INHALATIO N ONCE A DAY Potassium Chloride 10MEQ Oral Capsule, Extended Release 02/20/2023 Unknown ORAL ONCE A DAY 10 MEQ 978509 RxNorm TAKE 10 MEQ ORAL ONCE A DAY Primidone 50MG Oral Tablet 02/20/2023 Unknown ORAL AT BEDTIME 125 MILLIGRA MS 459078 RxNorm TAKE 125 MILLIGRAM S ORAL AT BEDTIME Primidone 50MG Oral Tablet 02/20/2023 Unknown ORAL ONCE A DAY 200 MILLIGRA MS 045725 RxNorm TAKE 200 MILLIGRAM S ORAL ONCE A DAY Primidone 50MG Oral Tablet 02/20/2023 Unknown ORAL DAILY AT 1200 125 MILLIGRA MS 704185 RxNorm TAKE 125 MILLIGRAM S ORAL DAILY AT 1200 Symbicort 160/4.5 160MCG-4.5MCG/1 Actu Inhalation Aerosol Liquid 02/20/2023 Unknown INHALATION TWICE A DAY 2 unit(s) 8342125 RxNorm 2 EACH INHALATIO N TWICE A [...] Date Status Code Code System DIARRHEA active 91360521 SNOMED-CT CONTACT WITH AND (SUSPECTED) EXPOSURE TO COVID-19 active 065806201 SNOMED- CT ENCOUNTER FOR SCREENING FOR COVID-19 active 477124556 SNOMED-CT Allergies and Adverse Reactions Allergy Substance Reaction Severity Start Date Concern Status Code Code System SULFA (sulfonamide) FOOT WENT TO SLEEP (SNOMED-CT: null) Moderate Active 11499288 SNOMED-CT BIAXIN ANGIOEDEMA (SNOMED-CT: null) Moderate Active 684825 RxNorm PENICILLIN ANGOIEDEMA (SNOMED-CT: null) Moderate Active Plan of Treatment Hai Established Patient 026 US Echo With Color (78059) 07/12/2025 CT Chest CA Screen (41267) 07/21/2025 Encounters Encounter Diagnosis Start Date Code Code Sys tem Other chest pain 05/23/2025 SNOMED-CT Personal Care Team Section Performer Name Performer Role Active Date Inactive Da GLADYS Casiano PCP - Primary care physician 2021-03-02 2022-04-01 SANDRA GONZALEZ PCP - Primary care physician 2022-04-01 Imaging Narrative Notes [facility] 05/23/2025 15:46 [facility] [address] [place] [address] ---------NAME--------- NUMBER SEX AGE ADMIT DISC. XRAY# F/C TYPE [place] HADLEY HUSSEIN [id number] F 60 05/23/25 47809 MB3 E.R. DATE OF : 1965 M/R# [id number] #: [id number] ED-30 LOCATION: TRANSCRIBED: 05/23/25 15:44 CHEST 1V 21381 COMPLETED: 81145 Chest Pain PHYSICIAN: NEREIDA PHI RADIOLOGY REPORT EXAM: CHEST 1V HISTORY: Chest Pain, shortness of breath, history of COPD COMPARISON: CHEST 1V on DOS: 06/08/24, chest x-ray dated 01/18/2024, chest x-ray dated 04/11/2025, chest CT dated 07/20/2024 TECHNIQUE: Portable upright AP view of the chest was performed. FINDINGS: There are increased bilateral lung base opacities. No pneumothorax or pulmonary edema. Emphysematous changes are better characterized on prior CT scan. The heart is enlarged. IMPRESSION: 1. Increased bilateral lung base opacities may be due to progressive scarring, atelectasis, or mild pneumonia. 2. Emphysema. 3. Cardiomegaly. 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
--- OUTSIDE RECORDS SUMMARY | 2025-06-28 17:45 | XMS_ITS ---
Author Organization Unknown Address [address] [place] [address] [phone] Phone Care Team Providers Care Diabetic Educator Name Role Phone WARRENKelton DARIO Attending Unavailable CARLOS Cifuentes Primary Unavailable Immunization Immunization Date Status Additional Notes Code Code System Influenza, split virus, trivalent, preservative 05/09/2013 Completed 141 CVX COVID-19, mRNA, LNP-S, PF, 3 0 mcg/0.3 mL dose 03/21/2021 Completed 208 CVX COVID-19, mRNA, LNP-S, PF, 3 0 mcg/0.3 mL dose 04/11/2021 Completed [address] CHEST CA SCREEN - Complet ed: 07/20/2024 12:42 LOINC: EXAM DESCRIPTION: CT CHEST CA SCREEN REASON FOR STUDY: Screening CT of the chest in a former smoker with a 41 pack year smoking history. Additional history: None. TECHNIQUE: Low dose CT scan of the chest was performed without intravenous contrast using helical scanning technique. The exam extends from the lung apices through the lung bases. Automatic exposure control was used as a dose optimization technique. NOTE: This study was performed for the specific purposes of lung cancer screening and is not an alternative to diagnostic chest CT. RADIATION DOSE: CT dose index volume (CTDIvol) = 3.08 mGy COMPARISON: 02/16/2023 and 04/03/2022 FINDINGS: SMOKING RELATED LUNG DISEASE: Moderate emphysema and mild bronchial wall thickening. LUNG NODULES: No suspicious nodule was seen. CORONARY ARTERY CALCIFICATION: Present OTHER: A thick linear scar is seen at the left lung base. A few nonspecific mediastinal lymph nodes are unchanged. The upper abdomen is unremarkable. No suspicious bone lesions were seen. IMPRESSION: ? ? Moderate emphysema ? ? No evidence of lung cancer. Lung-RADS category 1: Negative. Recommendation: Low dose Screening CT of chest in 12 months. THIS IS AN ELECTRONICALLY VERIFIED FINAL REPORT 07/28/2024 4:20 PM - Electronically signed by Michael Grajeda M.D. EDITH: EDITH Report ID: [id number] Reading Location: [place] [address] Social History Type Status Start Date End Date Code Code Syst em Smoking History Current every day smoker [id number] SNOMED CT Sex Female Medications Medication Start Date End Date Route Frequency Dose Code Code System Medication Instructions Home Meds Levothyroxine Sodium 112MCG Oral Tablet 08/19/2018 Unknown ORAL ONCE A DAY 112 MCG 114775 RxNorm TAKE 112 MCG ORAL ONCE A DAY Omeprazole 40MG Oral Capsule, Delayed Release 08/19/2018 Unknown ORAL ONCE A DAY 40 MILLIGRA MS 842081 RxNorm TAKE 40 MILLIGRAM S ORAL ONCE A DAY predniSONE 10MG Oral Tablet 02/20/2023 Unknown ORAL DAILY WITH MEAL 20 MILLIGRA MS 512627 RxNorm TAKE 20 MILLIGRAM S ORAL DAILY WITH MEAL FOR 5 DAYS FOLLOWED BY 10 MG PO FAILY FOR 5 DAYS ARIPiprazole 15MG Oral Tablet 02/20/2023 Unknown ORAL ONCE A DAY 15 MILLIGRA MS 747862 RxNorm TAKE 15 MILLIGRAM S ORAL ONCE A DAY FLUoxetine 20MG Oral Capsule 02/20/2023 Unknown ORAL ONCE A DAY 20 MILLIGRA MS 115002 RxNorm TAKE 20 MILLIGRAM S ORAL ONCE A DAY Famotidine 40MG Oral Tablet 02/20/2023 Unknown ORAL AT BEDTIME 40 MILLIGRA MS 662838 RxNorm TAKE 40 MILLIGRAM S ORAL AT BEDTIME Fludrocortisone Acetate 0.1MG Oral Tablet 02/20/2023 Unknown ORAL ONCE A DAY 0.1 MILLIGRA MS 458649 RxNorm TAKE 0.1 MILLIGRAM S ORAL ONCE A DAY HYDROcodone bitartrate-aceta minophen 10MG-300MG Oral Tablet 02/20/2023 Unknown ORAL NEEDED EVERY 6 HOURS 1 TABLET 989495 RxNorm TAKE 1 TABLET ORAL NEEDED EVERY 6 HOURS FOR PAIN Hydrocortisone 5MG Oral Tablet 02/20/2023 Unknown ORAL DAILY WITH MEAL 15 MILLIGRA MS 996414 RxNorm TAKE 15 MILLIGRAM S ORAL DAILY WITH MEAL Hydrocortisone 5MG Oral Tablet 02/20/2023 Unknown ORAL EVERY EVENING 10 MILLIGRA MS 19770309 RxNorm TAKE 10 MILLIGRAM S ORAL EVERY EVENING Incruse Ellipta 62.5MCG/1ACT Inhalation Powder 02/20/2023 Unknown INHALATION ONCE A DAY 1 unit(s) 7603124 RxNorm 1 EACH INHALATIO N ONCE A DAY Potassium Chloride 10MEQ Oral Capsule, Extended Release 02/20/2023 Unknown ORAL ONCE A DAY 10 MEQ 060090 RxNorm TAKE 10 MEQ ORAL ONCE A DAY Primidone 50MG Oral Tablet 02/20/2023 Unknown ORAL AT BEDTIME 125 MILLIGRA MS 376340 RxNorm TAKE 125 MILLIGRAM S ORAL AT BEDTIME Primidone 50MG Oral Tablet 02/20/2023 Unknown ORAL ONCE A DAY 200 MILLIGRA MS 209315 RxNorm TAKE 200 MILLIGRAM S ORAL ONCE A DAY Primidone 50MG Oral Tablet 02/20/2023 Unknown ORAL DAILY AT 1200 125 MILLIGRA MS RxNorm TAKE 125 MILLIGRAM S ORAL DAILY AT 1200 Symbicort 160/4.5 160MCG-4.5MCG/1 Actu Inhalation Aerosol Liquid 02/20/2023 Unknown INHALATION TWICE A DAY 2 unit(s) 9528457 RxNorm 2 EACH INHALATIO N TWICE A [...] Date Status Code Code System DIARRHEA active 92863675 SNOMED-CT CONTACT WITH AND (SUSPECTED) EXPOSURE TO COVID-19 active 114406411 SNOMED- CT ENCOUNTER FOR SCREENING FOR COVID-19 active 524718197 SNOMED-CT Allergies and Adverse Reactions Allergy Substance Reaction Severity Start Date Concern Status Code Code System SULFA (sulfonamide) FOOT WENT TO SLEEP (SNOMED-CT: null) Moderate Active 44996097 SNOMED-CT BIAXIN ANGIOEDEMA (SNOMED-CT: null) Moderate Active 20360911 RxNorm PENICILLIN ANGOIEDEMA (SNOMED-CT: null) Moderate Active Plan of Treatment Hai Established Patient 026 US Echo With Color (53575) 07/12/2025 CT Chest CA Screen (96816) 07/21/2025 Encounters Encounter Diagnosis Start Date Code Code Sys tem Encounter for screening for malignant neoplasm of respiratory organs 07/20/2024 SNOMED-CT Personal Care Team Section Performer Name Performer Role Active Date Inactive GLADYS Church PCP - Primary care physician 2021-03-02 2022-04-01 SANDRA GONZALEZ PCP - Primary care physician 2022-04-01 Imaging Narrative Notes Procedures Notes [facility] 07/21/2024 17:59 Pulmonary Function Test DOS: 20-Jul-24 Ordering Provider: Dario Valles M.D. Spirometry Parameter Units Pred. LLN Pre %Pred Post %Pred %Chg FVC L 3.01 2.28 1.63 54 1.67 55 2 FEV1 L 2.38 1.79 0.86 36 0.83 35 -3 FEV1/FVC % 79 67 53 67 50 63 -6 PEFR L/s 6.07 4.42 2.64 43 2.30 38 -13 Plethysmography Parameter Units Pred LLN Pre %Pre TLC L 4.77 3.78 386 81 VC L 3.02 2.28 1.76 58 RV L 1.96 1.19 2.10 107 RV/TLC % 40 34 54 135 FRC L 2.77 17.71 3.36 121 ERV L 0.81 0.45 0.36 44 Raw cmH2O/L/s 1.70 0.60 4.57 269 sGaw L/s/cmH2O/L 0.26 0.11 0.07 27 Diffusing Capacity Parameter Units Pred LLN Pre %Pred DLCO mL/min/mmHg 19.46 14.80 7.05 36 DLCO [Hb] mL/min/mmHg 19.46 14.80 7.05 36 DLCO/VA mL/min/mmHg/L 4.28 3.30 2.56 60 VA [BTPS] L 4.59 3.69 2.75 60 [BTPS] L 3.02 2.28 1.61 53 Diffusion Time sec 12.06 Trend Results Test series Date FVC %Prd FEV1 %Pred TLC %Prd DLCO %Prd 20-Jul-24 Pre 1.63 54 0.86 36 4.76 100 7.05 36 Post 1.67 55 0.83 35 26-Mar-23 Pre 1.53 50 0.85 35 3.79 79 7.45 38 Post 2.15 70 1.19 49 Physician Impression: 1. Severe obstructive ventilatory impairment per GOLD criteria. 2. No significant response to bronchodilators, based on change of FVC and FEV1 to bronchodilators. However, this does not preclude the clinic to use of bronchodilators. 3. No hyperinflation or air trapping. 4. Severely reduced diffusion capacity; recommend adjustment with hemoglobin concentration.
--- OUTSIDE RECORDS SUMMARY | 2025-06-28 17:45 | XMS_ITS ---
Author Organization Unknown Address [address] [place] [address] [phone] Phone Care Team Providers Care Reservations Sales Supervisor Name Role Phone WARRENKelton LUIS ARMANDO Attending [...] em Smoking History Current every day smoker [id number] SNOMED CT Sex Female Medications Medication Start Date End Date Route Frequency Dose Code Code System Medication Instructions Home Meds Abilify 15MG Oral Tablet 08/19/2018 02/15/2023 ORAL ONCE A DAY 15 MILLIGRAMS 522824 RxNorm TAKE 15 MILLIGRAMS ORAL ONCE A DAY Bentyl 10MG Oral Capsule 08/19/2018 02/15/2023 ORAL ONCE A DAY 10 MILLIGRAMS 378667 RxNorm TAKE 10 MILLIGRAMS ORAL ONCE A DAY Gabapentin 300MG Oral Capsule 08/19/2018 02/15/2023 ORAL ONCE A DAY 300 MILLIGRAMS 732003 RxNorm TAKE 300 MILLIGRAMS ORAL ONCE A DAY Levothyroxi ne Sodium 112MCG Oral Tablet 08/19/2018 Unknown ORAL ONCE A DAY 112 MCG 019081 RxNorm TAKE 112 MCG ORAL ONCE A DAY [place] 10MG-325MG Oral Tablet 08/19/2018 02/15/2023 ORAL NEEDED 1 unit(s) 952631 RxNorm TAKE 1 EACH ORAL NEEDED Omeprazole 40MG Oral Capsule, Delayed Release 08/19/2018 Unknown ORAL ONCE A DAY 40 MILLIGRAMS 20020911 RxNorm TAKE 40 MILLIGRAMS ORAL ONCE A DAY Paxil 30MG Oral Tablet 08/19/2018 02/15/2023 ORAL ONCE A DAY 30 MILLIGRAMS 112111 RxNorm TAKE 30 MILLIGRAMS ORAL ONCE A DAY Primidone 50MG Oral Tablet 08/19/2018 02/15/2023 ORAL ONCE A DAY 50 MILLIGRAMS 993280 RxNorm TAKE 50 MILLIGRAMS ORAL ONCE A DAY tiZANidine HCl 4MG Oral Tablet 08/19/2018 02/15/2023 ORAL ONCE A DAY 4 MILLIGRAMS 263087 RxNorm TAKE 4 MILLIGRAMS ORAL ONCE A DAY predniSONE 10MG Oral Tablet 02/20/2023 Unknown ORAL DAILY WITH MEAL 20 MILLIGRAMS 957867 RxNorm TAKE 20 MILLIGRAMS ORAL DAILY WITH MEAL FOR 5 DAYS FOLLOWED BY 10 MG PO FAILY FOR 5 DAYS ARIPiprazol e 15MG Oral Tablet 02/20/2023 Unknown ORAL ONCE A DAY 15 MILLIGRAMS 606933 RxNorm TAKE 15 MILLIGRAMS ORAL ONCE A DAY FLUoxetine 20MG Oral Capsule 02/20/2023 Unknown ORAL ONCE A DAY 20 MILLIGRAMS 799588 RxNorm TAKE 20 MILLIGRAMS ORAL ONCE A DAY Famotidine 40MG Oral Tablet 02/20/2023 Unknown ORAL AT BEDTIME 40 MILLIGRAMS 605289 RxNorm TAKE 40 MILLIGRAMS ORAL AT BEDTIME Fludrocorti sone Acetate 0.1MG Oral Tablet 02/20/2023 Unknown ORAL ONCE A DAY 0.1 MILLIGRAMS 788545 RxNorm TAKE 0.1 MILLIGRAMS ORAL ONCE A DAY HYDROcodone bitartrate- acetaminoph en 10MG-300MG Oral Tablet 02/20/2023 Unknown ORAL NEEDED EVERY 6 HOURS 1 TABLET 901991 RxNorm TAKE 1 TABLET ORAL NEEDED EVERY 6 HOURS FOR PAIN Hydrocortis one 5MG Oral Tablet 02/20/2023 Unknown ORAL DAILY WITH MEAL 15 MILLIGRAMS 19770309 RxNorm TAKE 15 MILLIGRAMS ORAL DAILY WITH MEAL Hydrocortis one 5MG Oral Tablet 02/20/2023 Unknown ORAL EVERY EVENING 10 MILLIGRAMS 19770309 RxNorm TAKE 10 MILLIGRAMS ORAL EVERY EVENING Incruse Ellipta 62.5MCG/1AC T Inhalation Powder 02/20/2023 Unknown INHALATI ON ONCE A DAY 1 unit(s) 3153722 RxNorm 1 EACH INHALATION ONCE A DAY Potassium Chloride 10MEQ Oral Capsule, Extended Release 02/20/2023 Unknown ORAL ONCE A DAY 10 MEQ 671002 RxNorm TAKE 10 MEQ ORAL ONCE A DAY Primidone 50MG Oral Tablet 02/20/2023 Unknown ORAL AT BEDTIME 125 MILLIGRAMS 836602 RxNorm TAKE 125 MILLIGRAMS ORAL AT BEDTIME Primidone 50MG Oral Tablet 02/20/2023 Unknown ORAL ONCE A DAY 200 MILLIGRAMS 419007 RxNorm TAKE 200 MILLIGRAMS ORAL ONCE A DAY Primidone 50MG Oral Tablet 02/20/2023 Unknown ORAL DAILY AT 1200 125 MILLIGRAMS 449661 RxNorm TAKE 125 MILLIGRAMS ORAL DAILY AT 1200 Symbicort 160/4.5 160MCG-4.5M CG/1 Actu Inhalation Aerosol Liquid 02/20/2023 Unknown INHALATI ON TWICE A DAY 2 unit(s) 3652196 RxNorm 2 EACH INHALATION TWICE A DAY Vitamin D3 1000IU Oral [...] Date Status Code Code System DIARRHEA active 44707118 SNOMED-CT CONTACT WITH AND (SUSPECTED) EXPOSURE TO COVID-19 active 587954847 SNOMED- CT ENCOUNTER FOR SCREENING FOR COVID-19 active 125202228 SNOMED-CT Allergies and Adverse Reactions Allergy Substance Reaction Severity Start Date Concern Status Code Code System SULFA (sulfonamide) FOOT WENT TO SLEEP (SNOMED-CT: null) Moderate Active 33972983 SNOMED-CT BIAXIN ANGIOEDEMA (SNOMED-CT: null) Moderate Active 023595 RxNorm PENICILLIN ANGOIEDEMA (SNOMED-CT: null) Moderate Active Plan of Treatment Hai Established Patient 026 US Echo With Color (94594) 07/12/2025 CT Chest CA Screen (50576) 07/21/2025 Personal Care Team Section Performer Name Performer Role Active Date Inactive Da GLADYS Casiano PCP - Primary care physician 2021-03-02 2022-04-01 SANDRA GONZALEZ PCP - Primary care physician 2022-04-01
--- OUTSIDE RECORDS SUMMARY | 2025-06-28 17:46 | XMS_ITS ---
Author Organization Unknown Address [address] [place] [address] [phone] Phone Care Team Providers Care Dental Manager Name Role Phone WARRENKelton LUIS ARMANDO Attending [...] em Smoking History Current every day smoker [id number] SNOMED CT Sex Female Medications Medication Start Date End Date Route Frequency Dose Code Code System Medication Instructions Home Meds Abilify 15MG Oral Tablet 08/19/2018 02/15/2023 ORAL ONCE A DAY 15 MILLIGRAMS 687836 RxNorm TAKE 15 MILLIGRAMS ORAL ONCE A DAY Bentyl 10MG Oral Capsule 08/19/2018 02/15/2023 ORAL ONCE A DAY 10 MILLIGRAMS 896377 RxNorm TAKE 10 MILLIGRAMS ORAL ONCE A DAY Gabapentin 300MG Oral Capsule 08/19/2018 02/15/2023 ORAL ONCE A DAY 300 MILLIGRAMS 560018 RxNorm TAKE 300 MILLIGRAMS ORAL ONCE A DAY Levothyroxi ne Sodium 112MCG Oral Tablet 08/19/2018 Unknown ORAL ONCE A DAY 112 MCG 962749 RxNorm TAKE 112 MCG ORAL ONCE A DAY [place] 10MG-325MG Oral Tablet 08/19/2018 02/15/2023 ORAL NEEDED 1 unit(s) 915377 RxNorm TAKE 1 EACH ORAL NEEDED Omeprazole 40MG Oral Capsule, Delayed Release 08/19/2018 Unknown ORAL ONCE A DAY 40 MILLIGRAMS 20020911 RxNorm TAKE 40 MILLIGRAMS ORAL ONCE A DAY Paxil 30MG Oral Tablet 08/19/2018 02/15/2023 ORAL ONCE A DAY 30 MILLIGRAMS 824584 RxNorm TAKE 30 MILLIGRAMS ORAL ONCE A DAY Primidone 50MG Oral Tablet 08/19/2018 02/15/2023 ORAL ONCE A DAY 50 MILLIGRAMS 683201 RxNorm TAKE 50 MILLIGRAMS ORAL ONCE A DAY tiZANidine HCl 4MG Oral Tablet 08/19/2018 02/15/2023 ORAL ONCE A DAY 4 MILLIGRAMS 008613 RxNorm TAKE 4 MILLIGRAMS ORAL ONCE A DAY predniSONE 10MG Oral Tablet 02/20/2023 Unknown ORAL DAILY WITH MEAL 20 MILLIGRAMS 355308 RxNorm TAKE 20 MILLIGRAMS ORAL DAILY WITH MEAL FOR 5 DAYS FOLLOWED BY 10 MG PO FAILY FOR 5 DAYS ARIPiprazol e 15MG Oral Tablet 02/20/2023 Unknown ORAL ONCE A DAY 15 MILLIGRAMS 756622 RxNorm TAKE 15 MILLIGRAMS ORAL ONCE A DAY FLUoxetine 20MG Oral Capsule 02/20/2023 Unknown ORAL ONCE A DAY 20 MILLIGRAMS 613905 RxNorm TAKE 20 MILLIGRAMS ORAL ONCE A DAY Famotidine 40MG Oral Tablet 02/20/2023 Unknown ORAL AT BEDTIME 40 MILLIGRAMS 102387 RxNorm TAKE 40 MILLIGRAMS ORAL AT BEDTIME Fludrocorti sone Acetate 0.1MG Oral Tablet 02/20/2023 Unknown ORAL ONCE A DAY 0.1 MILLIGRAMS 927379 RxNorm TAKE 0.1 MILLIGRAMS ORAL ONCE A DAY HYDROcodone bitartrate- acetaminoph en 10MG-300MG Oral Tablet 02/20/2023 Unknown ORAL NEEDED EVERY 6 HOURS 1 TABLET 231328 RxNorm TAKE 1 TABLET ORAL NEEDED EVERY [...] INHALATI ON ONCE A DAY 1 unit(s) 5397536 RxNorm 1 EACH INHALATION ONCE A DAY Potassium Chloride 10MEQ Oral Capsule, Extended Release 02/20/2023 Unknown ORAL ONCE A DAY 10 MEQ 687207 RxNorm TAKE 10 MEQ ORAL ONCE A DAY Primidone 50MG Oral Tablet 02/20/2023 Unknown ORAL AT BEDTIME 125 MILLIGRAMS 348925 RxNorm TAKE 125 MILLIGRAMS ORAL AT BEDTIME Primidone 50MG Oral Tablet 02/20/2023 Unknown ORAL ONCE A DAY 200 MILLIGRAMS 438278 RxNorm TAKE 200 MILLIGRAMS ORAL ONCE A DAY Primidone 50MG Oral Tablet 02/20/2023 Unknown ORAL DAILY AT 1200 125 MILLIGRAMS 354337 RxNorm TAKE 125 MILLIGRAMS ORAL DAILY AT 1200 Symbicort 160/4.5 160MCG-4.5M CG/1 Actu Inhalation Aerosol Liquid 02/20/2023 Unknown INHALATI ON TWICE A DAY 2 unit(s) 1486720 RxNorm 2 EACH INHALATION TWICE A DAY [...] Date Status Code Code System DIARRHEA active 57215142 SNOMED-CT CONTACT WITH AND (SUSPECTED) EXPOSURE TO COVID-19 active 717076331 SNOMED- CT ENCOUNTER FOR SCREENING FOR COVID-19 active 556632373 SNOMED-CT Allergies and Adverse Reactions Allergy Substance Reaction Severity Start Date Concern Status Code Code System SULFA (sulfonamide) FOOT WENT TO SLEEP (SNOMED-CT: null) Moderate Active 99643548 SNOMED-CT BIAXIN ANGIOEDEMA (SNOMED-CT: null) Moderate Active 472175 RxNorm PENICILLIN ANGOIEDEMA (SNOMED-CT: null) Moderate Active Plan of Treatment Hai Established Patient 026 US Echo With Color (52674) 07/12/2025 CT Chest CA Screen (20134) 07/21/2025 Personal Care Team Section Performer Name Performer Role Active Date Inactive Da GLADYS Casiano PCP - Primary care physician 2021-03-02 2022-04-01 SANDRA GONZALEZ PCP - Primary care physician 2022-04-01
--- OUTSIDE RECORDS SUMMARY | 2025-06-28 17:46 | XMS_ITS ---
Author Organization Unknown Address [address] [place] [address] [phone] Phone Care Team Providers Care County Manager Name Role Phone WARRENKelton LUIS ARMANDO Attending Unavailable CARLOS Cifuentes Primary Unavailable Immunization Immunization Date Status Additional Notes Code Code System Influenza, split virus, trivalent, preservative 05/09/2013 Completed 141 CVX COVID-19, mRNA, LNP-S, PF, 3 0 mcg/0.3 mL dose 03/21/2021 Completed 208 CVX COVID-19, mRNA, LNP-S, PF, 3 0 mcg/0.3 mL dose 04/11/2021 Completed 208 CVX Results US ECHO W/COLOR W/CONTRAST - Completed: 12/20/2024 10:34 LOINC: See Scanned Image Attachment for Report Dictated By: Trans Initials: BG Trans Date: 12/29/24 11:12 <<REPDIST>> Social History Type Status Start Date End Date Code Code Syst em Smoking History Current every day smoker [id number] SNOMED CT Sex Female Medications Medication Start Date End Date Route Frequency Dose Code Code System Medication Instructions Home Meds Levothyroxine Sodium 112MCG Oral Tablet 08/19/2018 Unknown ORAL ONCE A DAY 112 MCG 181492 RxNorm TAKE 112 MCG ORAL ONCE A DAY Omeprazole 40MG Oral Capsule, Delayed Release 08/19/2018 Unknown ORAL ONCE A DAY 40 MILLIGRA MS 20020911 RxNorm TAKE 40 MILLIGRAM S ORAL ONCE A DAY predniSONE 10MG Oral Tablet 02/20/2023 Unknown ORAL DAILY WITH MEAL 20 MILLIGRA MS 995251 RxNorm TAKE 20 MILLIGRAM S ORAL DAILY WITH MEAL FOR 5 DAYS FOLLOWED BY 10 MG PO FAILY FOR 5 DAYS ARIPiprazole 15MG Oral Tablet 02/20/2023 Unknown ORAL ONCE A DAY 15 MILLIGRA MS 551568 RxNorm TAKE 15 MILLIGRAM S ORAL ONCE A DAY FLUoxetine 20MG Oral Capsule 02/20/2023 Unknown ORAL ONCE A DAY 20 MILLIGRA MS 626424 RxNorm TAKE 20 MILLIGRAM S ORAL ONCE A DAY Famotidine 40MG Oral Tablet 02/20/2023 Unknown ORAL AT BEDTIME 40 MILLIGRA MS 170470 RxNorm TAKE 40 MILLIGRAM S ORAL AT BEDTIME Fludrocortisone Acetate 0.1MG Oral Tablet 02/20/2023 Unknown ORAL ONCE A DAY 0.1 MILLIGRA MS 591114 RxNorm TAKE 0.1 MILLIGRAM S ORAL ONCE A DAY HYDROcodone bitartrate-aceta minophen 10MG-300MG Oral Tablet 02/20/2023 Unknown ORAL NEEDED EVERY 6 HOURS 1 TABLET 619819 RxNorm TAKE 1 TABLET ORAL NEEDED EVERY [...] Unknown INHALATION ONCE A DAY 1 unit(s) 3330637 RxNorm 1 EACH INHALATIO N ONCE A DAY Potassium Chloride 10MEQ Oral Capsule, Extended Release 02/20/2023 Unknown ORAL ONCE A DAY 10 MEQ 715393 RxNorm TAKE 10 MEQ ORAL ONCE A DAY Primidone 50MG Oral Tablet 02/20/2023 Unknown ORAL AT BEDTIME 125 MILLIGRA MS 883548 RxNorm TAKE 125 MILLIGRAM S ORAL AT BEDTIME Primidone 50MG Oral Tablet 02/20/2023 Unknown ORAL ONCE A DAY 200 MILLIGRA MS 111675 RxNorm TAKE 200 MILLIGRAM S ORAL ONCE A DAY Primidone 50MG Oral Tablet 02/20/2023 Unknown ORAL DAILY AT 1200 125 MILLIGRA MS 281102 RxNorm TAKE 125 MILLIGRAM S ORAL DAILY AT 1200 Symbicort 160/4.5 160MCG-4.5MCG/1 Actu Inhalation Aerosol Liquid 02/20/2023 Unknown INHALATION TWICE A DAY 2 unit(s) 1360295 RxNorm 2 EACH INHALATIO N TWICE A [...] Date Status Code Code System DIARRHEA active 80682415 SNOMED-CT CONTACT WITH AND (SUSPECTED) EXPOSURE TO COVID-19 active 967518785 SNOMED- CT ENCOUNTER FOR SCREENING FOR COVID-19 active 889732247 SNOMED-CT Allergies and Adverse Reactions Allergy Substance Reaction Severity Start Date Concern Status Code Code System SULFA (sulfonamide) FOOT WENT TO SLEEP (SNOMED-CT: null) Moderate Active 04729173 SNOMED-CT BIAXIN ANGIOEDEMA (SNOMED-CT: null) Moderate Active 918828 RxNorm PENICILLIN ANGOIEDEMA (SNOMED-CT: null) Moderate Active Plan of Treatment Hai Established Patient 026 US Echo With Color (78751) 07/12/2025 CT Chest CA Screen (51590) 07/21/2025 Encounters Encounter Diagnosis Start Date Code Code Sys tem Shortness of breath 12/20/2024 SNOMED-C T Personal Care Team Section Performer Name Performer Role Active Date Inactive GLADYS Church PCP - Primary care physician 2021-03-02 2022-04-01 SANDRA GONZALEZ PCP - Primary care physician 2022-04-01
--- OUTSIDE RECORDS SUMMARY | 2025-06-28 17:46 | XMS_ITS ---
Author Organization Unknown Address [address] [place] [address] [phone] Phone Care Team Providers Care Landscaping Crew Leader Name Role Phone EMMA BRISCOE Attending Unavailable CARLOS Cifuentes Primary Unavailable Immunization Immunization Date Status Additional Notes Code Code System Influenza, split virus, trivalent, preservative 05/09/2013 Completed 141 CVX COVID-19, mRNA, LNP-S, PF, 3 0 mcg/0.3 mL dose 03/21/2021 Completed 208 CVX COVID-19, mRNA, LNP-S, PF, 3 0 mcg/0.3 mL dose 04/11/2021 Completed 208 CVX Results BONE DENSITY STUDY DEXA HIP OR SPINE - Completed: 11/25/2024 10:36 LOINC: \TM00\\12PI\\DRAo\\BM09\ \MRHo\ [address] [address] ---------NAME--------- NUMBER SEX AGE ADMIT DISC. XRAY# F/C TYPE ARTIE HUSSEIN [id number] F 59 11/25/24 11/25/24 95503 MB3 O/P DATE OF : 1965 M/R# [id number] PH#: [phone] RM \MRHx\ LOCATION: TRANSCRIBED: 11/25/24 11:01 BONE DENSITY STUDY DEXA HIP [id number] COMPLETED:11/25/24 10:36 [facility] [id number] {REASON-BONE DENSITY: POSTMENOPAUSAL PHYSICIAN: EMMA R A D I O L O G Y R E P O R T INDICATION: POSTMENOPAUSAL DEXA SCAN: BONE DENSITY REPORT: AP SPINE (L1-L4) : T Score: -0.2 LEFT FEMORAL NECK : T Score: -1.2 LEFT HIP TOTAL : T Score: -1.8 IMPRESSION: Osteopenia left femur *FRAX version 3.08. Fracture probability calculated for an untreated patient. Fracture probability may be lower if the patient has received treatment. T-score: comparison by standard deviation (SD) to a young adult population, matched for sex and ethnicity (used for postmenopausal women and men >50 years) and classified by WHO criteria. -1.0: normal <-1.0 to >-2.5: osteopenia -2.5: osteoporosis -2.5 plus fragility fracture: severe osteoporosis Z-score: compared by SD to an age, sex, and ethnicity population (used for premenopausal women, men <50 years, and children instead of T-score WHO criteria 4) <-2.0: below expected range/low bone density for age, and a cause should be sought AL REPRESENTATIVE \ITLo\ \UNDo\ \UNDx\ \ITLx\ Reviewed and Electronically Signed by: García Barragan MD Signed Date: 11/25/24 11:01 DIG 3D JE SCREENING BILATER AL - Completed: 11/25/2024 10:50 LOINC: \TM00\\12PI\\DRAo\\BM09\ \MRHo\ [address] [address] ---------NAME--------- NUMBER SEX AGE ADMIT DISC. XRAY# F/C TYPE AUCONSTANCEN HADLEY HUSSEIN [id number] F 59 11/25/24 11/25/24 61100 MB3 O/P DATE OF : 1965 M/R# [id number] PH#: [phone] RM \MRHx\ LOCATION: TRANSCRIBED: 11/28/24 9:08 DIG 3D JE SCREENING [id number] COMPLETED:11/25/24 10:50 [facility] [id number] (REASONS-DIG 3D JE SCREENING BILATERAL: SCREENING PHYSICIAN: EMMA R A D I O L O G Y R E P O R T PROCEDURE: SCREENING MAMMOGRAM WITH TOMOSYNTHESIS REASON FOR EXAM: Screening mammogram. COMPARISON: DIG 3D JE SCREENING BILATERAL on DOS: 06/08/23, DIG 3D JE DIAG R UNILATERA on DOS: 05/07/22, DIG 3D JE SCREENING BILATERAL on DOS: 12/24/21 TECHNIQUE: Bilateral CC and MLO views obtained. Images were obtained using a Digital Tomosynthesis Unit. Standard 2D and 3D Tomosynthesis images were reviewed. This examination was analyzed using Sw[employer] Mobile DBT/MMG in addition to a radiologist review, an AI software developed to enhance the effectiveness of breast cancer screening with mammography. FINDINGS: BREAST COMPOSITION: A - The breasts are almost entirely fatty. In the right breast, no asymmetrical parenchymal pattern, architectural distortion, pleomorphic microcalcifications or masses. In the left breast, no asymmetrical parenchymal pattern, architectural distortion, pleomorphic microcalcifications or masses. IMPRESSION: No mammographic evidence of malignancy. RECOMMENDATION: Recommend annual mammogram. ASSESSMENT: BIRADS: 1 - Negative AL REPRESENTATIVE \ITLo\ \UNDo\ \UNDx\ \ITLx\ Reviewed and Electronically Signed by: GEN RIZVI Signed Date: SIGNDATE Social History Type Status Start Date End Date Code Code Syst em Smoking History Current every day smoker [id number] SNOMED CT Sex Female Medications Medication Start Date End Date Route Frequency Dose Code Code System Medication Instructions Home Meds Levothyroxine Sodium 112MCG Oral Tablet 08/19/2018 Unknown ORAL ONCE A DAY 112 MCG 245905 RxNorm TAKE 112 MCG ORAL ONCE A DAY Omeprazole 40MG Oral Capsule, Delayed Release 08/19/2018 Unknown ORAL ONCE A DAY 40 MILLIGRA MS 062746 RxNorm TAKE 40 MILLIGRAM S ORAL ONCE A DAY predniSONE 10MG Oral Tablet 02/20/2023 Unknown ORAL DAILY WITH MEAL 20 MILLIGRA MS 768494 RxNorm TAKE 20 MILLIGRAM S ORAL DAILY WITH MEAL FOR 5 DAYS FOLLOWED BY 10 MG PO FAILY FOR 5 DAYS ARIPiprazole 15MG Oral Tablet 02/20/2023 Unknown ORAL ONCE A DAY 15 MILLIGRA MS 541118 RxNorm TAKE 15 MILLIGRAM S ORAL ONCE A DAY FLUoxetine 20MG Oral Capsule 02/20/2023 Unknown ORAL ONCE A DAY 20 MILLIGRA MS 971140 RxNorm TAKE 20 MILLIGRAM S ORAL ONCE A DAY Famotidine 40MG Oral Tablet 02/20/2023 Unknown ORAL AT BEDTIME 40 MILLIGRA MS 093282 RxNorm TAKE 40 MILLIGRAM S ORAL AT BEDTIME Fludrocortisone Acetate 0.1MG Oral Tablet 02/20/2023 Unknown ORAL ONCE A DAY 0.1 MILLIGRA MS 375582 RxNorm TAKE 0.1 MILLIGRAM S ORAL ONCE A DAY HYDROcodone bitartrate-aceta minophen 10MG-300MG Oral Tablet 02/20/2023 Unknown ORAL NEEDED EVERY 6 HOURS 1 TABLET 089533 RxNorm TAKE 1 TABLET ORAL NEEDED EVERY [...] Unknown INHALATION ONCE A DAY 1 unit(s) 4942387 RxNorm 1 EACH INHALATIO N ONCE A DAY Potassium Chloride 10MEQ Oral Capsule, Extended Release 02/20/2023 Unknown ORAL ONCE A DAY 10 MEQ 261006 RxNorm TAKE 10 MEQ ORAL ONCE A DAY Primidone 50MG Oral Tablet 02/20/2023 Unknown ORAL AT BEDTIME 125 MILLIGRA MS 332324 RxNorm TAKE 125 MILLIGRAM S ORAL AT BEDTIME Primidone 50MG Oral Tablet 02/20/2023 Unknown ORAL ONCE A DAY 200 MILLIGRA MS 756228 RxNorm TAKE 200 MILLIGRAM S ORAL ONCE A DAY Primidone 50MG Oral Tablet 02/20/2023 Unknown ORAL DAILY AT 1200 125 MILLIGRA MS 144607 RxNorm TAKE 125 MILLIGRAM S ORAL DAILY AT 1200 Symbicort 160/4.5 160MCG-4.5MCG/1 Actu Inhalation Aerosol Liquid 02/20/2023 Unknown INHALATION TWICE A DAY 2 unit(s) 1872498 RxNorm 2 EACH INHALATIO N TWICE A [...] Date Status Code Code System DIARRHEA active 46355708 SNOMED-CT CONTACT WITH AND (SUSPECTED) EXPOSURE TO COVID-19 active 493829699 SNOMED- CT ENCOUNTER FOR SCREENING FOR COVID-19 active 946015573 SNOMED-CT Allergies and Adverse Reactions Allergy Substance Reaction Severity Start Date Concern Status Code Code System SULFA (sulfonamide) FOOT WENT TO SLEEP (SNOMED-CT: null) Moderate Active 33983120 SNOMED-CT BIAXIN ANGIOEDEMA (SNOMED-CT: null) Moderate Active 634594 RxNorm PENICILLIN ANGOIEDEMA (SNOMED-CT: null) Moderate Active Plan of Treatment Hai Established Patient 026 US Echo With Color (03092) 07/12/2025 CT Chest CA Screen (90380) 07/21/2025 Encounters Encounter Diagnosis Start Date Code Code Sys tem Encounter for screening mamm ogram for malignant neoplasm of breast 11/25/2024 SNOMED-CT Personal Care Team Section Performer Name Performer Role Active Date Inactive GLADYS Church PCP - Primary care physician 2021-03-02 2022-04-01 SANDRA GONZALEZ PCP - Primary care physician 2022-04-01 Imaging Narrative Notes [facility] 11/28/2024 09:[address] [address] ---------NAME--------- NUMBER SEX AGE ADMIT DISC. XRAY# F/C TYPE KANDISFlakita HADLEY HUSSEIN [id number] F 59 11/25/24 11/25/24 89583 MB3 O/P DATE OF : 1965 M/R# [id number] #: [phone] RM LOCATION: TRANSCRIBED: 11/28/24 9:08 DIG 3D JE SCREENING [id number] COMPLETED:11/25/24 10:50 [facility] [id number] (REASONS-DIG 3D JE SCREENING BILATERAL: SCREENING PHYSICIAN: YVONNETTENERO RADIOLOGY REPORT PROCEDURE: SCREENING MAMMOGRAM WITH TOMOSYNTHESIS REASON FOR EXAM: Screening mammogram. COMPARISON: DIG 3D JE SCREENING BILATERAL on DOS: 06/08/23, DIG 3D JE DIAG R UNILATERA on DOS: 05/07/22, DIG 3D JE SCREENING BILATERAL on DOS: 12/24/21 TECHNIQUE: Bilateral CC and MLO views obtained. Images were obtained using a Digital Tomosynthesis Unit. Standard 2D and 3D Tomosynthesis images were reviewed. This examination was analyzed using Sw[employer] Mobile DBT/MMG in addition to a radiologist review, an AI software developed to enhance the effectiveness of breast cancer screening with mammography. FINDINGS: BREAST COMPOSITION: A - The breasts are almost entirely fatty. In the right breast, no asymmetrical parenchymal pattern, architectural distortion, pleomorphic microcalcifications or masses. In the left breast, no asymmetrical parenchymal pattern, architectural distortion, pleomorphic microcalcifications or masses. IMPRESSION: No mammographic evidence of malignancy. RECOMMENDATION: Recommend annual mammogram. ASSESSMENT: BIRADS: 1 - Negative AL REPRESENTATIVE Reviewed and Electronically Signed by: GEN RIZVI Signed Date: SIGNDATE [facility] 11/25/2024 11:03 [facility] [address] [place] [address] ---------NAME--------- NUMBER SEX AGE ADMIT DISC. XRAY# F/C TYPE ARTIE HUSSEIN [id number] F 59 11/25/24 11/25/24 13892 MB3 O/P DATE OF : 1965 M/R# [id number] #: [id number] RM LOCATION: TRANSCRIBED: 11/25/24 11:01 BONE DENSITY STUDY DEXA HIP [id number] COMPLETED:11/25/24 10:36 [facility] [id number] {REASON-BONE DENSITY: POSTMENOPAUSAL PHYSICIAN: EMMA RADIOLOGY REPORT INDICATION: POSTMENOPAUSAL DEXA SCAN: BONE DENSITY REPORT: AP SPINE (L1-L4) : T Score: -0.2 LEFT FEMORAL NECK : T Score: -1.2 LEFT HIP TOTAL : T Score: -1.8 IMPRESSION: Osteopenia left femur *FRAX version 3.08. Fracture probability calculated for an untreated patient. Fracture probability may be lower if the patient has received treatment. T-score: comparison by standard deviation (SD) to a young adult population, matched for sex and ethnicity (used for postmenopausal women and men >50 years) and classified by WHO criteria. -1.0: normal <-1.0 to >-2.5: osteopenia -2.5: osteoporosis -2.5 plus fragility fracture: severe osteoporosis Z-score: compared by SD to an age, sex, and ethnicity population (used for premenopausal women, men <50 years, and children instead of T-score WHO criteria 4) <-2.0: below expected range/low bone density for age, and a cause should be sought AL REPRESENTATIVE Reviewed and Electronically Signed by: García Barragan MD Signed Date: 11/25/24 11:01 [facility] 11/25/2024 14:[address] [address] ---------NAME--------- NUMBER SEX AGE ADMIT DISC. XRAY# F/C TYPE KANDISFlakita HADLEY HUSSEIN [id number] F 59 11/25/24 11/25/24 04025 MB3 O/P DATE OF : 1965 M/R# [id number] PH#: [phone] LOCATION: TRANSCRIBED: 11/25/24 14:31 DIG 3D JE DIAG BILATERAL [id number] STOP: 11/25/24 25:25 [id number] (REASON-DIG 3D JE DIAG BILATERAL: SCREENING PHYSICIAN: EMMA RADIOLOGY REPORT PROCEDURE: SCREENING MAMMOGRAM WITH TOMOSYNTHESIS REASON FOR EXAM: SCREENING COMPARISON: DIG 3D JE SCREENING BILATERAL on DOS: 06/08/23, DIG 3D JE DIAG R UNILATERA on DOS: 05/07/22, DIG 3D JE SCREENING BILATERAL on DOS: 12/24/21 TECHNIQUE: Bilateral CC and MLO views obtained. Images were obtained using a Digital Tomosynthesis Unit. Standard 2D and 3D Tomosynthesis images were reviewed. This examination was analyzed using Sw[employer] Mobile DBT/MMG in addition to a radiologist review, an AI software developed to enhance the effectiveness of breast cancer screening with mammography. FINDINGS: BREAST COMPOSITION: A - The breasts are almost entirely fatty. In the right breast, no asymmetrical parenchymal pattern, architectural distortion, pleomorphic microcalcifications or masses. In the left breast, no asymmetrical parenchymal pattern, architectural distortion, pleomorphic microcalcifications or masses. IMPRESSION: No findings of malignancy. RECOMMENDATION: Recommend annual mammogram. ASSESSMENT: BIRADS: 1 - Negative AL REPRESENTATIVE Reviewed and Electronically Signed by: CLARITZANAMMis RIZVI Signed Date: SIGNDATE
--- OUTSIDE RECORDS SUMMARY | 2025-06-28 17:46 | XMS_ITS ---
Author Organization Unknown Address [address] [place] [address] [phone] Phone Care Team Providers Care Injection Molding Machine Setter Name Role Phone EMMA BENAVIDEZIE Attending Unavailable CARLOS Cifuentes Primary Unavailable Immunization Immunization Date Status Additional Notes Code Code System Influenza, split virus, trivalent, preservative 05/09/2013 Completed 141 CVX COVID-19, mRNA, LNP-S, PF, 3 0 mcg/0.3 mL dose 03/21/2021 Completed 208 CVX COVID-19, mRNA, LNP-S, PF, 3 0 mcg/0.3 mL dose 04/11/2021 Completed 208 CVX Results CHEST 2V - Completed: 2023 08:38 LOINC: EXAM DESCRIPTION: CHEST 2V REASON FOR STUDY: SOB, CHEST CONGESTION, DIFFICULT/HEAVY BREATHING HX COPD, PNEUMONIA Duration: 5 DAYS Smoking History: FORMER SMOKER X 1 YR FINDINGS: Two views compared to January 18, 2024 demonstrate a normal heart size, no focal consolidation and no pleural effusions. I do suspect pulmonary emphysema with chronic interstitial thickening. IMPRESSION: No acute radiographic abnormality. THIS IS AN ELECTRONICALLY VERIFIED FINAL REPORT 03/16/2024 7:55 AM - Electronically signed by Samy Hayes M.D. SN: SN Report ID: [id number] Reading Location: [id number] Social History Type Status Start Date End Date Code Code Syst em Smoking History Current every day smoker [id number] SNOMED CT Sex Female Medications Medication Start Date End Date Route Frequency Dose Code Code System Medication Instructions Home Meds Levothyroxine Sodium 112MCG Oral Tablet 08/19/2018 Unknown ORAL ONCE A DAY 112 MCG 643062 RxNorm TAKE 112 MCG ORAL ONCE A DAY Omeprazole 40MG Oral Capsule, Delayed Release 08/19/2018 Unknown ORAL ONCE A DAY 40 MILLIGRA MS 937952 RxNorm TAKE 40 MILLIGRAM S ORAL ONCE A DAY predniSONE 10MG Oral Tablet 02/20/2023 Unknown ORAL DAILY WITH MEAL 20 MILLIGRA MS 668510 RxNorm TAKE 20 MILLIGRAM S ORAL DAILY WITH MEAL FOR 5 DAYS FOLLOWED BY 10 MG PO FAILY FOR 5 DAYS ARIPiprazole 15MG Oral Tablet 02/20/2023 Unknown ORAL ONCE A DAY 15 MILLIGRA MS 882714 RxNorm TAKE 15 MILLIGRAM S ORAL ONCE A DAY FLUoxetine 20MG Oral Capsule 02/20/2023 Unknown ORAL ONCE A DAY 20 MILLIGRA MS 464173 RxNorm TAKE 20 MILLIGRAM S ORAL ONCE A DAY Famotidine 40MG Oral Tablet 02/20/2023 Unknown ORAL AT BEDTIME 40 MILLIGRA MS 557676 RxNorm TAKE 40 MILLIGRAM S ORAL AT BEDTIME Fludrocortisone Acetate 0.1MG Oral Tablet 02/20/2023 Unknown ORAL ONCE A DAY 0.1 MILLIGRA MS 112179 RxNorm TAKE 0.1 MILLIGRAM S ORAL ONCE A DAY HYDROcodone bitartrate-aceta minophen 10MG-300MG Oral Tablet 02/20/2023 Unknown ORAL NEEDED EVERY 6 HOURS 1 TABLET 051063 RxNorm TAKE 1 TABLET ORAL NEEDED EVERY [...] Unknown INHALATION ONCE A DAY 1 unit(s) 8598656 RxNorm 1 EACH INHALATIO N ONCE A DAY Potassium Chloride 10MEQ Oral Capsule, Extended Release 02/20/2023 Unknown ORAL ONCE A DAY 10 MEQ 657141 RxNorm TAKE 10 MEQ ORAL ONCE A DAY Primidone 50MG Oral Tablet 02/20/2023 Unknown ORAL AT BEDTIME 125 MILLIGRA MS 994842 RxNorm TAKE 125 MILLIGRAM S ORAL AT BEDTIME Primidone 50MG Oral Tablet 02/20/2023 Unknown ORAL ONCE A DAY 200 MILLIGRA MS 727438 RxNorm TAKE 200 MILLIGRAM S ORAL ONCE A DAY Primidone 50MG Oral Tablet 02/20/2023 Unknown ORAL DAILY AT 1200 125 MILLIGRA MS 392609 RxNorm TAKE 125 MILLIGRAM S ORAL DAILY AT 1200 Symbicort 160/4.5 160MCG-4.5MCG/1 Actu Inhalation Aerosol Liquid 02/20/2023 Unknown INHALATION TWICE A DAY 2 unit(s) 8326047 RxNorm 2 EACH INHALATIO N TWICE A [...] Date Status Code Code System DIARRHEA active 21792860 SNOMED-CT CONTACT WITH AND (SUSPECTED) EXPOSURE TO COVID-19 active 278298848 SNOMED- CT ENCOUNTER FOR SCREENING FOR COVID-19 active 414006371 SNOMED-CT Allergies and Adverse Reactions Allergy Substance Reaction Severity Start Date Concern Status Code Code System SULFA (sulfonamide) FOOT WENT TO SLEEP (SNOMED-CT: null) Moderate Active 28786604 SNOMED-CT BIAXIN ANGIOEDEMA (SNOMED-CT: null) Moderate Active 630514 RxNorm PENICILLIN ANGOIEDEMA (SNOMED-CT: null) Moderate Active Plan of Treatment Arvinulfmirna Established Patient 026 US Echo With Color (78087) 07/12/2025 CT Chest CA Screen (92513) 07/21/2025 Encounters Encounter Diagnosis Start Date Code Code Sys tem Dyspnea 03/15/2024 803808227 SNOMED-CT Personal Care Team Section Performer Name Performer Role Active Date Inactive GLADYS Church PCP - Primary care physician 2021-03-02 2022-04-01 SANDRA GONZALEZ PCP - Primary care physician 2022-04-01 Imaging Narrative Notes
--- OUTSIDE RECORDS SUMMARY | 2025-06-28 17:47 | XMS_ITS ---
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 Name Role Phone EMMA BENAVIDEZIE Attending Unavailable CARLOS Cifuentes Primary Unavailable Immunization Immunization Date Status Additional Notes Code Code System Influenza, split virus, trivalent, preservative 05/09/2013 Completed 141 CVX COVID-19, mRNA, LNP-S, PF, 3 0 mcg/0.3 mL dose 03/21/2021 Completed 208 CVX COVID-19, mRNA, LNP-S, PF, 3 0 mcg/0.3 mL dose 04/11/2021 Completed 208 CVX Results CHEST 2V - Completed: 2023 14:41 LOINC: EXAM DESCRIPTION: CHEST 2V REASON FOR STUDY: Shortness of Breath HX COPD Pt on Oxygen Comparison 03-18-23 Duration: 2 days TECHNIQUE: Frontal and lateral radiographic view(s) of the chest. COMPARISON: 03/18/2023 FINDINGS: The heart, mediastinum, and pulmonary vasculature are grossly stable. The lungs are mildly hyperinflated. There is no definite evidence of a pneumothorax. There is no definite evidence of a focal consolidation or pleural effusion. There are mild patchy bibasilar airspace opacities. The osseous structures are acutely grossly stable. IMPRESSION: ? ? Mildly hyperinflated lungs with mild patchy bibasilar airspace opacities, which is likely related to subsegmental atelectasis and scarring. No definite evidence of focal consolidation. THIS IS AN ELECTRONICALLY VERIFIED FINAL REPORT 01/18/2024 2:39 PM - Electronically signed by Viraj Anthony D.O. PS: PS Report ID: [id number] Reading Location: [id number] Social History Type Status Start Date End Date Code Code Syst em Smoking History Current every day smoker 970373800 SNOMED CT Sex Female Medications Medication Start Date End Date Route Frequency Dose Code Code System Medication Instructions Home Meds Levothyroxine Sodium 112MCG Oral Tablet 08/19/2018 Unknown ORAL ONCE A DAY 112 MCG 250680 RxNorm TAKE 112 MCG ORAL ONCE A DAY Omeprazole 40MG Oral Capsule, Delayed Release 08/19/2018 Unknown ORAL ONCE A DAY 40 MILLIGRA MS 761322 RxNorm TAKE 40 MILLIGRAM S ORAL ONCE A DAY predniSONE 10MG Oral Tablet 02/20/2023 Unknown ORAL DAILY WITH MEAL 20 MILLIGRA MS 682763 RxNorm TAKE 20 MILLIGRAM S ORAL DAILY WITH MEAL FOR 5 DAYS FOLLOWED BY 10 MG PO FAILY FOR 5 DAYS ARIPiprazole 15MG Oral Tablet 02/20/2023 Unknown ORAL ONCE A DAY 15 MILLIGRA MS 211106 RxNorm TAKE 15 MILLIGRAM S ORAL ONCE A DAY FLUoxetine 20MG Oral Capsule 02/20/2023 Unknown ORAL ONCE A DAY 20 MILLIGRA MS 593204 RxNorm TAKE 20 MILLIGRAM S ORAL ONCE A DAY Famotidine 40MG Oral Tablet 02/20/2023 Unknown ORAL AT BEDTIME 40 MILLIGRA MS 209007 RxNorm TAKE 40 MILLIGRAM S ORAL AT BEDTIME Fludrocortisone Acetate 0.1MG Oral Tablet 02/20/2023 Unknown ORAL ONCE A DAY 0.1 MILLIGRA MS 025013 RxNorm TAKE 0.1 MILLIGRAM S ORAL ONCE A DAY HYDROcodone bitartrate-aceta minophen 10MG-300MG Oral Tablet 02/20/2023 Unknown ORAL NEEDED EVERY 6 HOURS 1 TABLET 567847 RxNorm TAKE 1 TABLET ORAL NEEDED EVERY [...] Unknown INHALATION ONCE A DAY 1 unit(s) 5269580 RxNorm 1 EACH INHALATIO N ONCE A DAY Potassium Chloride 10MEQ Oral Capsule, Extended Release 02/20/2023 Unknown ORAL ONCE A DAY 10 MEQ 507073 RxNorm TAKE 10 MEQ ORAL ONCE A DAY Primidone 50MG Oral Tablet 02/20/2023 Unknown ORAL AT BEDTIME 125 MILLIGRA MS 959273 RxNorm TAKE 125 MILLIGRAM S ORAL AT BEDTIME Primidone 50MG Oral Tablet 02/20/2023 Unknown ORAL ONCE A DAY 200 MILLIGRA MS 256489 RxNorm TAKE 200 MILLIGRAM S ORAL ONCE A DAY Primidone 50MG Oral Tablet 02/20/2023 Unknown ORAL DAILY AT 1200 125 MILLIGRA MS 893335 RxNorm TAKE 125 MILLIGRAM S ORAL DAILY AT 1200 Symbicort 160/4.5 160MCG-4.5MCG/1 Actu Inhalation Aerosol Liquid 02/20/2023 Unknown INHALATION TWICE A DAY 2 unit(s) 7386894 RxNorm 2 EACH INHALATIO N TWICE A [...] Date Status Code Code System DIARRHEA active 80574106 SNOMED-CT CONTACT WITH AND (SUSPECTED) EXPOSURE TO COVID-19 active 050437629 SNOMED- CT ENCOUNTER FOR SCREENING FOR COVID-19 active 601597150 SNOMED-CT Allergies and Adverse Reactions Allergy Substance Reaction Severity Start Date Concern Status Code Code System SULFA (sulfonamide) FOOT WENT TO SLEEP (SNOMED-CT: null) Moderate Active 79162839 SNOMED-CT BIAXIN ANGIOEDEMA (SNOMED-CT: null) Moderate Active 403875 RxNorm PENICILLIN ANGOIEDEMA (SNOMED-CT: null) Moderate Active Plan of Treatment Hia Established Patient 026 US Echo With Color (58921) 07/12/2025 CT Chest CA Screen (93652) 07/21/2025 Encounters Encounter Diagnosis Start Date Code Code Sys tem Lung field abnormal 01/18/2024 260891274 SNOMED-C T Personal Care Team Section Performer Name Performer Role Active Date Inactive Da GLADYS Casiano PCP - Primary care physician 2021-03-02 2022-04-01 SANDRA GONZALEZ PCP - Primary care physician 2022-04-01 Imaging Narrative Notes
--- OUTSIDE RECORDS SUMMARY | 2025-06-28 17:47 | XMS_ITS ---
Author Organization Unknown Address [address] [place] [address] [phone] Phone Care Team Providers Care Hangersmith Name Role Phone BITA WRIGHT MANAGER [employer]CIAL [employer]ANNING Attending Unavailable CARLOS Cifuentes Primary Unavailable Immunization Immunization Date Status Additional Notes Code Code System Influenza, split virus, trivalent, preservative 05/09/2013 Completed 141 CVX COVID-19, mRNA, LNP-S, PF, 3 0 mcg/0.3 mL dose 03/21/2021 Completed 208 CVX COVID-19, mRNA, LNP-S, PF, 3 0 mcg/0.3 mL dose 04/11/2021 Completed 208 CVX Results DIG 3D JE SCREENING BILATER AL - Completed: 06/08/2023 09:33 LOINC: See Scanned Image Attachment for Report Dictated By: Trans Initials: BG Trans Date: 06/09/23 11:17 <<REPDIST>> Social History Type Status Start Date End Date Code Code Syst em Smoking History Current every day smoker 930815864 SNOMED CT Sex Female Medications Medication Start Date End Date Route Frequency Dose Code Code System Medication Instructions Home Meds Levothyroxine Sodium 112MCG Oral Tablet 08/19/2018 Unknown ORAL ONCE A DAY 112 MCG 435834 RxNorm TAKE 112 MCG ORAL ONCE A DAY Omeprazole 40MG Oral Capsule, Delayed Release 08/19/2018 Unknown ORAL ONCE A DAY 40 MILLIGRA MS 20020911 RxNorm TAKE 40 MILLIGRAM S ORAL ONCE A DAY predniSONE 10MG Oral Tablet 02/20/2023 Unknown ORAL DAILY WITH MEAL 20 MILLIGRA MS 907359 RxNorm TAKE 20 MILLIGRAM S ORAL DAILY WITH MEAL FOR 5 DAYS FOLLOWED BY 10 MG PO FAILY FOR 5 DAYS ARIPiprazole 15MG Oral Tablet 02/20/2023 Unknown ORAL ONCE A DAY 15 MILLIGRA MS 324238 RxNorm TAKE 15 MILLIGRAM S ORAL ONCE A DAY FLUoxetine 20MG Oral Capsule 02/20/2023 Unknown ORAL ONCE A DAY 20 MILLIGRA MS 093664 RxNorm TAKE 20 MILLIGRAM S ORAL ONCE A DAY Famotidine 40MG Oral Tablet 02/20/2023 Unknown ORAL AT BEDTIME 40 MILLIGRA MS 664899 RxNorm TAKE 40 MILLIGRAM S ORAL AT BEDTIME Fludrocortisone Acetate 0.1MG Oral Tablet 02/20/2023 Unknown ORAL ONCE A DAY 0.1 MILLIGRA MS 500042 RxNorm TAKE 0.1 MILLIGRAM S ORAL ONCE A DAY HYDROcodone bitartrate-aceta minophen 10MG-300MG Oral Tablet 02/20/2023 Unknown ORAL NEEDED EVERY 6 HOURS 1 TABLET 814442 RxNorm TAKE 1 TABLET ORAL NEEDED EVERY [...] Unknown INHALATION ONCE A DAY 1 unit(s) 8535812 RxNorm 1 EACH INHALATIO N ONCE A DAY Potassium Chloride 10MEQ Oral Capsule, Extended Release 02/20/2023 Unknown ORAL ONCE A DAY 10 MEQ 101013 RxNorm TAKE 10 MEQ ORAL ONCE A DAY Primidone 50MG Oral Tablet 02/20/2023 Unknown ORAL AT BEDTIME 125 MILLIGRA MS 389440 RxNorm TAKE 125 MILLIGRAM S ORAL AT BEDTIME Primidone 50MG Oral Tablet 02/20/2023 Unknown ORAL ONCE A DAY 200 MILLIGRA MS 449200 RxNorm TAKE 200 MILLIGRAM S ORAL ONCE A DAY Primidone 50MG Oral Tablet 02/20/2023 Unknown ORAL DAILY AT 1200 125 MILLIGRA MS 370540 RxNorm TAKE 125 MILLIGRAM S ORAL DAILY AT 1200 Symbicort 160/4.5 160MCG-4.5MCG/1 Actu Inhalation Aerosol Liquid 02/20/2023 Unknown INHALATION TWICE A DAY 2 unit(s) 8603575 RxNorm 2 EACH INHALATIO N TWICE A [...] Date Status Code Code System DIARRHEA active 06876259 SNOMED-CT CONTACT WITH AND (SUSPECTED) EXPOSURE TO COVID-19 active 722827531 SNOMED- CT ENCOUNTER FOR SCREENING FOR COVID-19 active 252629514 SNOMED-CT Allergies and Adverse Reactions Allergy Substance Reaction Severity Start Date Concern Status Code Code System SULFA (sulfonamide) FOOT WENT TO SLEEP (SNOMED-CT: null) Moderate Active 24066723 SNOMED-CT BIAXIN ANGIOEDEMA (SNOMED-CT: null) Moderate Active 616565 RxNorm PENICILLIN ANGOIEDEMA (SNOMED-CT: null) Moderate Active Plan of Treatment Hai Established Patient 026 US Echo With Color (36380) 07/12/2025 CT Chest CA Screen (13605) 07/21/2025 Encounters Encounter Diagnosis Start Date Code Code Sys tem Screening mammography 06/08/2023 [id number] SNOMED -CT Personal Care Team Section Performer Name Performer Role Active Date Inactive GLADYS Church PCP - Primary care physician 2021-03-02 2022-04-01 SANDRA GONZALEZ PCP - Primary care physician 2022-04-01 Imaging Narrative Notes [facility] 06/09/2023 11:[address] [address] RADIOLOGY REPORT Patient Number: [id number] Patient Name: ARTIE HUSSEIN Type: O/P MR Number: [id number] : 1965 Age: 58 Sex: F Room #: Admit Date: 06/08/23 Discharge Date 06/08/23 Ordering Physician: BITA WRIGHT Family Physician: CARLOS BEAUCHAMP Second Physician: X-Ray Number : [id number] DIG 3D JE SCREENING BILATERA 73714 COMPLETE:06/08/23 09:33 [id number] (REASONS-DIG 3D JE SCREENING BILATERAL: SCREENING See Scanned Image Attachment for Report Dictated By: Yandel Initials: Trans Date: 06/09/23 11:17 <<REPDIST>>
--- OUTSIDE RECORDS SUMMARY | 2025-06-28 17:47 | XMS_ITS ---
Author Organization Unknown Address [address] [place] [address] [phone] Phone Care Team Providers Care Marine Pilot Name Role Phone WARRENKelton LUIS ARMANDO Attending [...] em Smoking History Current every day smoker [id number] SNOMED CT Sex Female Medications Medication Start Date End Date Route Frequency Dose Code Code System Medication Instructions Home Meds Levothyroxine Sodium 112MCG Oral Tablet 08/19/2018 Unknown ORAL ONCE A DAY 112 MCG 429192 RxNorm TAKE 112 MCG ORAL ONCE A DAY Omeprazole 40MG Oral Capsule, Delayed Release 08/19/2018 Unknown ORAL ONCE A DAY 40 MILLIGRA MS 443422 RxNorm TAKE 40 MILLIGRAM S ORAL ONCE A DAY predniSONE 10MG Oral Tablet 02/20/2023 Unknown ORAL DAILY WITH MEAL 20 MILLIGRA MS 471109 RxNorm TAKE 20 MILLIGRAM S ORAL DAILY WITH MEAL FOR 5 DAYS FOLLOWED BY 10 MG PO FAILY FOR 5 DAYS ARIPiprazole 15MG Oral Tablet 02/20/2023 Unknown ORAL ONCE A DAY 15 MILLIGRA MS 557266 RxNorm TAKE 15 MILLIGRAM S ORAL ONCE A DAY FLUoxetine 20MG Oral Capsule 02/20/2023 Unknown ORAL ONCE A DAY 20 MILLIGRA MS 864949 RxNorm TAKE 20 MILLIGRAM S ORAL ONCE A DAY Famotidine 40MG Oral Tablet 02/20/2023 Unknown ORAL AT BEDTIME 40 MILLIGRA MS 194152 RxNorm TAKE 40 MILLIGRAM S ORAL AT BEDTIME Fludrocortisone Acetate 0.1MG Oral Tablet 02/20/2023 Unknown ORAL ONCE A DAY 0.1 MILLIGRA MS 226401 RxNorm TAKE 0.1 MILLIGRAM S ORAL ONCE A DAY HYDROcodone bitartrate-aceta minophen 10MG-300MG Oral Tablet 02/20/2023 Unknown ORAL NEEDED EVERY 6 HOURS 1 TABLET 725682 RxNorm TAKE 1 TABLET ORAL NEEDED EVERY [...] Unknown INHALATION ONCE A DAY 1 unit(s) 4771300 RxNorm 1 EACH INHALATIO N ONCE A DAY Potassium Chloride 10MEQ Oral Capsule, Extended Release 02/20/2023 Unknown ORAL ONCE A DAY 10 MEQ 492079 RxNorm TAKE 10 MEQ ORAL ONCE A DAY Primidone 50MG Oral Tablet 02/20/2023 Unknown ORAL AT BEDTIME 125 MILLIGRA MS 947276 RxNorm TAKE 125 MILLIGRAM S ORAL AT BEDTIME Primidone 50MG Oral Tablet 02/20/2023 Unknown ORAL ONCE A DAY 200 MILLIGRA MS 505624 RxNorm TAKE 200 MILLIGRAM S ORAL ONCE A DAY Primidone 50MG Oral Tablet 02/20/2023 Unknown ORAL DAILY AT 1200 125 MILLIGRA MS 694372 RxNorm TAKE 125 MILLIGRAM S ORAL DAILY AT 1200 Symbicort 160/4.5 160MCG-4.5MCG/1 Actu Inhalation Aerosol Liquid 02/20/2023 Unknown INHALATION TWICE A DAY 2 unit(s) 6559347 RxNorm 2 EACH INHALATIO N TWICE A [...] Date Status Code Code System DIARRHEA active 58723652 SNOMED-CT CONTACT WITH AND (SUSPECTED) EXPOSURE TO COVID-19 active 911498204 SNOMED- CT ENCOUNTER FOR SCREENING FOR COVID-19 active 920646207 SNOMED-CT Allergies and Adverse Reactions Allergy Substance Reaction Severity Start Date Concern Status Code Code System SULFA (sulfonamide) FOOT WENT TO SLEEP (SNOMED-CT: null) Moderate Active 96322968 SNOMED-CT BIAXIN ANGIOEDEMA (SNOMED-CT: null) Moderate Active 622632 RxNorm PENICILLIN ANGOIEDEMA (SNOMED-CT: null) Moderate Active Plan of Treatment Hai Established Patient 026 US Echo With Color (88767) 07/12/2025 CT Chest CA Screen (36897) 07/21/2025 Encounters Encounter Diagnosis Start Date Code Code Sys tem Chronic obstructive pulmonary disease, unspecified SNOMED-CT Personal Care Team Section Performer Name Performer Role Active Date Inactive GLADYS Church PCP - Primary care physician 2021-03-02 2022-04-01 SANDRA GONZALEZ PCP - Primary care physician 2022-04-01 Procedures Notes [facility] 10/23/2024 18:20 Six Minute Walk DOS: 10/19/2024 Ordering Physician: Dr. Valles DX: COPD Baseline SPO2 was 88%, so O2 was applied at 2 LPM and SPO2 improved to 96%. Patient was only able to walk an additional 150 feet before stating that she needed to stop because she was tired. Patient had no complaints of shortness of breath. SPO2 did not drop below 92% on 2 LPM. Results were shared with Dr. Valles. Physician Impression: 6MWT revealed significant desaturation below 89% at rest and with walking 150 feet. Patient may benefit from using oxygen at 2LPM at rest and with physical activity.
--- OUTSIDE RECORDS SUMMARY | 2025-06-28 17:47 | XMS_ITS ---
Author Organization Unknown Address [address] [place] [address] [phone] Phone Care Team Providers Care State Tested Nursing Assistant Name Role Phone WARRENKelton LUIS ARMANDO Attending [...] COMPREHENSIVE METABOLIC PANE L - Collect Date/Time: 06/02/2025 08:43 [facility] ID: [id number] [place], [place], [phone] LOINC: 26923-4 Test Value Unit Reference Range Code Code System Flag FASTING YES BUN 39 mg/dL L=7 H=20 3094-0 LOINC H CREATININE 1.70 mg/dL L=0.52 H=1.04 2160-0 LOINC H AGE 60 02034-3 LOINC eGFR 34 GLUCOSE 87 mg/dL L=74 H=106 2345-7 LOINC SODIUM 135 mmol/L L=132 H=144 2951-2 LOINC POTASSIUM 4.6 mmol/L L=3.5 H=5.1 2823-3 LOINC CHLORIDE 90 mmol/L L=98 H=107 2075-0 LOINC L CO2 43.0 mmol/L L=22.0 H=30.0 2028-9 LOINC H ANION GAP 7 L=10 H=20 98618-8 LOINC L OSMOLALITY 289 mOs/kG L=280 H=296 26148-9 LOINC BUN/CREAT 22.9 3097-3 LOINC CALCIUM 9.1 mg/dL L=8.3 H=10.5 10096-9 LOINC AST 31 U/L L=15 H=46 1920-8 LOINC ALT 22 U/L L=9 H=72 1742-6 LOINC ALKALINE PHOS 77 U/L L=38 H=126 6768-6 LOINC TOTAL BILI 0.2 mg/dL L=0.2 H=1.3 1975-2 LOINC ALBUMIN 4.1 G/dL L=3.5 H=5.0 1751-7 LOINC TOTAL PROTEIN 6.8 g/L L=6.3 H=8.2 2885-2 LOINC A/G RATIO 1.5 50144-0 LOINC Social History Type Status Start Date End Date Code Code Syst em Smoking History Current every day smoker 968002288 SNOMED CT Sex Female Medications Medication Start Date End Date Route Frequency Dose Code Code System Medication Instructions Home Meds Levothyroxine Sodium 112MCG Oral Tablet 08/19/2018 Unknown ORAL ONCE A DAY 112 MCG 170970 RxNorm TAKE 112 MCG ORAL ONCE A DAY Omeprazole 40MG Oral Capsule, Delayed Release 08/19/2018 Unknown ORAL ONCE A DAY 40 MILLIGRA MS 759424 RxNorm TAKE 40 MILLIGRAM S ORAL ONCE A DAY predniSONE 10MG Oral Tablet 02/20/2023 Unknown ORAL DAILY WITH MEAL 20 MILLIGRA MS 545799 RxNorm TAKE 20 MILLIGRAM S ORAL DAILY WITH MEAL FOR 5 DAYS FOLLOWED BY 10 MG PO FAILY FOR 5 DAYS ARIPiprazole 15MG Oral Tablet 02/20/2023 Unknown ORAL ONCE A DAY 15 MILLIGRA MS 614591 RxNorm TAKE 15 MILLIGRAM S ORAL ONCE A DAY FLUoxetine 20MG Oral Capsule 02/20/2023 Unknown ORAL ONCE A DAY 20 MILLIGRA MS 309062 RxNorm TAKE 20 MILLIGRAM S ORAL ONCE A DAY Famotidine 40MG Oral Tablet 02/20/2023 Unknown ORAL AT BEDTIME 40 MILLIGRA MS 300473 RxNorm TAKE 40 MILLIGRAM S ORAL AT BEDTIME Fludrocortisone Acetate 0.1MG Oral Tablet 02/20/2023 Unknown ORAL ONCE A DAY 0.1 MILLIGRA MS 999857 RxNorm TAKE 0.1 MILLIGRAM S ORAL ONCE A DAY HYDROcodone bitartrate-aceta minophen 10MG-300MG Oral Tablet 02/20/2023 Unknown ORAL NEEDED EVERY 6 HOURS 1 TABLET 250484 RxNorm TAKE 1 TABLET ORAL NEEDED EVERY [...] Unknown INHALATION ONCE A DAY 1 unit(s) 5970491 RxNorm 1 EACH INHALATIO N ONCE A DAY Potassium Chloride 10MEQ Oral Capsule, Extended Release 02/20/2023 Unknown ORAL ONCE A DAY 10 MEQ 718096 RxNorm TAKE 10 MEQ ORAL ONCE A DAY Primidone 50MG Oral Tablet 02/20/2023 Unknown ORAL AT BEDTIME 125 MILLIGRA MS 014227 RxNorm TAKE 125 MILLIGRAM S ORAL AT BEDTIME Primidone 50MG Oral Tablet 02/20/2023 Unknown ORAL ONCE A DAY 200 MILLIGRA MS 614664 RxNorm TAKE 200 MILLIGRAM S ORAL ONCE A DAY Primidone 50MG Oral Tablet 02/20/2023 Unknown ORAL DAILY AT 1200 125 MILLIGRA MS 097340 RxNorm TAKE 125 MILLIGRAM S ORAL DAILY AT 1200 Symbicort 160/4.5 160MCG-4.5MCG/1 Actu Inhalation Aerosol Liquid 02/20/2023 Unknown INHALATION TWICE A DAY 2 unit(s) 6987470 RxNorm 2 EACH INHALATIO N TWICE A [...] Date Status Code Code System DIARRHEA active 89240122 SNOMED-CT CONTACT WITH AND (SUSPECTED) EXPOSURE TO COVID-19 active 366124317 SNOMED- CT ENCOUNTER FOR SCREENING FOR COVID-19 active 790661561 SNOMED-CT Allergies and Adverse Reactions Allergy Substance Reaction Severity Start Date Concern Status Code Code System SULFA (sulfonamide) FOOT WENT TO SLEEP (SNOMED-CT: null) Moderate Active 57014376 SNOMED-CT BIAXIN ANGIOEDEMA (SNOMED-CT: null) Moderate Active 810184 RxNorm PENICILLIN ANGOIEDEMA (SNOMED-CT: null) Moderate Active Plan of Treatment Hai Established Patient 026 US Echo With Color (67845) 07/12/2025 CT Chest CA Screen (44987) 07/21/2025 Encounters Encounter Diagnosis Start Date Code Code Sys tem Unspecified adverse effect o f drug or medicament, initial encounter 06/02/2025 SNOMED-CT Personal Care Team Section Performer Name Performer Role Active Date Inactive GLADYS Church PCP - Primary care physician 2021-03-02 2022-04-01 SANDRA GONZALEZ PCP - Primary care physician 2022-04-01
[2025-06-28 17:51] LABS: Influenza A QL RT-PCR Negative (Negative); Influenza B QL RT-PCR Negative (Negative); RSV RNA, RT-PCR Negative (Negative); SARS-CoV-2 RNA PCR Negative (Negative)
[2025-06-28 18:15] LABS: Thyroid Stimulating Hormone 72.000 uIU/mL (0.465-4.680)
[2025-06-28] MEDS: POTASSIUM CHLORIDE 20 MEQ PACKET (FOR LIQUID) 40 MEQ PO (18:38)
--- NOTE | 2025-06-28 19:10 | ADMGEN ---
This patient, Margarita Woods, was admitted to 2nd Floor Room 208-1. Patient oriented to hospital policies and general routines including ID bracelet, bed and alarms, visiting hours, pain management, procedures, bathroom and other care routines, personal items, smoking policy, room service/diet, and visiting hours. Information on how to activate the Rapid Response Team has been discussed. Patient are encouraged to report perceived risks to care and to ask questions if they do not understand what they are told or what they should do.
--- NOTE | 2025-06-28 19:14 | PC.NURSE ---
Patient states she lives in [place], does not like the hospital there because they sent her home and Didn't do anything for me.
[2025-06-28] MEDS: IPRATROPIUM 0.5 MG/ALBUTEROL SULFATE 2.5 MG (BASE) AMPUL.NEB 3 ML INHALATION (20:14)
[2025-06-28] MEDS: SODIUM CHLORIDE 0.9% IV 1,000 ML 75 ML IV CONT (20:15)
[2025-06-28] MEDS: HYDROcodone/acetaminophen (*CRX) 5-325 MG TABLET 1 TAB PO (21:17)
[2025-06-29] VITALS (7 sets, daily range): BP systolic 138–173; BP diastolic 69–71; PULSE 83–100; RESP 16–20; TEMP 36.5–36.6; O2SAT 88–98
[2025-06-29] MEDS: IPRATROPIUM 0.5 MG/ALBUTEROL SULFATE 2.5 MG (BASE) AMPUL.NEB 3 ML INHALATION ×3 (00:17→11:43)
[2025-06-29] MEDS: HYDROCORTISONE 10 MG TABLET PO (00:17)
--- NOTE | 2025-06-29 04:53 | PC.NURSE ---
RN asked pt about incontinence. In the beginning of the night the pt stated it is not typical, but has diarrhea and does not give her much warning. Later when pt was incontinent of urine pt is now stating this is a normal occurrence for her. Pt was asked if she has been seen by her primary for this issue to which she replied Yes, and they told me to where a depend. They didn't tell me why?
[2025-06-29] MEDS: HYDROcodone/acetaminophen (*CRX) 5-325 MG TABLET 1 TAB PO ×2 (05:06→12:46)
[2025-06-29] MEDS: ACETAMINOPHEN 325 MG TABLET 650 MG PO ×2 (05:28→09:17)
[2025-06-29] MEDS: POTASSIUM CHLORIDE 20 MEQ ER TABLET 40 MEQ PO (08:15)
[2025-06-29] MEDS: HYDROCORTISONE 5 MG TABLET 15 MG PO (08:16)
[2025-06-29 08:58] LABS: HCO3 ABG 32.8 mmol/L (23-29); Oxygen Saturation ABG 91.3 % (95-97); PCO2 ABG 53.5 mmHg (35-45); PO2 ABG 61.6 mmHg (80-90)
[2025-06-29 09:00] LABS: Hematocrit 35.3 % (35.0-49.0); Hemoglobin 11.5 g/dL (12.0-15.0); Immature Granulocyte Percent A 0.5 % (0.0-0.0); Liters per Minute 2.0 LPM; Lymphocytes Absolute Auto 0.51 K/mm3 (1.10-4.50); Mean Corpuscular HGB Conc 32.6 g/dL (32-36); Mean Corpuscular Hemoglobin 32.9 pg (27.0-31.0); Mean Corpuscular Volume 100.9 fL (78.0-102.0); Modified Allen's Test Pass; Nucleated Red Blood Cells Absolute Auto 0.00 K/mm3 (0.00-0.00); Nucleated Red Blood Cells Perc 0.0 % (0-0.0); Platelet Count Result 423 K/mm3 (150-420); Red Blood Count 3.50 M/mm3 (4.20-5.40); Site Drawn LEFT RADIAL; White Blood Count 11.5 K/mm3 (4.8-10.8)
[2025-06-29 09:14] LABS: Alanine Aminotransferase 53 U/L (6-35); Albumin Level 4.5 g/dL (3.5-5.1); Alkaline Phosphatase 63 U/L (38-126); Anion Gap 10 mmol/L (4-12); Aspartate Amino Transferase 59 U/L (14-36); Bilirubin,Total 0.2 mg/dL (0.2-1.3); Blood Urea Nitrogen 9 mg/dL (7-17); Calcium 9.0 mg/dL (8.4-10.2); Carbon Dioxide 37 mmol/L (22-30); Chloride 82 mmol/L (98-107); Estimated CRCL calculation 49 ml/min; Estimated Glomerular Filt Rate 46; Glucose 201 mg/dL (65-110); Osmolality Calculated 272 mOsm/kg (285-295); Potassium 4.0 mmol/L (3.4-5.0); Sodium 129 mmol/L (137-145); Total Protein 7.3 g/dL (6.3-8.2)
[2025-06-29] MEDS: FAMOTIDINE 20 MG TABLET 40 MG PO (09:21)
[2025-06-29] MEDS: LEVOTHYROXINE SODIUM 100 MCG, LEVOTHYROXINE SODIUM 25 MCG 125 MCG PO (09:44)
[2025-06-29 09:51] LABS: Toxigenic C. Diff NEGATIVE (NEGATIVE)
--- NOTE | 2025-06-29 12:06 | PM.SD2 ---
Same Day Admit/Disch: HPI History of Present Illness Chief complaint: COPD EXACERBATION ACUTE HYPOXIC RESP FAILURE HYPOK Narrative: Margarita Woods is a 60 year old female with PMH of COPD, hypothyroidism, CHF and essential tremors. Patient denies alcohol intake, quit smoking 3 years ago, endorses daily marijuana use. Patient presented to ER with complaints of a 10 pound weight gain over the last 3 days, sleepiness and intermittent lower leg cramps for months. Patient reports she was seen at another hospital 3 times over the last few weeks without a specific diagnosis and no admission. Patient was also seen by her PCP 2 days ago without any medication changes or recommendations. In the ER the patient's lab work showed a sodium level of 128, potassium 3.2, creatinine 1.2, BNP 54, TSH 72. Patient normally goes to [facility] so there are no old labs for comparison. Patient's chest x-ray showed mild CHF. Patient was admitted for observation. [facility] Social History Social History Smoking status: Former smoker Alcohol intake: never Substance use: current Substance use type: marijuana Other substance usage details: Gummies at night Last use: Yesterday Lack of Transportation: No Lack of Food: Never True Current Housing: I Have Housing Concerned About Future Housing: No Difficulty Paying Gas/Electric Bills: No Difficulty Paying for Meds: No Currently Unemployed: No Education: Trade/Vocational Certificate Difficulty w/ Childcare or Family Care: No Spiritual care concerns: No Same Day Admit/Disch: Med Pre-admit Medications Home Medications ?Medication ?Instructions ?Recorded ?Confirmed ?Type albuterol sulfate 2.5 mg/3 mL 2.5 mg inhalation Q4H PRN 06/28/25 06/28/25 History (0.083 %) solution for nebulization shortness of breath or wheezing albuterol sulfate 90 mcg/actuation 2 puff inhalation Q4H PRN 06/28/25 06/28/25 History aerosol inhaler shortness of breath or wheezing aripiprazole 15 mg tablet 15 mg PO DAILY 06/28/25 06/28/25 History famotidine 40 mg tablet 40 mg PO DAILY 06/28/25 06/28/25 History fludrocortisone 0.1 mg tablet 0.1 mg PO .oral 06/28/25 06/28/25 History fluoxetine 40 mg capsule 40 mg PO QPM 06/28/25 06/28/25 History furosemide 20 mg tablet 20 mg PO DAILY 06/28/25 06/28/25 History hydrocodone 10 mg-acetaminophen 1 tablet PO Q6H PRN pain 06/28/25 06/28/25 History 325 mg tablet hydrocortisone 5 mg tablet 5 mg PO DAILY 06/28/25 06/28/25 History primidone 50 mg tablet 50 mg PO DAILY 06/28/25 06/28/25 History tizanidine 4 mg tablet 4 mg PO DAILY 06/28/25 06/28/25 History levothyroxine 125 mcg tablet 125 mcg PO DAILY@0630 #30 tabs 06/29/25 Rx (Synthroid) potassium chloride 20 mEq 20 meq PO DAILY #30 tabs 06/29/25 Rx tablet,extended release(part/cryst) (Cait Summers) Review of Systems Review of Systems All systems reviewed & are unremarkable except as noted in HPI and below Exam Const: General: comfortable and no acute distress HENMT: Face/Nose/Sinus: Normal nares present Mouth: Yes moist mucous membranes Eyes: General: appearance normal, both eyes and all related structures Sclera: sclerae normal Neck: Neck: supple Resp: Effort & Inspection: normal respiratory effort Auscultation: clear to auscultation bilaterally Cardio: Rate: regular rate Rhythm: regular rhythm GI: GI Palp: Yes Soft to palpation Auscultation: normal bowel sounds Skin: General skin exam: normal color and no rashes or lesions noted Neuro: General: gait normal Speech: normal speech Motor exam (neuro): 5/5 motor strength present throughout Sensory Exam: normal sensation Extrem: Other: 1+ edema BLE Psych: Mental Status: mental status grossly normal Affect: normal affect DS: Data Data Completed and Pending Labs on day of discharge: Labs from last 24 hours 06/29/25 06/29/25 06/28/25 09:00 08:55 17:08 WBC 11.5 H 9.7 RBC 3.50 L 3.33 L Hgb 11.5 L 10.8 L Hct 35.3 33.4 L MCV 100.9 100.3 MCH 32.9 H 32.4 H MCHC 32.6 32.3 RDW 15.4 H 15.4 H Plt Count 423 H 361 MPV 8.8 L 8.4 L Immature Gran % (Auto) 0.5 H 0.4 H Neut % (Auto) 94.2 H 70.8 H Lymph % (Auto) 4.4 L 23.6 Meade % (Auto) 0.6 L 3.7 Eos % (Auto) 0.2 L 1.2 Baso % (Auto) 0.1 0.3 Lymph # (Auto) 0.51 L 2.28 Meade # (Auto) 0.07 L 0.36 Eos # (Auto) 0.02 0.12 Baso # (Auto) 0.01 0.03 Abs Immat Gran (auto) 0.06 H 0.04 H Absolute Neuts (auto) 10.86 H 6.82 Absolute Nucleated RBC 0.00 0.00 Nucleated RBC % 0.0 0.0 PT 9.8 INR 0.9 APTT 30.2 Puncture Site Left radial Right radial ABG pH 7.41 7.44 ABG pCO2 53.5 H 61.7 H ABG pO2 61.6 L 49.8 L ABG HCO3 32.8 H 41.3 H ABG O2 Saturation 91.3 L 88.1 L ABG Base Excess 6.8 H 14.7 H Oxyhemoglobin 90.8 L 87.1 L O2 Delivery Device Nasal cannula Nasal cannula O2 Liters/Min 2.0 2.0 Sodium 129 L 128 L Potassium 4.0 3.2 L Chloride 82 L 77 L Carbon Dioxide 37 H > 40 H Anion Gap 10 10.07184 BUN 9 9 Creatinine 1.19 H 1.29 H Estim Creat Clear Calc 49 45 Estimated GFR 46 L 42 L Glucose 201 H 91 Calculated Osmolality 272 L 264 L Calcium 9.0 8.9 Magnesium 2.0 Total Bilirubin 0.2 0.1 L AST 59 H 42 H ALT 53 H 27 Alkaline Phosphatase 63 69 Troponin I < 0.012 NT-Pro-B Natriuret Pep 54 Total Protein 7.3 6.8 Albumin 4.5 4.1 TSH C. difficile (PCR) Negative Influenza A (RT-PCR) Influenza B (RT-PCR) RSV (RT-PCR) SARS-CoV-2 RNA (RT-PCR) 06/28/25 06/28/25 17:07 17:00 WBC RBC Hgb Hct MCV MCH MCHC RDW Plt Count MPV Immature Gran % (Auto) Neut % (Auto) Lymph % (Auto) Meade % (Auto) Eos % (Auto) Baso % (Auto) Lymph # (Auto) Meade # (Auto) Eos # (Auto) Baso # (Auto) Abs Immat Gran (auto) Absolute Neuts (auto) Absolute Nucleated RBC Nucleated RBC % PT INR APTT Puncture Site ABG pH ABG pCO2 ABG pO2 ABG HCO3 ABG O2 Saturation ABG Base Excess Oxyhemoglobin O2 Delivery Device O2 Liters/Min Sodium Potassium Chloride Carbon Dioxide Anion Gap BUN Creatinine Estim Creat Clear Calc Estimated GFR Glucose Calculated Osmolality Calcium Magnesium Total Bilirubin AST ALT Alkaline Phosphatase Troponin I NT-Pro-B Natriuret Pep Total Protein Albumin TSH 72.000 H C. difficile (PCR) Influenza A (RT-PCR) Negative Influenza B (RT-PCR) Negative RSV (RT-PCR) Negative SARS-CoV-2 RNA (RT-PCR) Negative Imaging Radiologist's impression: Ordering Physician: Lori Vidales MD Date of Service: 06/28/25 Procedure(s): XR chest 1V portable Accession Number(s): [id number] cc: Ashly, Kevin Viera MD; Lori Vidales MD~ EXAMINATION: XR chest 1V portable COMPARISON: No comparisons available. HISTORY: Shortness of breath/HX OF COPD AND CHF FINDINGS: Mild pulmonary venous congestion. Small basilar infiltrates. No pneumothorax. Mild cardiomegaly. Mediastinal and hilar contours are within normal limits. Bony thorax no acute abnormality. Miscellaneous: None Impression: Mild CHF Reviewed, dictated and finalized at location [facility] DS: Summary Hospital Course Reason for hospitalization: hyponatremia Hospital Course: Margarita Woods is a 60 year old female with PMH of COPD, hypothyroidism, CHF and essential tremors. Patient denies alcohol intake, quit smoking 3 years ago, endorses daily marijuana use. Patient presented to ER with complaints of a 10 pound weight gain over the last 3 days, sleepiness and intermittent lower leg cramps for months. Patient reports she was seen at another hospital 3 times over the last few weeks without a specific diagnosis and no admission. Patient was also seen by her PCP 2 days ago without any medication changes or recommendations. In the ER the patient's lab work showed a sodium level of 128, potassium 3.2, creatinine 1.2, BNP 54, TSH 72. Patient normally goes to [facility] so there are no old labs for comparison. Patient's chest x-ray showed mild CHF. Patient was admitted for observation. Nursing staff requested records from [facility] and was sent an ER report from the last few weeks. Patient's sodium level is chronically low. Patient's TSH was elevated and her levothyroxine dose was adjusted from 112 mctg to 125 mcg recently. Will continue this dose. Patient reports she is supposed to wear oxygen 2L at night time but has been wearing it continuously. We trialed removing the oxygen with a continuous pulse ox in place and as soon as patient starts sleeping her oxygen dips into the 70s. Patient instructed to wear her oxygen 24 hours a day until she sees her PCP. Patient needs an outpatient sleep study as it appears she has sleep apnea. On further conversation with the patient, it appears she was recommended some time ago that she had severe sleep apnea but refused a CPAP. I had a discussion with her that she needs to redo a sleep study and wear the CPAP as she will continue to have daytime sleepiness until she wears her CPAP regularly that was prescribed. Patient voices understanding. Patient was given potassium to replace her electrolytes. Patient does not appear fluid overloaded on exam and denies dyspnea. Patient will be discharged home on her current home medications. Patient needs to follow up with her PCP for further medication adjustments and a sleep study. Patient was discahrged home on a potassium supplement as she reports hers was stopped some time ago. Patient was discharged home with family. Time Spent with Patient Time attestation: Total time spent providing and/or coordinating discharge services: 25 Minutes DS: Admitting Diagnosis Discharge Date 06/29/2025 Admitting Diagnosis hyponatremia DS: Discharge Diagnosis Discharge Diagnosis (1) Hyponatremia: Code(s): E87.1 - Hypo-osmolality and hyponatremia Status: Acute Assessment and Plan: Na 128 on admission on review of records from [facility] this is a chronic issue (2) COPD (chronic obstructive pulmonary disease): Code(s): J44.9 - Chronic obstructive pulmonary disease, unspecified Status: Acute Assessment and Plan: no signs of exacerbation s/p nebs and IV steroids no need for steroids on discharge patient needs to wear o2 24 hours a day as she sleeps frequently and desaturates while asleep patient needs an outpatient sleep study, she will contact her PCP continue inhalers (3) Hypokalemia: Code(s): E87.6 - Hypokalemia Status: Acute Assessment and Plan: s/p replacement patient discharged on PO potassium supplement (4) Hypothyroidism: Code(s): E03.9 - Hypothyroidism, unspecified Status: Acute Assessment and Plan: per OSH records patients PCP recently increased her levothyroxine dose from 112 mcg to 125 mcg patient instructed to start the new dose on discharge Discharge Plan Discharge Attending physician on discharge: Garrett Angulo Consulting providers: Nikki Jorge; Franklyn Reyes; Fran Rosen Discharging Clinician: Nikki Jorge Patient Disposition: Home Activity: as tolerated Diet: heart healthy Discharge Instructions: Please call yoru PCP and ask for an outpatient sleep study as soon as possible. Wear your oxygen at 2L by NC at all times. Continue your home medications as ordered. Patient Instructions: Potassium Chloride (By mouth), COPD (Chronic Obstructive Pulmonary Disease) (DC), Fall Prevention (DC) Patient Language: [place] Sudanese Stand Alone Forms: General Discharge Information Follow-up/Referrals: Ashly,Kevin Viera MD [Primary Care Provider] Referral Note: call for an appointment to be seen within 1-2 weeks of discharge. Ask for a lab test to check your potassium level, goal will be to keep it around 4 to help with leg cramping. Discharge Medications: New levothyroxine [Synthroid] 125 mcg Tablet 125 mcg PO DAILY@0630 Qty: 30 0RF potassium chloride [Klor-Con M20] 20 mEq tablet,ER particles/crystals 20 meq PO DAILY Qty: 30 0RF Continued albuterol sulfate 2.5 mg /3 mL (0.083 %) solution for nebulization 2.5 mg inhalation Q4H PRN (Reason: shortness of breath or wheezing) albuterol sulfate 90 mcg/actuation HFA aerosol inhaler 2 puff INHALATION Q4H PRN (Reason: shortness of breath or wheezing) aripiprazole 15 mg tablet 15 mg PO DAILY fluoxetine 40 mg capsule 40 mg PO QPM famotidine 40 mg tablet 40 mg PO DAILY hydrocodone-acetaminophen 10-325 mg tablet 1 tablet PO Q6H PRN (Reason: pain) furosemide 20 mg tablet 20 mg PO DAILY fludrocortisone 0.1 mg tablet 0.1 mg PO .oral hydrocortisone 5 mg tablet 5 mg PO DAILY primidone 50 mg tablet 50 mg PO DAILY tizanidine 4 mg tablet 4 mg PO DAILY Discontinued levothyroxine 112 mcg tablet 112 mcg PO DAILY@0630 Date of admission: 06/28/25 18:18 Primary Care Provider: Ashly,Kevin Viera Admitting Provider: Garrett Angulo Attending physician on admission: Garrett Angulo Condition: Stable Quality VTE Prophylaxis VTE prophylaxis: mechanical ordered
--- NOTE | 2025-06-29 13:59 | PC.NURSE ---
Today at 1340 all discharge orders discussed with patient saying no when asked if she had any questions. Patient family here to assist home. Patient with home O2 at 2L in place via WC to family vehicle in route to home. No questions asked by family about discharge. PT assited to car without difficulty.
--- NOTE | 2025-07-03 09:57 | PC.NURSE ---
Wrong number, unable to do follow up call.
--- OUTSIDE RECORDS SUMMARY | 2025-07-03 11:28 | XMS_ITS | Encounter Summary ---
Author Organization [facility] Address [address] [place] [address] Care Team Providers Care Environmental Assistant Name Role Phone Ivan Rubin MD Primary Care Provider [phone] Kevin Limon MD Primary Care Provider [phone] Encounter Details Date Type Department Care Team (Late st Contact Info) Description 01/08/2019 Abstract SFL CONVERSION [address] [place] [address] , Generic Conversion, Social History Tobacco Use Types Packs/Day Years Used Date Smoking Tobacco: Never Assessed Comments Unknown Sex and Gender Information Value Date Recorded Sex Assigned at Not on file 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
--- OUTSIDE RECORDS SUMMARY | 2025-07-03 11:28 | XMS_ITS | Clinical Summary ---
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 Gender Identity Not on file Sexual Orientation Not on file Last Filed Vital Signs Vital Sign Reading Time Taken Comments Blood Pressure 114/72 06/11/2022 2:41 PM YOUTH OFFICER Pulse 94 06/11/2022 2:41 PM YOUTH OFFICER Temperature 35.8 C (96.4 F) 06/11/2022 2:41 PM YOUTH OFFICER Respiratory Rate 16 06/11/2022 2:41 PM YOUTH OFFICER Oxygen Saturation 96% 06/11/2022 2:41 PM YOUTH OFFICER Inhaled Oxygen Concentration - - Weight 60.5 [...] discharge from hospital Lifestyle No Danisha Bhagat, process controller Procedure Name Priority Date/Time Associated Diagnosis Comments MG SCREENING W BABATUNDE WANDA DIGI Routine 07/28/2019 9:24 AM YOUTH OFFICER Visit for screening mammogram from Last 3 Months or Most Recently Relevant to Health Maintenance Results * MG SCREENING W BABATUNDE WANDA DIGI (07/28/2019 9:24 AM YOUTH OFFICER) Anatomical Region Laterality Modality Breast Bilateral Mammography 08/01/2019 8:37 AM YOUTH OFFICER Impressions 08/01/2019 8:41 AM YOUTH OFFICER IMPRESSION: No interval features to suggest malignancy. In the absence of clinical symptoms, return for annual screening due in one year. RECOMMENDATION: Routine Screening, BILATERAL in 1 year ASSESSMENT: ACR BI-RADS 2 - BENIGN FINDING(S) Interpreted By: Vera Youssef MD, 08/01/2019 8:37 AM Narrative 08/01/2019 8:41 AM YOUTH OFFICER EXAMINATION: BILATERAL SCREENING MAMMOGRAPHY CLINICAL INDICATION: 56 [...] Relevant to Health Maintenance Insurance [employer] MEDICARE [facility] Advance Directives * Full Code (Latest Code Status on File) Date Activated Date Inactivated Comments 04/16/2022 11:14 AM * Full Code Date Activated Date Inactivated Comments 04/01/2022 11:27 PM 04/10/2022 2:52 PM Care Teams General Cleaner Relationship Specialty Start Date End Date Kevin Limon MD PCP - General FAMILY PRACTICE 04/10/22
== END 2025-06-29 13:40 | disposition home or self-care (01) | DRG 189 ==
LOC: CHSED 18:21 → CHS2ND 18:26
PROVIDERS: Nurse Practitioner Adult Health; Admitting Provider Internal Medicine; Emergency Provider Emergency Medicine; PCP Family Medicine; Visit Provider Internal Medicine
DX: Z87.891 Personal history of nicotine dependence; J96.01 Acute respiratory failure with hypoxia; G47.62 Sleep related leg cramps; J44.9 Chronic obstructive pulmonary disease, unspecified; N19 Unspecified kidney failure; E03.9 Hypothyroidism, unspecified; E87.6 Hypokalemia; E87.1 Hypo-osmolality and hyponatremia; F12.90 Cannabis use, unspecified, uncomplicated; I50.9 Heart failure, unspecified; R25.1 Tremor, unspecified; Z20.822 Contact with and (suspected) exposure to COVID-19; G47.33 Obstructive sleep apnea (adult) (pediatric); Z91.199 Patient's noncompliance with other medical treatment and regimen due to unspecified reason
CPT/HCPCS: 36415; 36600; 71045; 80053; 82805; 83735; 83880; 84443; 84484; 85025; 85610; 85730; 87040; 87493; 87637; 93005; 94640; 99285; A9270; J2919; J7030